=== PATIENT | male | born 1970 | race Hispanic/Latino ===

== ENCOUNTER 2019-07-31 17:30 | Observation (INO) | payer SELFPAY ==
[2019-07-31] VITALS (8 sets, daily range): BP systolic 137–168; BP diastolic 80–95; PULSE 70–90; RESP 16–18; TEMP 36.6–37.2; O2SAT 96–98; BMI 33.3; BMI 34.3; BMI 34.4
--- NOTE | 2019-07-31 17:42 | CT_ITS ---
We are attempting to reach an attending provider to discuss findings. An addendum with communication details will be sent when the communication is complete. STUDY: CT ABDOMEN AND PELVIS WITH CONTRAST REASON FOR EXAM: Male, 48 years old. Right lower quadrant pain RADIATION DOSAGE (If Supplied By Facility): TECHNIQUE: Transaxial images were obtained from the dome of the diaphragm to the symphysis pubis without oral contrast. 100ML ml of 100mL Isovue-300 contrast was administered. Sagittal and coronal images were reconstructed. Individualized dose optimization techniques were used for this CT. COMPARISON: None. FINDINGS: The visualized lung bases are clear. The visualized portions of the heart and pericardium are within normal limits. There are no calcified gallstones present. The liver is within normal limits. There are no suspicious hepatic lesions. The spleen is normal in size. The pancreas is within normal limits. The adrenal glands are within normal limits. There are no obstructing renal stones. There is a right renal upper pole 2 mm stone. There is no hydronephrosis. There are no focal renal lesions. Normal visualized stomach. There is no bowel obstruction or inflammation. There is increased diameter of the appendix with adjacent inflammatory changes. There is trace right lower quadrant free fluid. There is no evidence of rupture or abscess. There is an appendicolith at the appendix base. The aorta is normal in caliber. There is no abdominal or pelvic free air, fluid collection or lymphadenopathy. There are no destructive osseous lesions. CT/Abdomen/Pelvis W IV Cont ONLY IMPRESSION: Acute appendicitis. Right renal upper pole 2 mm nonobstructing stone. Electronically Signed: Hussain Liang, at 19:59 EST Tel , Service support ,
--- NOTE | 2019-07-31 17:44 | ED.VIS.GEN ---
History of Present Illness Chief Complaint: Abd Pain Informant: Patient Onset: Today Context: Gradual Onset Timing: Continuous Current Severity: Moderate Maximum Severity: Severe Narrative: Patient is a 48-year-old male with no significant medical history no prior surgeries who presents to the emergency department abdominal pain. Patient states this morning, he had a dull ache diffusely in his abdomen. He states since then, it radiated to his right lower quadrant. He is been nausea without vomiting. He does admit some chills and sweats. He denies any fevers. He is never had pain like this before. He has no history of prior abdominal surgery. He is otherwise been in his normal state of health. Prior similar symptoms: No Recent Illness/Hospitalization: No Past Medical History - Allergies and Home Meds Allergies/Adverse Reactions: Allergies No Known Allergies Allergy (Verified 07/31/19 17:33) Primary Care Physician: Care Physician,No Primary [Primary Care Provider] - Prior records reviewed: Yes Past Medical History: - - Asthma Surgical History: no surgical history Smoking Status: Current every day smoker Review of Systems General: Reports: Chills. Denies: Fever, Sweats Eyes: Denies: Visual changes - bilaterally, Diplopia ENT: Denies: Rhinorrhea, Sore throat Cardiovascular: Denies: Chest pain, Palpitations Respiratory: Denies: Dyspnea, Cough, Dyspnea on exertion Gastrointestinal: Reports: Abdominal pain, Nausea. Denies: Vomiting, Diarrhea, Melena, Hematochezia Genitourinary: Denies: Dysuria, Hematuria, Frequency Musculoskeletal: Denies: Back pain, Extremity Pain Skin: Denies: Rash, Wounds Neurological: Denies: Headache, Weakness, Numbness Physical Exam Vital Signs/Narrative: Vital Signs Temp Pulse Resp BP Pulse Ox 07/31/19 17:31 97.8 F 72 18 168/95 H 98 Inital Vital Signs reviewed: Yes General: Well nourished, Well developed, No Acute Distress Head: Normocephalic, Atraumatic Eyes: Perrl, EOMI ENT: Moist mucous membranes, No rhinorrhea Neck: Supple, Nontender Cardiovascular: Regular rate, Regular rhythm, No murmurs Respiratory: No distress, CTA bilaterally, Chest nontender Abdomen: Soft, Nondistended, Normal bowel sounds, Tender, Guarding Back: Nontender, Normal Inspection Extremities: Nontender, No edema Skin: Normal color, No rash Neurological: Alert, Oriented x3, Cranial nerves II-XII grossly intact, Normal Strength, Normal Sensation Psychological: Normal affect, Normal Mood Diagnostic/Tx/Re-eval Abnormal Lab Results 07/31/19 07/31/19 17:55 17:55 WBC 14.6 H RBC 5.49 Hgb 18.1 H* Hct 51.3 MCV 93.4 MCH 33.0 H MCHC 35.3 RDW Std Deviation 38.2 RDW Coeff of Elizabeth 11.1 L Plt Count 216 MPV 10.2 Immature Gran % (Auto) 0.400 Neut % (Auto) 81.9 H Lymph % (Auto) 12.4 L [place] % (Auto) 4.6 Eos % (Auto) 0.4 Baso % (Auto) 0.3 Absolute Neuts (auto) 11.9 H Absolute Lymphs (auto) 1.80 Nucleated RBC % 0 Diff Path Review May foll Platelet Estimate ADEQUATE RBC Morphology N CHROM Anisocytosis RARE Macrocytosis RARE Sodium 137 Potassium 4.8 Chloride 107 Carbon Dioxide 25.0 Anion Gap 5 BUN 10 Creatinine 0.73 Estim Creat Clear Calc 105.31 Est GFR (MDRD) Af Amer 146 Est GFR (MDRD) Non-Af 121 BUN/Creatinine Ratio 13.7 Glucose 124 H Calcium 9.1 Total Bilirubin 0.90 AST 37 ALT 56 Alkaline Phosphatase 93 Total Protein 7.8 Albumin 3.7 Globulin 4.1 Albumin/Globulin Ratio 0.9 Lipase 85 - Medical Decision Making The patient presents with worsening pain that radiates into his right lower quadrant with nausea and chills. My concern is for acute appendicitis. IV was established. Patient was given analgesics with some improvement of pain but was still uncomfortable. Screening labs do show leukocytosis. He also has elevated hemoglobin, likely secondary to smoking history. Patient underwent CT of the abdomen pelvis. The formal read is currently pending but it does appear as if he has acute appendicitis without perforation. The patient was started on Zosyn. He was discussed with Dr. Tovar he will be in to evaluate the patient for final disposition. Impression 1. Acute appendicitis ED Disposition - Plan for ED Patient: Referrals: Care Physician,No Primary [Primary Care Provider] -
[2019-07-31] MEDS: 0.9% Normal Saline 1,000 ML 1000 ML IV (18:02)
[2019-07-31] MEDS: Ondansetron 4 MG/2 ML Vial IV (18:02)
[2019-07-31] MEDS: Morphine 4 MG/ML Syringe IV (18:02)
[2019-07-31 18:16] LABS: Absolute Neutrophil Count 11.9 X10^3/uL (2.0-7.7); Basophil# 0.04 X10^3/uL; Basophil% 0.3 % (0-1); Eosinophil# 0.06 X10^3/uL; Eosinophils% 0.4 % (0-5); Hematocrit 51.3 % (40-54); Lymphocyte % 12.4 % (19-41); Mean Corp Hgb Conc 35.3 g/dL (32-36); Mean Corpuscular Volume 93.4 fL (80-94); Mean Platelet Vol. 10.2 fl (6.2-12.0); Monocyte# 0.67 X10^3/uL; Monocyte% 4.6 % (0-10); NRBC Flagged by Analyzer 0 % (0-5); Neutrophil # 11.92 X10^3/uL (2.7-7.7); Neutrophil % 81.9 % (47-70); Platelet Count 216 K/mm3 (150-450); RBC Distribution Width CV 11.1 % (11.6-14.6); RBC Distribution Width SD 38.2 fl (35.1-43.9); Red Blood Count 5.49 M/mm3 (4.6-6.2); White Blood Count 14.6 K/mm3 (4.4-11.0)
[2019-07-31 18:26] LABS: Differential Indicated SCAN CRITERIA MET; Hemoglobin 18.1 g/dL (13.0-16.5)
[2019-07-31 18:28] LABS: ALB/GLOB Ratio 0.9 RATIO (0.9-2.4); AST(SGOT) 37 U/L (15-37); Alanine Aminotransfer ALT/SGPT 56 U/L (16-61); Albumin, Serum 3.7 g/dL (3.2-5.0); Alkaline Phosphatase 93 U/L (45-117); Anion Gap 5 (5-15); BUN 10 mg/dL (7-18); BUN/Creat Ratio 13.7 RATIO (10-20); Calcium,Total 9.1 mg/dL (8.5-10.1); Chloride 107 mmol/L (98-107); Creatinine, Serum 0.73 mg/dL (0.70-1.30); EST Glomerular Filtration Rate 121 mL/min (>60); Est Glom Filt Rate - Afr Amer 146 mL/min (>60); Estimated Creatinine Clearance 105.31 ml/min; Globulin 4.1 g/dL (2.2-4.2); Glucose 124 mg/dL (74-106); Lipase 85 U/L (73-393); Potassium 4.8 mmol/L (3.5-5.1); Protein, Total 7.8 g/dL (6.4-8.2); Sodium Level 137 mmol/L (136-145)
[2019-07-31 18:45] LABS: Anisocytosis RARE; Macrocytosis RARE; Platelet Estimate ADEQUATE (ADEQ); Red Cell Morphology N CHROM NORMAL (NORM C&C)
[2019-07-31] MEDS: HYDROmorphone 1 MG/ML Syringe IV (19:36)
[2019-07-31 19:37] LABS: Bacteria 0 SEEN /hpf (None Seen); Mucous, Urine 0 SEEN /hpf (<or=2+); Red Blood Cells-Urine 0 SEEN /hpf (0-5); Squamous Epithelial Cells - UA 0 SEEN /hpf (0-5); White Blood Cells 0 SEEN /hpf (0-5)
--- NOTE | 2019-07-31 20:02 | HP.PCM_ITS ---
Problem List (1) Acute appendicitis Status: Acute Qualifiers: Acute appendicitis type: with localized peritonitis Appendicitis gangrene presence: unspecified whether gangrene present Appendicitis perforation presence: without perforation Appendicitis abscess presence: without abscess Qualified Code(s): K35.30 - Acute appendicitis with localized peritonitis, without perforation or gangrene History of Present Illness Date of Admission: 07/31/19 The patient is a 48 year old M with no significant medical history no prior surgeries who presents to the emergency department abdominal pain. Patient states this morning, he had a dull ache diffusely in his abdomen. He states since then, it radiated to his right lower quadrant. He is been nausea without vomiting. He does admit some chills and sweats. He denies any fevers. He is never had pain like this before. He has no history of prior abdominal surgery. He is otherwise been in his normal state of health. Past Medical History Allergies No Known Allergies Allergy (Verified 07/31/19 17:33) Home Medications: Ambulatory Orders Medication Instructions Recorded Guaifenesin/Ephedrine HCl 1 ea PO DAILY 07/31/19 [Primatene Asthma Tablet] Surgical History: no surgical history Smoking Status: Current every day smoker Tobacco Use: Cigarettes - *Family History Maternal History Items: No pertinent history Review of Systems Constitutional: Reports: Anorexia, Chills Cardiovascular: Denies: Chest Pain, Chest Pressure, Chest Tightness, Palpitations Respiratory: Denies: Cough, Hemoptysis, Shortness of breath at rest, Shortness of breath upon exertion, Wheezing Gastrointestinal: Reports: Abdominal Pain, Constipation Genitourinary: Denies: Dysuria, Frequency, Hematuria, Urgency VTE Information - Inpt Only VTE Present on Admission: No VTE Mechan Device Prophylaxis: SCD's VTE Pharm Prophylaxis ordered?: No Reason prophylaxis not ordered:: Treatment Not Indicated Patient Problems: Active and Suspected Problems Acute appendicitis (Acute) - Physical Exam Vitals/I&O's: Vital Signs Temp Pulse Resp BP Pulse Ox 97.8 F 70 18 155/80 H 96 07/31/19 17:31 07/31/19 19:30 07/31/19 19:30 07/31/19 19:30 07/31/19 19:30 Oxygen Delivery Method Room Air Weight: 200 lb Body Mass Index (BMI) 33.3 General: Alert, Oriented x3 Oral: Moist Mucosa Neck: Supple, No JVD Lungs: Clear to auscultation Cardiovascular: Regular rate, Regular Rhythm, No murmurs Abdomen: Bowel Sounds Not Present, Guarding, Tender Extremities: No clubbing, No cyanosis, No edema Skin: No rashes, No breakdown Neurological: Cranial nerves II-XII grossly intact Laboratory Results 07/31/19 17:55: WBC 14.6 H, RBC 5.49, Hgb 18.1 H*, Hct 51.3, MCV 93.4, MCH 33.0 H, MCHC 35.3, RDW Std Deviation 38.2, RDW Coeff of [place] 11.1 L, Plt Count 216, MPV 10.2, Immature Gran % (Auto) 0.400, Neut % (Auto) 81.9 H, Lymph % (Auto) 12.4 L, [place] % (Auto) 4.6, Eos % (Auto) 0.4, Baso % (Auto) 0.3, Absolute Neuts (auto) 11.9 H, Absolute Lymphs (auto) 1.80, Nucleated RBC % 0, Diff Path Review May foll, Platelet Estimate ADEQUATE, RBC Morphology N CHROM, Anisocytosis RARE, Macrocytosis RARE 07/31/19 17:55: Sodium 137, Potassium 4.8, Chloride 107, Carbon Dioxide 25.0, Anion Gap 5, BUN 10, Creatinine 0.73, Estim Creat Clear Calc 105.31, Est GFR (MDRD) Af Amer 146, Est GFR (MDRD) Non-Af 121, BUN/Creatinine Ratio 13.7, Glucose 124 H, Calcium 9.1, Total Bilirubin 0.90, AST 37, ALT 56, Alkaline Phosphatase 93, Total Protein 7.8, Albumin 3.7, Globulin 4.1, Albumin/Globulin Ratio 0.9, Lipase 85 07/31/19 19:22: Urine Color Pending, Urine Clarity Pending, Urine pH Pending, Ur Specific [place] Pending, Urine Protein Pending, Urine Glucose (UA) Pending, Urine Ketones Pending, Urine Occult Blood Pending, Urine Nitrite Pending, Urine Bilirubin Pending, Urine Urobilinogen Pending, Ur Leukocyte Esterase Pending, Urine RBC Pending, Urine WBC Pending, Ur Squamous Epith Cells Pending, Urine Bacteria Pending, Urine Mucus Pending Assessment/Plan All Active Problems Acute appendicitis (Acute) Plan is to perform a laparoscopic appendectomy on the patient. Risk benefits to include bleeding infection possible delayed abscess which may require further surgery have been discussed with the patient in addition he understands that there is a risk of blood clots heart attacks pneumonias and/or strokes. He had the opportunity ask questions and he agrees to proceed
[2019-07-31 20:13] LABS: Color, Urine Yellow (Yellow); Glucose, Dipstick Normal (Normal); Ketone-Dipstick Negative (Negative); Leukocyte Esterase-Dipstick Negative /ul (Negative); Nitrite-Dipstick Negative (Negative); Occult Blood-Urine Negative /ul (Negative); Protein-Dipstick Negative (Negative); Urine Bilirubin Dipstick Negative (Negative); Urine Clarity Clear (Clear); Urine Urobilinogen 4 mg/dl (Normal)
--- NOTE | 2019-07-31 20:45 | APP_PTH ---
PATIENT: BENJY DUMONT V LOC: MS3 U#:[id number] AGE/SX: 48/M ROOM: GA312 RE07/31/[address]: Dr. Skyler Tovar MD : 1970 BED: 1 DIS: 08/02/2019 SPEC #: [id number] RECD: 08/01/19 08:31 STATUS: BROOK BERTIN #: [id number] JUNIOR: 07/31/19 20:[address]: Skyler Tovar DEPT: SURGICAL PATHOLOGY RECD BY: Brayan Soliz ENTERED: 08/01/19 09:40 SP TYPE: APPENDIX OTHR DR: No Primary Care Phys Tissues: Appendix, NOS Procedures: Surgery Specimen Level III HEADER OPERATION: Laparoscopic appendectomy PRE-OP DIAGNOSIS: Acute appendicitis TISSUE SUBMITTED: Appendix MICROSCOPIC DIAGNOSIS Appendix, appendectomy: Acute necrotizing appendicitis. Acute serositis. AM:iggy 08/02/19 COMMENT Case has been reviewed in consultation with Dr. Copeland who concurs with the above diagnosis. IDC:SJ MICROSCOPIC DESCRIPTION Slides are reviewed. GROSS DESCRIPTION Received is one container labeled with the patient's name and designated appendix. The specimen consists of a C-shaped appendix measuring 9 cm in length and up to 1 cm in diameter. The attached periappendiceal adipose tissue measures up to 3 cm in width. The serosa is congested and covered with chawla, purulent exudate. No obvious perforation is identified. Tip of appendix shows whitish area measuring 0.5 cm in greatest dimension. The lumen contains fecal material. No fecalith is identified. The entire appendix is submitted in four cassettes. Cassette 1 contains the tip and proximal portion. / CLARENCE:iggy 08/01/19 TC:2 CPT: 30134
--- NOTE | 2019-07-31 20:50 | PCM.OPRPT ---
Problem List (1) Acute appendicitis Status: Acute Qualifiers: Acute appendicitis type: with localized peritonitis Appendicitis gangrene presence: unspecified whether gangrene present Appendicitis perforation presence: without perforation Appendicitis abscess presence: without abscess Qualified Code(s): K35.30 - Acute appendicitis with localized peritonitis, without perforation or gangrene Report of Operation Date of Procedure: 07/31/19 Pre-Operative Diagnosis: Acute appendicitis Post-Operative Diagnosis: Same Surgery/Procedure Performed:: Laparoscopic appendectomy Type of Anesthesia:: General Anesthesiologist: Norma Street Specimen's removed: Appendix Drains: none Estimated Blood Loss (mL): <25 cc Fluids Replaced: 1 L LR Description of Procedure: Patient was brought into the operating room. Placed in the supine position. Under excellent general trach intubation abdomen was sterilely prepped draped usual fashion. Local was injected supraumbilically. Curvilinear incision was made. Dissection was carried down to the fascia. Fascia was grasped with a [place]. Varies needle was placed inside the abdomen. The abdomen was insufflated to 15 torr. A 10/12 trocar was placed without difficulty. Suprapubic #5 trocar was placed in the left lower quadrant #5 trochars placed both of these under direct visualization without injury to underlying structures. Patient was placed in the head down rotated to the left position. Patient was noted to have acute appendicitis I came down on the mesial appendix with an Enseal I had excellent hemostasis I transected the base of the appendix with a 45 linear cutter I had excellent hemostasis I placed a specimen in a specimen bag and delivered through the umbilical port without difficulty. I reinflated the abdomen irrigated out the pelvis irrigated the right lower quadrant and irrigated above the liver all till clear irrigant. No abscess cavity was identified. I remove the trochars under direct visualization good hemostasis was noted. Closed the fascia the umbilical port with a [id number] stitch of 0 Vicryl. Skin incisions were closed with some particular stitches of 4-0 Monocryl. Steri-Strips were applied sterile dressings were applied and the patient tolerated the procedure well. - Admit VTE Documentation VTE Present on Admission: No VTE Mechan Device Prophylaxis: SCD's VTE Pharm Prophylaxis ordered?: No Reason prophylaxis not ordered:: Treatment Not Indicated
[2019-07-31] MEDS: Lactated Ringers 1,000 ML 100 ML IV (23:00)
[2019-08-01] MEDS: HYDROmorphone 1 MG/ML Syringe IV ×5 (00:03→16:35)
[2019-08-01 00:30] VITALS: BP 141/81; PULSE 87; RESP 18; TEMP 36.8; O2SAT 96
[2019-08-01 02:45] VITALS: BP 131/86; PULSE 85; RESP 18; TEMP 36.4; O2SAT 94
--- NOTE | 2019-08-01 07:32 | PCM.PN.SRG ---
Patient Problems: Active and Suspected Problems Acute appendicitis (Acute) Subjective: Patient evaluated resting comfortably in bed. He notes generalized abdominal discomfort. Much improved since admission. Patient notes minimal amount of nausea. Denies vomiting. He noted night sweats however no fever. He tolerated sips of clears overnight. - Physical Exam Vitals/I&O's: Vital Signs Temp Pulse Resp BP Pulse Ox 97.5 F L 85 18 131/86 H 94 08/01/19 02:45 08/01/19 02:45 08/01/19 02:45 08/01/19 02:45 08/01/19 02:45 Oxygen Delivery Method Room Air Weight: 212 lb 15.465 oz Body Mass Index (BMI) 34.3 Intake and Output for Last 24 Hours 07/30/19 07/31/19 08/01/19 23:59 23:59 23:59 Intake Total 1100 / 1200 300 / 300 Output Total 450 / 450 Balance 1100 / 1200 -150 / -150 General: Alert, Oriented x3, Cooperative Abdomen: Soft, Hypoactive Bowel Sounds, Distended, Tender - RLQ, - - Incisions c/d/i. No erythema or infection noted. Very minimal amount of dried blood noted at the umbilical incision. Laboratory Results 07/31/19 17:55: WBC 14.6 H, RBC 5.49, Hgb 18.1 H*, Hct 51.3, MCV 93.4, MCH 33.0 H, MCHC 35.3, RDW Std Deviation 38.2, RDW Coeff of Elizabeth 11.1 L, Plt Count 216, MPV 10.2, Immature Gran % (Auto) 0.400, Neut % (Auto) 81.9 H, Lymph % (Auto) 12.4 L, [place] % (Auto) 4.6, Eos % (Auto) 0.4, Baso % (Auto) 0.3, Absolute Neuts (auto) 11.9 H, Absolute Lymphs (auto) 1.80, Nucleated RBC % 0, Diff Path Review May foll, Platelet Estimate ADEQUATE, RBC Morphology N CHROM, Anisocytosis RARE, Macrocytosis RARE 07/31/19 17:55: Sodium 137, Potassium 4.8, Chloride 107, Carbon Dioxide 25.0, Anion Gap 5, BUN 10, Creatinine 0.73, Estim Creat Clear Calc 105.31, Est GFR (MDRD) Af Amer 146, Est GFR (MDRD) Non-Af 121, BUN/Creatinine Ratio 13.7, Glucose 124 H, Calcium 9.1, Total Bilirubin 0.90, AST 37, ALT 56, Alkaline Phosphatase 93, Total Protein 7.8, Albumin 3.7, Globulin 4.1, Albumin/Globulin Ratio 0.9, Lipase 85 07/31/19 19:22: Urine Color Yellow, Urine Clarity Clear, Urine pH 7.0, Ur Specific [place] 1.010, Urine Protein Negative, Urine Glucose (UA) Normal, Urine Ketones Negative, Urine Occult Blood Negative, Urine Nitrite Negative, Urine Bilirubin Negative, Urine Urobilinogen 4 H, Ur Leukocyte Esterase Negative, Urine RBC 0 SEEN, Urine WBC 0 SEEN, Ur Squamous Epith Cells 0 SEEN, Urine Bacteria 0 SEEN, Urine Mucus 0 SEEN Current Medications Hydromorphone HCl (Dilaudid Inj) 1 - 2 mg IV Q2H PRN PRN PRN Reason: Pain Score 6-10/10 Last Admin: 08/01/19 06:20 Dose: 1 mg Documented by: Lactated Ringer's () 1,000 mls @ 100 mls/hr IV .Q10H [facility] Last Admin: 07/31/19 23:00 Dose: 100 mls/hr Documented by: Piperacillin Sod/Tazobactam (Sod 3.375 gm/ Sodium Chloride) 50 mls @ 12.5 mls/hr IV Q8 [facility] Last Admin: 08/01/19 06:06 Dose: 12.5 mls/hr Documented by: Influenza Virus Vaccine Quadrival (Flucelvax /Fluzone ) 0.5 ml IM .ONCE ONE Stop: 08/01/19 10:01 Ondansetron HCl (Zofran) 4 mg IV Q8H PRN PRN PRN Reason: Nausea Oxycodone HCl (Oxyir) 10 mg PO Q6H PRN PRN PRN Reason: Pain Score 6-10/10 Sodium Chloride () 10 - 40 ml IV UD PRN PRN Reason: SALINE FLUSH Medical Necessity - Tobacco Use Smoking Status: Current every day smoker Tobacco Use: Cigarettes Assessment/Plan All Active Problems Acute appendicitis (Acute) I am following this patient in conjunction with Dr. Tovar. Impression: s/p laparoscopic appendectomy Progressing well Probable discharge later today Code Visit Inpatient E&M: 73660 Subs Hosp L1 - No charge
--- NOTE | 2019-08-01 07:43 | DCINST_ITS ---
Discharge Diet: Light diet - advance as tolerated Discharge Activity: May Not Drive - for 3-5 days or while taking narcotic pain meds. May shower in (days): 1 Lifting Restrictions: 10 pounds for 1 week Call your doctor if your incision/area has: Continuous Slow Oozing, Sudden Increased Bleeding, Increased Pain/ Swelling, Increased Redness, Foul Smelling Discharge Call your doctor if you observe: Fever of 101 or Higher Suture Line Care: Avoid Pulling/Pushing, Avoid Pinching/Bending Cleanse incision/area with: Soap & Water Additional Dressing/Incision Instructions:: Remove waterproof dressings in 2-3 days. Leave steri-strips in place for 1 week. Additional Instructions: You have been prescribed a narcotic medication for pain. If you do not need to take this for pain, ibuprofen or Tylenol will work for pain as well. I would recommend taking a stool softener or Miralax or Milk of magnesia to assist with bowel movement during the first 1 week after surgery or until your bowel movements have returned to your normal. Recommend avoiding foods that may cause gas or bloating as this may make your abdomen more distended and may increase the pain. you may try Gas-X for the bloating/gas pains. Medications to take at Discharge Guaifenesin/Ephedrine HCl [Primatene Asthma Tablet] 2 - 4 tab PO DAILY PRN PRN 07/31/19 Oxycodone HCl/Acetaminophen [Percocet 5/325] 1 - 2 tab PO Q4H PRN PRN 6 Days #30 tab 07/31/19 Allergies/Adverse Reactions: Allergies No Known Allergies Allergy (Verified 07/31/19 17:33) The following prescriptions were given: Oxycodone HCl/Acetaminophen [Percocet 5/325] 1 - 2 tab PO Q4H PRN PRN 6 Days #30 tab PRN Reason: Pain Prescription Printed Primary Care Physician: Care Physician,No Primary [Primary Care Provider] - Test Results: Test results from this visit will be discussed in further detail at your follow- up appointment, if applicable. Please Follow Up With: Cady Wells PA-C - [phone] Proposed Discharge Date: 08/01/19
[2019-08-01 07:51] VITALS: BP 133/87; PULSE 70; RESP 18; TEMP 36.4; O2SAT 95
[2019-08-01] MEDS: Lactated Ringers 1,000 ML 100 ML IV (09:05)
[2019-08-01] MEDS: 0.9% Saline Lock 10 ML Syringe IV ×3 (09:08→22:30)
--- NOTE | 2019-08-01 11:37 | CASEMGMT ---
Social Work Note Pt is listed as self-pay. SW placed a call to [facility] and spoke with Eli in [facility] who will see pt regarding self-pay. Eli Gaffney LOAN INSPECTOR, NURSE STAFF [employer]
[2019-08-01] MEDS: oxyCODONE 5 MG Tablet 10 MG PO ×2 (12:45→22:29)
[2019-08-01 12:49] VITALS: BP 154/98; PULSE 81; RESP 18; TEMP 36.5; O2SAT 96
[2019-08-01 13:30] LABS: Pathologist Review Reviewed
--- NOTE | 2019-08-01 16:12 | CHAPLAIN ---
Type of Pastoral Visit _x__ Initial Visit ___ Follow-up Visit ___ On-call Visit ___ General Patient Visit ___ Spiritual Assessment ___ Family Conference ___ Bereavement ___ Rapid Response ___ Code Blue ___ Other (describe below) Pastoral Care Referral From _x__ Patient ___ Family ___ Nurse ___ Physician ___ Chef Teacher ___ Software Engineering Project Manager ___ Other (describe below) Sacrament/Intervention _x__ Active listening ___ Anointing ___ Presybeterian ___ Bereavement ___ Communion _x__ Yesy exploration ___ _x__ Life review _x__ Prayer ___ Reconciliation ___ Sacrament of Sick _x__ Supportive presence ___ Wedding ___ Other (describe below) Pastoral Comments patient is seeking spiritual direction for his family
[2019-08-01 16:26] VITALS: BP 158/97; PULSE 86; RESP 18; TEMP 36.7; O2SAT 96
[2019-08-01 20:32] VITALS: BP 145/85; PULSE 85; RESP 16; TEMP 36.6; O2SAT 95
[2019-08-02 02:46] VITALS: BP 120/75; PULSE 71; RESP 16; TEMP 36.4; O2SAT 95
[2019-08-02] MEDS: 0.9% Saline Lock 10 ML Syringe IV (05:02)
[2019-08-02] MEDS: oxyCODONE 5 MG Tablet 10 MG PO (05:06)
[2019-08-02 07:49] VITALS: BP 145/95; PULSE 70; RESP 18; TEMP 36.4; O2SAT 97
--- NOTE | 2019-08-02 08:45 | PCM.DC.SUM ---
Discharge Date and Diagnosis - Problem List Patient Problems: Active and Suspected Problems Acute appendicitis (Acute) Date of Admission: 07/31/19 Date of Discharge: 08/02/19 - Primary Discharge Diagnosis Active and Suspected Problems Acute appendicitis (Acute) Hospital Course and Treatment Operations: appendectomy Procedures: None Summary of Care Provided: The patient is a 48 year old M who presented to the ED with right lower quadrant pain. Ct scan of the abdomen/pelvis confirmed acute appendicitis. Dr. Tovar performed a laparoscopic appendectomy on 07/31/2019. Patient tolerated the procedure well. Upon discharge, patient denies nausea, vomiting. He notes abdominal pain has improved. Positive flatus and small bowel movement. Patient Problems: Active and Suspected Problems Acute appendicitis (Acute) - Physical Exam Vitals/I&O's: Vital Signs Temp Pulse Resp BP Pulse Ox 97.6 F L 70 18 145/95 H 97 08/02/19 07:49 08/02/19 07:49 08/02/19 07:49 08/02/19 07:49 08/02/19 07:49 Oxygen Delivery Method Room Air Weight: 212 lb 15.465 oz Body Mass Index (BMI) 34.3 Intake and Output for Last 24 Hours 07/31/19 08/01/19 08/02/19 23:59 23:59 23:59 Intake Total 1100 / 1200 3236.75 / 3236.75 328.25 / 328.25 Output Total 2350 / 2350 Balance 1100 / 1200 886.75 / 886.75 328.25 / 328.25 General: Alert, Oriented x3, Cooperative Abdomen: Soft, Hypoactive Bowel Sounds, Distended - slightly, Tender - minimal RLQ, - - Incisions c/d/i. No erythema or infection noted. Laboratory Results 07/31/19 17:55: Diff Path Review Reviewed Current Medications Hydromorphone HCl (Dilaudid Inj) 1 - 2 mg IV Q2H PRN PRN PRN Reason: Pain Score 6-10/10 Last Admin: 08/01/19 16:35 Dose: 1 mg Documented by: Piperacillin Sod/Tazobactam (Sod 3.375 gm/ Sodium Chloride) 50 mls @ 12.5 mls/hr IV Q8 VIVIAN Last Admin: 08/02/19 05:02 Dose: 12.5 mls/hr Documented by: Sodium Chloride () 250 mls @ 15 mls/hr IV .[id number] PRN PRN Reason: Saline Flush Last Infusion: 08/02/19 05:02 Dose: 0 mls/hr Documented by: Ondansetron HCl (Zofran) 4 mg IV Q8H PRN PRN PRN Reason: Nausea Oxycodone HCl (Oxyir) 10 mg PO Q6H PRN PRN PRN Reason: Pain Score 6-10/10 Last Admin: 08/02/19 05:06 Dose: 10 mg Documented by: Sodium Chloride () 10 - 40 ml IV UD PRN PRN Reason: SALINE FLUSH Last Admin: 08/02/19 05:02 Dose: 10 ml Documented by: Discharge Diet: Light diet - advance as tolerated Discharge Activity: May Not Drive - for 3-5 days or while taking narcotic pain meds. May shower in (days): 1 Call your doctor if your incision/area has: Continuous Slow Oozing, Sudden Increased Bleeding, Increased Pain/ Swelling, Increased Redness, Foul Smelling Discharge Call your doctor if you observe: Fever of 101 or Higher Suture Line Care: Avoid Pulling/Pushing, Avoid Pinching/Bending Cleanse incision/area with: Soap & Water Additional Dressing/Incision Instructions:: Remove waterproof dressings in 2-3 days. Leave steri-strips in place for 1 week. Home Medications: Medications to take at Discharge Guaifenesin/Ephedrine HCl [Primatene Asthma Tablet] 2 - 4 tab PO DAILY PRN PRN 07/31/19 Oxycodone HCl/Acetaminophen [Percocet 5/325] 1 - 2 tab PO Q4H PRN PRN 6 Days #30 tab 07/31/19 Following Prescrptions Were Given to Patient: Oxycodone HCl/Acetaminophen [Percocet 5/325] 1 - 2 tab PO Q4H PRN PRN 6 Days #30 tab PRN Reason: Pain Prescription Printed Primary Care Physician: Care Physician,No Primary [Primary Care Provider] - Please Follow Up With: Cady Wells PA-C - [phone] Additional Instructions: You have been prescribed a narcotic medication for pain. If you do not need to take this for pain, ibuprofen or Tylenol will work for pain as well. I would recommend taking a stool softener or Miralax or Milk of magnesia to assist with bowel movement during the first 1 week after surgery or until your bowel movements have returned to your normal. Recommend avoiding foods that may cause gas or bloating as this may make your abdomen more distended and may increase the pain. you may try Gas-X for the bloating/gas pains. Disposition: Home Patient Condition:: Stable Medical Necessity - Tobacco Use Smoking Status: Current every day smoker Tobacco Use: Cigarettes Meaningful Use Info Meaningful Use Diagnoses (Choose all that apply): None applicable Code Visit Inpatient E&M: 50967 Disch Hosp - No charge
== END 2019-08-02 09:28 | disposition home or self-care (01) ==
LOC: ED 17:57 → SDC 20:37 → MS3 21:38
PROVIDERS: Admitting Provider Surgery; Emergency Provider Emergency Medicine; Visit Provider Surgery
PROC: 0DTJ4ZZ Resection of Appendix, Percutaneous Endoscopic Approach (ICD-10-PCS; CPT 44970; principal; 2019-07-31 20:45)
DX: K35.30 Acute appendicitis with localized peritonitis, without perforation or gangrene (principal); Z23 Encounter for immunization; F17.210 Nicotine dependence, cigarettes, uncomplicated; J45.909 Unspecified asthma, uncomplicated; K21.9 Gastro-esophageal reflux disease without esophagitis
CPT/HCPCS: 44970; 74177; 80053; 81001; 83690; 85025; 88304; 96361; 96365; 96366; 96375; 96376; 99218; 99284; 99406; J7030; J7050; J7120; Q9967; 90686; A4216; C1760; G0378; J2405

== ENCOUNTER 2021-01-22 10:05 | Outpatient (RCR) | payer MEDICARE, SELFPAY ==
[2019-07-31 22:30] VITALS: BMI 34.3
== END 2021-03-03 23:59 ==
LOC: IMMUN 10:05
PROVIDERS: Referring Provider Family Medicine; Visit Provider Family Medicine
DX: Z23 Encounter for immunization (principal)
CPT/HCPCS: 0001A; 0002A; 91300

== ENCOUNTER 2023-02-27 22:15 | Emergency (ER) | payer BC, SELFPAY ==
[2023-02-27 22:15] VITALS: BP 216/117; PULSE 96; RESP 22; TEMP 36.9; O2SAT 97; BMI 32.5
[2023-02-27 22:23] VITALS: BP 193/111; PULSE 99; RESP 16; O2SAT 97
--- NOTE | 2023-02-27 23:03 | EKG12_ITS ---
Test Reason : DYSRHYTHMIA Blood Pressure : / mmHG Vent. Rate : 075 BPM Atrial Rate : 075 BPM P-R Int : 126 ms QRS Dur : 094 ms QT Int : 374 ms P-R-T Axes : 062 050 024 degrees QTc Int : 417 ms Normal sinus rhythm Nonspecific ST abnormality Abnormal ECG Confirmed by RICH RIVERO, XANDER ([id number]), development editor ALIX VÁZQUEZ ([id number]) on 03/01/2023 8:50:32 AM Referred By: SAGRARIO Confirmed By:XADNER VILLANUEVA MD
--- NOTE | 2023-02-27 23:05 | EX.ED.DYSGE1 ---
HPI History of Present Illness Chief Complaint: General Illness Detail of Chief Complaint: Elevated blood pressure, joint pain, bilateral blurred vision, polyuria and Informant: patient Onset/Context/Timing Onset: Days (Detailed in the HPI narrative) Context: Sudden Onset Timing: Continuous Quality: Detailed HPI narrative Location: Detailed HPI narrative Current Severity: Moderate Maximum Severity: Moderate Worsened by: Nothing Relieved by: Nothing Associated Symptoms Associated Symptoms: HPI narrative Narrative Narrative: Pain is a 52-year-old male with history of diabetes who presents with bilateral blurred vision, polyuria polydipsia for the past several days. He has not checked his blood sugar this evening. He is on insulin. Yesterday he complained of significant headache. He does not have a headache presently. He has ringing's ears or decreased hearing. He denies double vision or partial loss of vision. He denies trouble with speech or swallowing. He denies trouble with coordination or balance. He denies paresthesia, anesthesia or motor weakness presently. He did have numbness in his right arm while watching the movies with his son. He denies chest pain. Does endorse shortness of breath and states he has been taking Primatene like it is M&Ms . He is a smoker. He denies history of asthma or COPD. He denies cough. There is no history of VTE and has no risk factor he does complain of right shoulder, elbow and wrist pain. There is no history of gout or pseudogout. He does have history of osteoarthritis of the shoulder. Movement exacerbates his joint pain. He denies nausea, vomiting or diarrhea. Concerned because 1 family member had a stroke at a young age and another number had heart attack. Prior similar symptoms: No Recent Illness/Hospitalization: No [facility] Medical History Borderline hypertension Diabetes Home Medications hydrochlorothiazide 12.5 mg tablet 12.5 mg PO DAILY #30 tabs 02/28/23 [Rx Last Taken Unknown] insulin glargine U-300 conc 300 unit/mL (3 mL) subcutaneous pen (Toujeo Max U-300 SoloStar) 36 unit subcut DAILY 02/28/23 [History Last Taken Unknown] lisinopril 10 mg tablet 10 mg PO DAILY #30 tabs 02/28/23 [Rx Last Taken Unknown] Allergy/AdvReac Type Severity Reaction Status Date / Time No Known Allergies Allergy Verified 02/27/23 22:17 Social History (Updated 02/27/23 @ 23:[address] Clay Calderon MD) household members: family Smoking Status: Current every day smoker tobacco type: cigarettes alcohol intake: current alcohol intake frequency: a few times a month substance use type: does not use ROS ROS ED Constitutional Constitutional ED: Denies chills, fever(s), subjective, sweats or weight loss Eyes Eyes: Reports blurry vision bilateral; Denies change in vision or diplopia ENT ENT ED: Reports ear pain, rhinorrhea and sore throat Cardiovascular Cardiovascular: Denies chest pain, orthopnea, palpitations, paroxysmal nocturnal dyspnea, racing heartbeat or other Respiratory/Chest Respiratory/Chest: Reports dyspnea; Denies cough, dyspnea on exertion, orthopnea or paroxysmal nocturnal dyspnea Gastrointestinal Gastrointestinal: Reports nausea; Denies abdominal pain, constipation, diarrhea, melena or vomiting Genitourinary Genitourinary ED: Denies dysuria, hematuria or urinary frequency Musculoskeletal Musculoskeletal: Reports arthralgias; Denies myalgias Integumentary Denies rash Neurologic Neurologic: Reports paresthesias; Denies headache(s) or weakness Endocrine Endocrinology: Reports cold intolerance, heat intolerance, polydipsia and polyuria Hematologic/Lymphatic Hematologic/Lymphatic: Reports systems reviewed and no addt'l complaints, except as documented EXAM Physical Exam Narrative Exam Narrative: Patient's had several elevated blood pressure readings. Const Vital Signs: 02/27/23 22:15 02/27/23 22:21 02/27/23 22:23 Temperature 98.5 F Temperature Source Temporal Pulse Rate 96 99 Respiratory Rate 22 H 16 Respiratory Effort Short of Breath Respiratory Pattern Normal Blood Pressure 216/117 H 193/111 H Blood Pressure Mean 150 138 Pulse Ox 97 97 Oxygen Delivery Method Room Air 02/28/23 00:22 02/28/23 02:00 Temperature Temperature Source Pulse Rate 68 65 Respiratory Rate 18 16 Respiratory Effort Respiratory Pattern Blood Pressure 174/112 H 175/113 H Blood Pressure Mean 132 133 Pulse Ox 97 99 Oxygen Delivery Method Room Air Positive well nourished and well developed General Appearance ED: well developed and NAD; Negative for cyanotic, diaphoretic or pallor HEENT Reports dry mucous membranes HEENT Narrative: Head is atraumatic normocephalic. Ears normal. Nares patent. Uvula midline. No deviation tongue with protrusion. Mouth ED: Yes dry mucous membranes Mouth: dry mucous membranes Eyes PERRL and EOMs intact bilaterally General Eye ED: Negative for pale conjunctiva or scleral icterus Neck no lymphadenopathy, supple and no JVD Neck Narrative: There are no carotid bruits noted. Chest Wall inspection of chest normal and palpation of chest normal Resp normal respiratory effort and clear to auscultation bilaterally Cardio regular rate, regular rhythm, S1 normal heart sound, S2 normal heart sound and no murmurs GI normal to inspection, nondistended, normoactive bowel sounds, non-tender and non-distended; Negative for hepatosplenomegaly Palpation: soft Neuro oriented x3, CN's II-XII intact bilaterally and no sensory deficits noted Sensorium / Orientation: alert Motor Exam: strength 5/5 throughout Psych mental status grossly normal Skin no rashes or lesions noted, no wounds and skin turgor normal General Skin Exam: Negative for jaundice or pallor MDM MDM MDM Narrative Medical decision making narrative: With history of diabetes and complaint of polyuria and polydipsia and bilateral blurred vision need to evaluate for hyperglycemia. In light of his several elevated blood pressure readings EKG, BMP and UA were obtained to assess for evidence of endorgan dysfunction. Because he complains of dyspnea CBC was obtained to evaluate for anemia. Clinically he does not appear anemic. Lab Data Attestation: I reviewed the patient's lab results. Lab results narrative: CV see as a unremarkable. Basic panel is remarkable for a blood sugar of 389 with a normal CO2 and anion gap. Renal functions normal. Urinalysis is pending. Patient received 8 units of insulin for his hyperglycemia. Because his diastolic is greater than 110 he was given a dose of lisinopril and hydrochlorothiazide in the department. Patient was told he will receive a prescription for blood pressure med and need to follow-up with his doctor. Urinalysis macro is remarkable for glucose only. Micro is pending. Labs: Laboratory Results - last 24 hr 02/27/23 02/27/23 02/27/23 22:40 22:40 23:11 WBC 6.6 RBC 4.93 Hgb 15.8 Hct 47.0 MCV 95.3 H MCH 32.0 MCHC 33.6 RDW Std Deviation 39.8 RDW Coeff of [place] 11.3 L Plt Count 182 MPV 11.2 Immature Gran % (Auto) 1.200 H Neut % (Auto) 44.9 L Lymph % (Auto) 40.5 [place] % (Auto) 7.2 Eos % (Auto) 5.3 H Baso % (Auto) 0.9 Absolute Neuts (auto) 2.9 Absolute Lymphs (auto) 2.66 Nucleated RBC % 0 Sodium 135 L Potassium 4.4 Chloride 104 Carbon Dioxide 24.0 Anion Gap 7 BUN 11 Creatinine 0.89 Estim Creat Clear Calc 88.71 Est GFR (MDRD) Af Amer 115 Est GFR (MDRD) Non-Af 95 BUN/Creatinine Ratio 12.4 Glucose 389 H Calcium 8.6 Urine Color Urine Clarity Urine pH Ur Specific [place] Urine Protein Urine Glucose (UA) Urine Ketones Urine Occult Blood Urine Nitrite Urine Bilirubin Urine Urobilinogen Ur Leukocyte Esterase Urine RBC Urine WBC Ur Squamous Epith Cells Urine Bacteria Urine Mucus POC Glucose 384 H 02/28/23 02/28/23 00:15 01:27 WBC RBC Hgb Hct MCV MCH MCHC RDW Std Deviation RDW Coeff of [place] Plt Count MPV Immature Gran % (Auto) Neut % (Auto) Lymph % (Auto) [place] % (Auto) Eos % (Auto) Baso % (Auto) Absolute Neuts (auto) Absolute Lymphs (auto) Nucleated RBC % Sodium Potassium Chloride Carbon Dioxide Anion Gap BUN Creatinine Estim Creat Clear Calc Est GFR (MDRD) Af Amer Est GFR (MDRD) Non-Af BUN/Creatinine Ratio Glucose Calcium Urine Color Yellow Urine Clarity Clear Urine pH 7.0 Ur Specific [place] 1.005 Urine Protein Negative Urine Glucose (UA) 100 H Urine Ketones Negative Urine Occult Blood Negative Urine Nitrite Negative Urine Bilirubin Negative Urine Urobilinogen Normal Ur Leukocyte Esterase Negative Urine RBC 0 SEEN Urine WBC 0 SEEN Ur Squamous Epith Cells 0 SEEN Urine Bacteria 0 SEEN Urine Mucus 0 SEEN POC Glucose 194 H Rhythm Strip Rhythm Strip: Sinus Rhythm Rate: 86 Ectopy: None EKG Initial EKG: Attestation: I personally reviewed and interpreted this EKG as follows: Interpretation: Sinus Rhythm (Rate is 75. CO interval is 126 ms. Cures duration is 94 ms. QT duration is 374 ms. [place] is normal. There is no acute ischemic changes. There is no evidence of cardiomegaly.) Treatment and Re-Evaluation :: 700 cc of initial liter has infused. Insulin was ordered for hyperglycemia. Since blood pressure is still elevated and there is no evidence of endorgan dysfunction patient was treated with p.o. lisinopril and hydrochlorothiazide. Patient was reassessed at 0122. Blood pressure is 172/112. 0.1 mg of clonidine was ordered. Blood pressure is 172/113. Patient was discharged since this is a significant reduction from presentation of 216/117. He was referred to Dr. Sequeira. Discharge Plan Triage Chief Complaint: General Illness ED Provider: Clay Calderon Dx/Rx/DC Orders Clinical Impression: Type 1 diabetes mellitus with hyperglycemia, Blurred vision, bilateral, Accelerated essential hypertension Prescriptions: New lisinopril 10 mg tablet 10 mg PO DAILY Qty: 30 0RF hydrochlorothiazide 12.5 mg tablet 12.5 mg PO DAILY Qty: 30 0RF No Action Toujeo Max U-300 SoloStar 300 unit/mL (3 mL) insulin pen 36 unit SUBCUT DAILY Label Comments: INJECT 36 UNITS INTO THE SKIN ONCE AT BEDTIME Primary Care Provider: Care Physician,No Primary Referrals: Michael Sequeira MD [Med Staff - [employer]ite [employer] Representative] - 1-2 Weeks Care Physician,No Primary [Primary Care Provider] - Disposition Disposition: Home, Self Care
[2023-02-27] MEDS: 0.9% Normal Saline 1,000 ML 1000 ML IV (23:12)
[2023-02-27 23:31] LABS: Absolute Lymphocyte Count 2.66 X10^3/uL (0.83-4.51); Absolute Neutrophil Count 2.9 X10^3/uL (2.0-7.7); Basophil# 0.06 X10^3/uL; Basophil% 0.9 % (0-1); Eosinophil# 0.35 X10^3/uL; Eosinophils% 5.3 % (0-5); Hemoglobin 15.8 g/dL (13.0-16.5); Lymphocyte # 2.66 X10^3/ul (0.83-4.51); Lymphocyte % 40.5 % (19-41); Mean Corp Hgb Conc 33.6 g/dL (32-36); Mean Corpuscular Volume 95.3 fL (80-94); Mean Platelet Vol. 11.2 fl (6.2-12.0); Monocyte# 0.47 X10^3/uL; Monocyte% 7.2 % (0-10); NRBC Flagged by Analyzer 0 % (0-5); Neutrophil # 2.94 X10^3/uL (2.7-7.7); Neutrophil % 44.9 % (47-70); Platelet Count 182 K/mm3 (150-450); RBC Distribution Width CV 11.3 % (11.6-14.6); RBC Distribution Width SD 39.8 fl (35.1-43.9); Red Blood Count 4.93 M/mm3 (4.6-6.2); White Blood Count 6.6 K/mm3 (4.4-11.0)
[2023-02-27 23:32] LABS: Bedside Glucose 384 mg/dL (74-106)
[2023-02-27 23:36] LABS: Anion Gap 7 (5-15); BUN 11 mg/dL (7-18); BUN/Creat Ratio 12.4 RATIO (10-20); Calcium,Total 8.6 mg/dL (8.5-10.1); Chloride 104 mmol/L (98-107); Creatinine, Serum 0.89 mg/dL (0.70-1.30); EST Glomerular Filtration Rate 95 mL/min (>60); Est Glom Filt Rate - Afr Amer 115 mL/min (>60); Estimated Creatinine Clearance 88.71 ml/min; Glucose 389 mg/dL (74-106); Potassium 4.4 mmol/L (3.5-5.1); Sodium Level 135 mmol/L (136-145)
[2023-02-28 00:21] LABS: Bacteria 0 SEEN /hpf (None Seen); Mucous, Urine 0 SEEN /hpf (<or=2+); Red Blood Cells-Urine 0 SEEN /hpf (0-5); Squamous Epithelial Cells - UA 0 SEEN /hpf (0-5); White Blood Cells 0 SEEN /hpf (0-5)
[2023-02-28 00:22] VITALS: BP 174/112; PULSE 68; RESP 18; O2SAT 97
[2023-02-28] MEDS: Insulin Lispro 100 UNIT/ML INSULN.PEN 8 UNIT SC (00:27)
[2023-02-28 00:29] LABS: Color, Urine Yellow (Yellow); Glucose, Dipstick 100 mg/dl (Normal); Ketone-Dipstick Negative (Negative); Leukocyte Esterase-Dipstick Negative /ul (Negative); Nitrite-Dipstick Negative (Negative); Occult Blood-Urine Negative /ul (Negative); Protein-Dipstick Negative (Negative); Specific Gravity, Urine 1.005 (1.002-1.030); Urine Bilirubin Dipstick Negative (Negative); Urine Clarity Clear (Clear); Urine Urobilinogen Normal (Normal)
[2023-02-28] MEDS: Lisinopril 10 MG Tablet PO (00:37)
[2023-02-28] MEDS: hydroCHLOROthiazide 25 MG Tablet 12.5 MG PO (00:37)
[2023-02-28] MEDS: cloNIDine HCl 0.1 MG Tablet PO (01:28)
[2023-02-28 01:48] LABS: Bedside Glucose 194 mg/dL (74-106)
[2023-02-28 02:00] VITALS: BP 175/113; PULSE 65; RESP 16; O2SAT 99
== END 2023-02-28 03:09 | disposition home or self-care (01) ==
PROVIDERS: Emergency Provider Emergency Medicine; Visit Provider Emergency Medicine
DX: E10.65 Type 1 diabetes mellitus with hyperglycemia (principal); Z79.4 Long term (current) use of insulin; R35.89 Other polyuria; I10 Essential (primary) hypertension; F17.210 Nicotine dependence, cigarettes, uncomplicated; R06.02 Shortness of breath; H53.8 Other visual disturbances
CPT/HCPCS: 80048; 81001; 82962; 85025; 93005; 96360; 96361; 99284; J7030; A4216

== ENCOUNTER 2023-07-23 00:20 | Emergency (ER) | payer BC, SELFPAY ==
[2023-07-23 00:23] VITALS: BP 140/115; PULSE 76; RESP 16; TEMP 36.6; O2SAT 98; BMI 29.5
--- NOTE | 2023-07-23 00:44 | EDS_ITS ---
HPI History of Present Illness Chief Complaint: Hyperglycemia Informant: patient Narrative Narrative: Patient having full body cramping, aching, polydipsia, polyuria, dry mouth for 1-2 weeks. He is a known diabetic, batteries were in his glucometer, he got it fixed tonight and checked his blood sugar and it was reading high so he came to the ER. He states for the past week, he has been on an unknown once daily antibiotic for a sore area on his left lower lateral leg. He states early on before he started the antibiotic he had some spontaneous drainage from it in the shower but he did not pay attention because he did not want to look at it. Since then, no other drainage. He states it is still there and sore/painful, but not getting any worse. Denies any other recent illnesses, denies any recent cough, fevers or chills, or other symptoms. [facility] Medical History Borderline hypertension Diabetes Home Medications hydrochlorothiazide 12.5 mg tablet 12.5 mg PO DAILY #30 tabs 02/28/23 [Rx Last Taken Unknown] insulin glargine U-300 conc 300 unit/mL (3 mL) subcutaneous pen (Toujeo Max U- 300 SoloStar) 36 unit subcut DAILY 02/28/23 [History Last Taken Unknown] lisinopril 10 mg tablet 10 mg PO DAILY #30 tabs 02/28/23 [Rx Last Taken Unknown] Allergy/AdvReac Type Severity Reaction Status Date / Time No Known Allergies Allergy Verified 07/23/23 00:22 Social History household members: family Smoking Status: Current every day smoker tobacco type: cigarettes alcohol intake: current alcohol intake frequency: a few times a month substance use type: does not use ROS ROS ED Constitutional Constitutional ED: Reports body ache(s) and malaise; Denies chills or fever(s) Eyes Eyes: Denies change in vision or diplopia ENT ENT ED: Reports dry mouth; Denies rhinorrhea or sore throat Cardiovascular Cardiovascular: Denies chest pain or palpitations Respiratory/Chest Respiratory/Chest: Denies cough or dyspnea Gastrointestinal Gastrointestinal: Denies abdominal pain, diarrhea, nausea or vomiting Genitourinary Genitourinary ED: Reports urinary frequency; Denies dysuria or hematuria Musculoskeletal Musculoskeletal: Reports back pain; Denies neck pain Integumentary Reports abscess; Denies rash Neurologic Neurologic: Denies headache(s), paresthesias or weakness Psychiatric Psychiatric: Denies anxiety or suicidal thoughts Endocrine Endocrinology: Reports polydipsia and polyuria EXAM Physical Exam Const Vital Signs: 07/23/23 00:23 07/23/23 01:00 Temperature 97.8 F Temperature Source Temporal Pulse Rate 76 Respiratory Rate 16 Respiratory Effort Normal Non-Labored Respiratory Pattern Normal Blood Pressure 140/115 H Blood Pressure Mean 123 Pulse Ox 98 Oxygen Delivery Method Room Air Positive well nourished and well developed Constitutional Narrative: Well-appearing in no distress. Conversive in full sentences, smiling, laughing. General Appearance ED: well developed and NAD HEENT Reports moist mucous membranes normocephalic and atraumatic Eyes PERRL and EOMs intact bilaterally Neck full ROM and supple Resp normal respiratory effort and clear to auscultation bilaterally Cardio regular rate, regular rhythm and no murmurs Rate: Negative for tachycardic GI non-tender and non-distended Auscultation: normoactive bowel sounds Palpation: soft Back/Spine no CVA tenderness General Back: other FROM Extremity normal to inspection Extremity Narrative: Tender small abscess left lateral lower leg, 2 cm in diameter with some induration no spontaneous discharge expressible, borderline pointing. No lymphangitis. General Extremety ED: Yes tenderness; Negative for edema or pulses abnormal General Extremity: Negative for edema or pulses abnormal Neuro oriented x3, CN's II-XII intact bilaterally and no sensory deficits noted Sensorium / Orientation: awake and alert Motor Exam: strength 5/5 throughout Psych mental status grossly normal Skin no rashes or lesions noted and no wounds Skin Narrative: Small abscess lateral aspect of the left lower leg in the middle of it. All compartments soft and nondistended. See above. MDM MDM MDM Narrative Medical decision making narrative: Patient hyperglycemic in the 500s with glycosuria but otherwise work-up negative. He felt a lot better after IV fluids and insulin. Initially patient indicated that he took 2 doses of fast acting insulin prior to arrival, however then he said he was not sure if he took a fast acting or his Toujeo. After a liter of IV fluids, his blood sugar came down to just under 400 so at that point we gave him a dose of insulin. I believe the majority of his symptoms were due to hyperglycemia and mild dehydration. 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 We were able to aspirate some purulent material from that which hopefully will make it better. We looked up some pharmacy information and were able to determine that he was prescribed Bactrim twice daily for 10 days but he has indicated he is only taking it once a day and thinks he mixed it up with his blood pressure medication which she is also taking once a day as prescribed. It is possible this is MRSA, I would advise todd pedroza taking the Bactrim twice daily and continuing that medication for the next 5 days which she has enough pills for, and dressing the area as needed. He has an appointment with PCP in 3 days he is comfortable with that plan. Lab Data Attestation: I reviewed the patient's lab results. Labs: Laboratory Results - last 24 hr 07/23/23 07/23/23 07/23/23 00:27 00:50 01:50 WBC 7.8 RBC 5.34 Hgb 16.9 H Hct 48.6 MCV 91.0 MCH 31.6 MCHC 34.8 RDW Std Deviation 36.0 RDW Coeff of [place] 10.7 L Plt Count 181 MPV 11.3 Immature Gran % (Auto) 0.100 Neut % (Auto) 51.6 Lymph % (Auto) 38.5 [place] % (Auto) 6.3 Eos % (Auto) 2.9 Baso % (Auto) 0.6 Absolute Neuts (auto) 4.0 Absolute Lymphs (auto) 3.01 Nucleated RBC % 0 Sodium 130 L Potassium 5.0 Chloride 96 L Carbon Dioxide 28.0 Anion Gap 6 BUN 16 Creatinine 1.11 Estim Creat Clear Calc 71.13 Est GFR (MDRD) Af Amer 89 Est GFR (MDRD) Non-Af 73 BUN/Creatinine Ratio 14.4 Glucose 535 H* Calcium 9.7 Urine Color Yellow Urine Clarity Clear Urine pH 6.0 Ur Specific [place] 1.015 Urine Protein Negative Urine Glucose (UA) 1000 H Urine Ketones Negative Urine Occult Blood Negative Urine Nitrite Negative Urine Bilirubin Negative Urine Urobilinogen Normal Ur Leukocyte Esterase Negative Urine RBC 0 SEEN Urine WBC 0 SEEN Ur Squamous Epith Cells 0 SEEN Urine Bacteria 0 SEEN Urine Mucus 0 SEEN POC Glucose > 500 H* 07/23/23 02:04 WBC RBC Hgb Hct MCV MCH MCHC RDW Std Deviation RDW Coeff of [place] Plt Count MPV Immature Gran % (Auto) Neut % (Auto) Lymph % (Auto) [place] % (Auto) Eos % (Auto) Baso % (Auto) Absolute Neuts (auto) Absolute Lymphs (auto) Nucleated RBC % Sodium Potassium Chloride Carbon Dioxide Anion Gap BUN Creatinine Estim Creat Clear Calc Est GFR (MDRD) Af Amer Est GFR (MDRD) Non-Af BUN/Creatinine Ratio Glucose Calcium Urine Color Urine Clarity Urine pH Ur Specific [place] Urine Protein Urine Glucose (UA) Urine Ketones Urine Occult Blood Urine Nitrite Urine Bilirubin Urine Urobilinogen Ur Leukocyte Esterase Urine RBC Urine WBC Ur Squamous Epith Cells Urine Bacteria Urine Mucus POC Glucose 398 H Procedures Other Procedures Procedure(s): Simple incision and drainage left lower leg abscess: After locally anesthetizing with 1 cc of plain 1% lidocaine, prepped with chlorhexidine, the patient opted for needle aspiration with an 18-gauge. This was done, and I was able to aspirate less than 0.5 cc of purulent material, redirecting the needle and collapsing the abscess in addition to obtain all possible. Tolerated well no complications dressed with bacitracin and gauze. Discharge Plan Triage Chief Complaint: Hyperglycemia ED Provider: Jayson Reyes Dx/Rx/DC Orders Clinical Impression: Hyperglycemia due to type 2 diabetes mellitus, Abscess of left lower leg, Mild dehydration Instructions: ED Diabetic Hyperglycemia Prescriptions: No Action Toujeo Max U-300 SoloStar 300 unit/mL (3 mL) insulin pen 36 unit SUBCUT DAILY Patient Comments: INJECT 36 UNITS INTO THE SKIN ONCE AT BEDTIME lisinopril 10 mg tablet 10 mg PO DAILY Qty: 30 0RF hydrochlorothiazide 12.5 mg tablet 12.5 mg PO DAILY Qty: 30 0RF Primary Care Provider: Care Physician,No Primary Referrals: Doctor,Your [Non-Staff] - Keep Rosalino appointment Activity Restrictions/Additional Instructions: Continue the antibiotic as prescribed which is 1 capsule 2 times per day. Disposition Disposition: Home, Self Care
[2023-07-23 00:45] LABS: Bedside Glucose > 500 mg/dL (74-106)
[2023-07-23 01:02] LABS: Absolute Lymphocyte Count 3.01 X10^3/uL (0.83-4.51); Basophil# 0.05 X10^3/uL; Basophil% 0.6 % (0-1); Eosinophil# 0.23 X10^3/uL; Eosinophils% 2.9 % (0-5); Hematocrit 48.6 % (40-54); Hemoglobin 16.9 g/dL (13.0-16.5); Lymphocyte # 3.01 X10^3/ul (0.83-4.51); Lymphocyte % 38.5 % (19-41); Mean Corp Hgb Conc 34.8 g/dL (32-36); Mean Corpuscular Hgb 31.6 pg (27.0-32.0); Mean Platelet Vol. 11.3 fl (6.2-12.0); Monocyte# 0.49 X10^3/uL; Monocyte% 6.3 % (0-10); NRBC Flagged by Analyzer 0 % (0-5); Neutrophil # 4.02 X10^3/uL (2.7-7.7); Neutrophil % 51.6 % (47-70); Platelet Count 181 K/mm3 (150-450); RBC Distribution Width CV 10.7 % (11.6-14.6); Red Blood Count 5.34 M/mm3 (4.6-6.2); White Blood Count 7.8 K/mm3 (4.4-11.0)
[2023-07-23] MEDS: 0.9% Normal Saline (1000mL) 1,000 ML 999 ML IV (01:02)
[2023-07-23] MEDS: Lidocaine 1% (20 ml mdv) 20 ML Vial INFILT (01:03)
[2023-07-23 01:20] LABS: Anion Gap 6 (5-15); BUN 16 mg/dL (7-18); BUN/Creat Ratio 14.4 RATIO (10-20); Calcium,Total 9.7 mg/dL (8.5-10.1); Chloride 96 mmol/L (98-107); Creatinine, Serum 1.11 mg/dL (0.70-1.30); EST Glomerular Filtration Rate 73 mL/min (>60); Est Glom Filt Rate - Afr Amer 89 mL/min (>60); Estimated Creatinine Clearance 71.13 ml/min; Glucose 535 mg/dL (74-106); Sodium Level 130 mmol/L (136-145)
[2023-07-23 01:56] LABS: Bacteria 0 SEEN /hpf (None Seen); Mucous, Urine 0 SEEN /hpf (<or=2+); Red Blood Cells-Urine 0 SEEN /hpf (0-5); Squamous Epithelial Cells - UA 0 SEEN /hpf (0-5); White Blood Cells 0 SEEN /hpf (0-5)
[2023-07-23 02:00] LABS: Color, Urine Yellow (Yellow); Glucose, Dipstick 1000 mg/dl (Normal); Ketone-Dipstick Negative (Negative); Leukocyte Esterase-Dipstick Negative /ul (Negative); Nitrite-Dipstick Negative (Negative); Occult Blood-Urine Negative /ul (Negative); Protein-Dipstick Negative (Negative); Specific Gravity, Urine 1.015 (1.002-1.030); Urine Bilirubin Dipstick Negative (Negative); Urine Clarity Clear (Clear); Urine Urobilinogen Normal (Normal)
[2023-07-23] MEDS: Insulin Lispro 100 UNIT/ML INSULN.PEN 14 UNIT SC (02:22)
[2023-07-23 02:23] LABS: Bedside Glucose 398 mg/dL (74-106)
[2023-07-23] MEDS: Smz/Tmp Ds Tablet 1 TABLET PO (02:48)
[2023-07-23 02:51] VITALS: BP 139/77; PULSE 84; RESP 18; O2SAT 95
== END 2023-07-23 02:52 | disposition home or self-care (01) ==
PROVIDERS: Emergency Provider Emergency Medicine; Visit Provider Emergency Medicine
DX: E11.65 Type 2 diabetes mellitus with hyperglycemia (principal); Z79.4 Long term (current) use of insulin; L02.416 Cutaneous abscess of left lower limb; R03.0 Elevated blood-pressure reading, without diagnosis of hypertension; E86.0 Dehydration; F17.210 Nicotine dependence, cigarettes, uncomplicated; Z79.899 Other long term (current) drug therapy
CPT/HCPCS: 10160; 10060; 80048; 81001; 82962; 85025; 96360; 96361; 99284; J7030; A4216

== ENCOUNTER 2023-12-24 14:25 | Emergency (ER) | payer BC, SELFPAY ==
[2023-12-24 14:26] VITALS: BP 144/100; PULSE 92; RESP 14; O2SAT 98
[2023-12-24 14:27] VITALS: BP 177/90; PULSE 96; RESP 16; TEMP 36.6; O2SAT 98; BMI 34.0
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
[2023-12-24] MEDS: Ibuprofen 600 MG Tablet PO (14:59)
== END 2023-12-24 15:03 | disposition home or self-care (01) ==
PROVIDERS: Emergency Provider Emergency Medicine; Visit Provider Emergency Medicine
DX: S16.1XXA Strain of muscle, fascia and tendon at neck level, initial encounter (principal); E11.9 Type 2 diabetes mellitus without complications; Z79.4 Long term (current) use of insulin; V43.52XA Car driver injured in collision with other type car in traffic accident, initial encounter; Y92.410 Unspecified street and highway as the place of occurrence of the external cause; R03.0 Elevated blood-pressure reading, without diagnosis of hypertension; F17.210 Nicotine dependence, cigarettes, uncomplicated
CPT/HCPCS: 99282

== ENCOUNTER 2024-09-08 14:06 | Emergency (ER) | payer BC, SELFPAY ==
[2024-09-08 14:06] VITALS: BP 151/96; PULSE 86; RESP 14; TEMP 36.6; O2SAT 98; BMI 28.3
[2024-09-08 14:20] VITALS: BP 138/90; PULSE 69; RESP 18; O2SAT 98
--- NOTE | 2024-09-08 14:22 | EX.ED.DYSGE1 ---
HPI <JOSE Major - Last Filed: 09/08/24 17:16> History of Present Illness Chief Complaint: Med Refill Narrative Narrative: Patient presenting today requesting to have his insulin refilled. He has been out of it for the past week and a half and does not currently have a PCP to get it refilled. He endorses polyuria and polydipsia. He has a history of diabetes and was previously on metformin but did not tolerate it well. He denies fevers, chills, nausea, and vomiting. PFSH <JOSE Major - Last Filed: 09/08/24 17:16> [facility] Medical History Borderline hypertension Diabetes Home Medications ?Medication ?Instructions ?Recorded ?Last Taken ?Type hydrochlorothiazide 12.5 mg tablet 12.5 mg PO DAILY #30 tabs 02/28/23 Unknown Rx insulin glargine U-300 conc 300 36 unit subcut DAILY 02/28/23 Unknown History unit/mL (3 mL) subcutaneous pen (Toujeo Max U-300 SoloStar) lisinopril 10 mg tablet 10 mg PO DAILY #30 tabs 02/28/23 Unknown Rx insulin glargine U-300 conc 300 30 unit (0.1 mL) subcut DAILY #6 mL 09/08/24 Unknown Rx unit/mL (3 mL) subcutaneous pen (Toujeo Max U-300 SoloStar) Allergy/AdvReac Type Severity Reaction Status Date / Time No Known Allergies Allergy Verified 12/24/23 14:26 Social History household members: family Smoking Status: Current every day smoker tobacco type: cigarettes alcohol intake: current alcohol intake frequency: a few times a month substance use type: does not use ROS <JOSE Major - Last Filed: 09/08/24 17:16> ROS ED Constitutional Constitutional ED: Denies chills or fever(s) Cardiovascular Cardiovascular: Denies chest pain Respiratory/Chest Respiratory/Chest: Denies dyspnea Gastrointestinal Gastrointestinal: Denies abdominal pain, nausea or vomiting Genitourinary Genitourinary ED: Reports urinary frequency; Denies dysuria or hematuria Musculoskeletal Musculoskeletal: Denies arthralgias or myalgias Integumentary Denies rash Neurologic Neurologic: Denies weakness EXAM <JOSE Major - Last Filed: 09/08/24 17:16> Physical Exam Const Vital Signs: 09/08/24 14:06 09/08/24 14:20 09/08/24 16:20 Temperature 98 F Temperature Source Temporal Pulse Rate 86 69 70 Respiratory Rate 14 18 16 Blood Pressure 151/96 H 138/90 H 147/85 H Blood Pressure Mean 114 106 105 Pulse Ox 98 98 98 Oxygen Delivery Method Room Air Room Air Room Air 09/08/24 17:13 Temperature 97.7 F L Temperature Source Pulse Rate 77 Respiratory Rate 16 Blood Pressure 140/71 H Blood Pressure Mean 94 Pulse Ox 98 Oxygen Delivery Method Positive well nourished, well developed and no apparent distress General Appearance ED: well developed HEENT Reports normocephalic, head/scalp atraumatic and dry mucous membranes Mouth ED: Yes dry mucous membranes Mouth: dry mucous membranes Eyes PERRL and EOMs intact bilaterally Neck full ROM and supple Chest Wall inspection of chest normal Resp normal respiratory effort and clear to auscultation bilaterally Cardio regular rate and regular rhythm GI soft to palpation, non-tender, non-distended and no masses Back/Spine normal ROM and normal to inspection Extremity normal to inspection and full ROM Neuro oriented x3, CN's II-XII intact bilaterally, moves all extremities, no focal motor deficits and no sensory deficits noted Sensorium / Orientation: awake and alert Psych mental status grossly normal and thought process normal Skin no rashes or lesions noted and no wounds <Dr. Clay Calderon MD - Last Filed: 09/08/24 16:07> Physical Exam Const Vital Signs: 09/08/24 14:06 09/08/24 14:20 09/08/24 16:20 Temperature 98 F Temperature Source Temporal Pulse Rate 86 69 70 Respiratory Rate 14 18 16 Blood Pressure 151/96 H 138/90 H 147/85 H Blood Pressure Mean 114 106 105 Pulse Ox 98 98 98 Oxygen Delivery Method Room Air Room Air Room Air 09/08/24 17:13 Temperature 97.7 F L Temperature Source Pulse Rate 77 Respiratory Rate 16 Blood Pressure 140/71 H Blood Pressure Mean 94 Pulse Ox 98 Oxygen Delivery Method MDM <JOSE Major - Last Filed: 09/08/24 17:16> MDM MDM Narrative Medical decision making narrative: Patient presenting today requesting to have his insulin refilled. He endorses polyuria and polydipsia. He asked for water several times during my exam and his mucous membranes are dry. Bedside glucose was checked and is 510. Labs will be obtained to rule out DKA and patient will be given a liter of IV fluids. His CBC is unremarkable, sodium 131, glucose 572, UA shows no ketones, he has no anion gap, he does not appear to be in DKA. He was given 10 units of Humalog. On reexamination his glucose is now 323. I have refilled his insulin prescription. I gave him a PCP referral. Encouraged diabetic compliance. He will be discharged home in stable condition. I have personally performed a face to face assessment of the patient and have reviewed the ADITI Note. I performed a substantive portion of the visit including all aspects of the following. My sanders findings include: History is remarkable for patient going to [place] to visit his mother. Apparently he did not have insulin. 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 He went to a pharmacy in [place]. He was informed that his prescription could not be refilled since there was no refills remaining. He presents today for medication refill. Patient's speech is slightly pressured. He does endorse thirst, dry mouth and polyphasia, polyuria and nocturia. He states his tongue and mouth is dry. He denies fever, chills night sweats. He denies cardiac respiratory symptoms. He denies skin lesions. Exam is elevated blood pressure. HEENT exam is remarkable dry tongue and mucosa. Heart is regular. Rate is normal. Is no murmur, gallop or rub. Lungs are clear auscultation with symmetric breath sounds. Abdomen soft nontender. Patient has numerous tattoos. He is alert orient x 3. His speech is slightly pressured. He has no motor or sensory deficit. Medical Decision Making patient's symptoms are consistent with hyperglycemia. Stat blood sugar was greater than 500. Will obtain BMP to assess CO2 anion gap as well as electrolytes. CBC to assess white count and if there is any concern for infection. Urine was obtained to assess for infection as well as ketones and specific gravity. If patient has anion gap we will obtain serum ketones. Patient is not tachypneic which makes likelihood for DKA less likely. Other additions or changes: [None] Lab Data Labs: Laboratory Results - last 24 hr 09/08/24 09/08/24 09/08/24 14:19 14:52 15:00 WBC 9.8 RBC 4.91 Hgb 16.1 Hct 44.0 MCV 89.6 MCH 32.8 H MCHC 36.6 H RDW Std Deviation 35.8 RDW Coeff of Elizabeth 11.1 L Plt Count 228 MPV 10.9 Immature Gran % (Auto) 0.200 Neut % (Auto) 56.5 Lymph % (Auto) 34.7 Vernon % (Auto) 6.7 Eos % (Auto) 1.4 Baso % (Auto) 0.5 Absolute Neuts (auto) 5.5 Absolute Lymphs (auto) 3.40 Nucleated RBC % 0 Sodium 131 L Potassium 4.0 Chloride 96 L Carbon Dioxide 26.0 Anion Gap 9 BUN 18 Creatinine 0.97 Estim Creat Clear Calc 88.24 Est GFR (MDRD) Af Amer 104 Est GFR (MDRD) Non-Af 86 BUN/Creatinine Ratio 18.6 Glucose 572 H* Calcium 9.1 Urine Color Yellow Urine Clarity Clear Urine pH 6.0 Ur Specific [place] 1.015 Urine Protein Negative Urine Glucose (UA) 1000 H Urine Ketones Negative Urine Occult Blood Negative Urine Nitrite Negative Urine Bilirubin Negative Urine Urobilinogen Normal Ur Leukocyte Esterase Negative Urine RBC 0-5 SEEN Urine WBC 0 SEEN Ur Squamous Epith Cells 0 SEEN Urine Bacteria RARE Urine Mucus 0 SEEN POC Glucose > 500 H* <Dr. Clay Calderon MD - Last Filed: 09/08/24 16:07> [facility] Narrative Medical decision making narrative: Patient presenting today requesting to have his insulin refilled. He endorses polyuria and polydipsia. He asked for water several times during my exam and his mucous membranes are dry. Bedside glucose was checked and is 510. Labs will be obtained to rule out DKA and patient will be given IV fluids. I have personally performed a face to face assessment of the patient and have reviewed the ADITI Note. I performed a substantive portion of the visit including all aspects of the following. My sanders findings include: History is remarkable for patient going to [place] to visit his mother. Apparently he did not have insulin. 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 He went to a pharmacy in [place]. He was informed that his prescription could not be refilled since there was no refills remaining. He presents today for medication refill. Patient's speech is slightly pressured. He does endorse thirst, dry mouth and polyphasia, polyuria and nocturia. He states his tongue and mouth is dry. He denies fever, chills night sweats. He denies cardiac respiratory symptoms. He denies skin lesions. Exam is elevated blood pressure. HEENT exam is remarkable dry tongue and mucosa. Heart is regular. Rate is normal. Is no murmur, gallop or rub. Lungs are clear auscultation with symmetric breath sounds. Abdomen soft nontender. Patient has numerous tattoos. He is alert orient x 3. His speech is slightly pressured. He has no motor or sensory deficit. Medical Decision Making patient's symptoms are consistent with hyperglycemia. Stat blood sugar was greater than 500. Will obtain BMP to assess CO2 anion gap as well as electrolytes. CBC to assess white count and if there is any concern for infection. Urine was obtained to assess for infection as well as ketones and specific gravity. If patient has anion gap we will obtain serum ketones. Patient is not tachypneic which makes likelihood for DKA less likely. Other additions or changes: [None] Lab Data Attestation: I reviewed the patient's lab results. Lab results narrative: CBC is unremarkable. Urinalysis is positive for glucose urea. BGT was greater than 500. There was no ketones noted. BMP reveals a blood sugar of 572. CO2 and anion gap are normal. Patient has evidence of pseudohyponatremia due to his hyperglycemia. Labs: Laboratory Results - last 24 hr 09/08/24 09/08/24 09/08/24 14:19 14:52 15:00 WBC 9.8 RBC 4.91 Hgb 16.1 Hct 44.0 MCV 89.6 MCH 32.8 H MCHC 36.6 H RDW Std Deviation 35.8 RDW Coeff of Elizabeth 11.1 L Plt Count 228 MPV 10.9 Immature Gran % (Auto) 0.200 Neut % (Auto) 56.5 Lymph % (Auto) 34.7 Vernon % (Auto) 6.7 Eos % (Auto) 1.4 Baso % (Auto) 0.5 Absolute Neuts (auto) 5.5 Absolute Lymphs (auto) 3.40 Nucleated RBC % 0 Sodium 131 L Potassium 4.0 Chloride 96 L Carbon Dioxide 26.0 Anion Gap 9 BUN 18 Creatinine 0.97 Estim Creat Clear Calc 88.24 Est GFR (MDRD) Af Amer 104 Est GFR (MDRD) Non-Af 86 BUN/Creatinine Ratio 18.6 Glucose 572 H* Calcium 9.1 Urine Color Yellow Urine Clarity Clear Urine pH 6.0 Ur Specific [place] 1.015 Urine Protein Negative Urine Glucose (UA) 1000 H Urine Ketones Negative Urine Occult Blood Negative Urine Nitrite Negative Urine Bilirubin Negative Urine Urobilinogen Normal Ur Leukocyte Esterase Negative Urine RBC 0-5 SEEN Urine WBC 0 SEEN Ur Squamous Epith Cells 0 SEEN Urine Bacteria RARE Urine Mucus 0 SEEN POC Glucose > 500 H* Discharge Plan Triage Chief Complaint: Med Refill ED Midlevel Provider: Aleida Cedeño ED Provider: Clay Calderon Dx/Rx/DC Orders Clinical Impression: Noncompliance with medication regimen, Elevated blood pressure reading with diagnosis of hypertension, Pseudohyponatremia, Controlled type 1 diabetes mellitus with hyperglycemia, with long-term current use of insulin Instructions: ED Diabetic Hyperglycemia Prescriptions: New insulin glargine U-300 conc [Toujeo Max U-300 SoloStar] 300 unit/mL (3 mL) insulin pen 30 unit subcut DAILY Qty: 6 0RF No Action Toujeo Max U-300 SoloStar 300 unit/mL (3 mL) insulin pen 36 unit SUBCUT DAILY Patient Comments: INJECT 36 UNITS INTO THE SKIN ONCE AT BEDTIME lisinopril 10 mg tablet 10 mg PO DAILY Qty: 30 0RF hydrochlorothiazide 12.5 mg tablet 12.5 mg PO DAILY Qty: 30 0RF Primary Care Provider: Care Physician,No Primary Referrals: Gage Pitts DO [Med Staff - Industrial Equipment Wire[employer]] - 1 Week Care Physician,No Primary [Primary Care Provider] - Activity Restrictions/Additional Instructions: You can either follow-up with Dr. Pitts or the Krystal Rocha at [phone], wherever you can follow-up with first. Print Language: Nigerian Disposition Disposition: Home, Self Care
[2024-09-08] MEDS: 0.9% Normal Saline (1000mL) 1,000 ML 999 ML IV (14:44)
[2024-09-08 14:57] LABS: Absolute Neutrophil Count 5.5 X10^3/uL (2.0-7.7); Basophil# 0.05 X10^3/uL; Basophil% 0.5 % (0-1); Eosinophil# 0.14 X10^3/uL; Eosinophils% 1.4 % (0-5); Hemoglobin 16.1 g/dL (13.0-16.5); Lymphocyte % 34.7 % (19-41); Mean Corp Hgb Conc 36.6 g/dL (32-36); Mean Corpuscular Hgb 32.8 pg (27.0-32.0); Mean Corpuscular Volume 89.6 fL (80-94); Mean Platelet Vol. 10.9 fl (6.2-12.0); Monocyte# 0.66 X10^3/uL; Monocyte% 6.7 % (0-10); NRBC Flagged by Analyzer 0 % (0-5); Neutrophil # 5.52 X10^3/uL (2.7-7.7); Neutrophil % 56.5 % (47-70); Platelet Count 228 K/mm3 (150-450); RBC Distribution Width CV 11.1 % (11.6-14.6); RBC Distribution Width SD 35.8 fl (35.1-43.9); Red Blood Count 4.91 M/mm3 (4.6-6.2); White Blood Count 9.8 K/mm3 (4.4-11.0)
[2024-09-08 15:10] LABS: Mucous, Urine 0 SEEN /hpf (<or=2+); Squamous Epithelial Cells - UA 0 SEEN /hpf (0-5); White Blood Cells 0 SEEN /hpf (0-5)
[2024-09-08 15:18] LABS: Color, Urine Yellow (Yellow); Glucose, Dipstick 1000 mg/dl (Normal); Ketone-Dipstick Negative (Negative); Leukocyte Esterase-Dipstick Negative /ul (Negative); Nitrite-Dipstick Negative (Negative); Occult Blood-Urine Negative /ul (Negative); Protein-Dipstick Negative (Negative); Specific Gravity, Urine 1.015 (1.002-1.030); Urine Bilirubin Dipstick Negative (Negative); Urine Clarity Clear (Clear); Urine Urobilinogen Normal (Normal)
[2024-09-08 15:20] LABS: Bedside Glucose > 500 mg/dL (74-106)
[2024-09-08 15:29] LABS: Bacteria RARE /hpf (None Seen); Red Blood Cells-Urine 0-5 SEEN /hpf (0-5)
[2024-09-08 15:55] LABS: Anion Gap 9 (5-15); BUN 18 mg/dL (7-18); BUN/Creat Ratio 18.6 RATIO (10-20); Calcium,Total 9.1 mg/dL (8.5-10.1); Chloride 96 mmol/L (98-107); Creatinine, Serum 0.97 mg/dL (0.70-1.30); EST Glomerular Filtration Rate 86 mL/min (>60); Est Glom Filt Rate - Afr Amer 104 mL/min (>60); Estimated Creatinine Clearance 88.24 ml/min; Glucose 572 mg/dL (74-106); Sodium Level 131 mmol/L (136-145)
[2024-09-08] MEDS: Insulin Lispro 100 UNIT/ML INSULN.PEN 10 UNIT SC (15:56)
[2024-09-08 16:20] VITALS: BP 147/85; PULSE 70; RESP 16; O2SAT 98
[2024-09-08 17:13] VITALS: BP 140/71; PULSE 77; RESP 16; TEMP 36.5; O2SAT 98
[2024-09-08 17:28] LABS: Bedside Glucose 323 mg/dL (74-106)
== END 2024-09-08 17:16 | disposition home or self-care (01) ==
PROVIDERS: Physician Assistant; Emergency Provider Emergency Medicine; Visit Provider Emergency Medicine
DX: E10.65 Type 1 diabetes mellitus with hyperglycemia (principal); Z79.4 Long term (current) use of insulin; T38.3X6A Underdosing of insulin and oral hypoglycemic [antidiabetic] drugs, initial encounter; Z91.148 Patient's other noncompliance with medication regimen for other reason; I10 Essential (primary) hypertension; F17.210 Nicotine dependence, cigarettes, uncomplicated; Z79.899 Other long term (current) drug therapy
CPT/HCPCS: 80048; 81001; 82962; 85025; 96360; 99283; A4216

== ENCOUNTER → 2024-10-01 | Outpatient (CLI) | payer BC, SELFPAY ==
[2024-10-01 17:57] LABS: Absolute Neutrophil Count 3.5 X10^3/uL (2.0-7.7); Basophil# 0.06 X10^3/uL; Basophil% 0.8 % (0-1); Eosinophil# 0.15 X10^3/uL; Hematocrit 46.6 % (40-54); Hemoglobin 16.4 g/dL (13.0-16.5); Lymphocyte % 45.9 % (19-41); Mean Corp Hgb Conc 35.2 g/dL (32-36); Mean Corpuscular Hgb 32.2 pg (27.0-32.0); Mean Corpuscular Volume 91.4 fL (80-94); Mean Platelet Vol. 10.3 fl (6.2-12.0); Monocyte# 0.42 X10^3/uL; Monocyte% 5.5 % (0-10); NRBC Flagged by Analyzer 0 % (0-5); Neutrophil # 3.49 X10^3/uL (2.7-7.7); Neutrophil % 45.7 % (47-70); Platelet Count 220 K/mm3 (150-450); RBC Distribution Width CV 11.4 % (11.6-14.6); RBC Distribution Width SD 38.2 fl (35.1-43.9); White Blood Count 7.6 K/mm3 (4.4-11.0)
[2024-10-01 18:47] LABS: ALB/GLOB Ratio 0.9 RATIO (0.9-2.4); AST(SGOT) 24 U/L (15-37); Alanine Aminotransfer ALT/SGPT 60 U/L (16-61); Albumin, Serum 3.7 g/dL (3.2-5.0); Alkaline Phosphatase 101 U/L (45-117); Anion Gap 5 (5-15); BUN 12 mg/dL (7-18); BUN/Creat Ratio 18.5 RATIO (10-20); Calcium,Total 9.6 mg/dL (8.5-10.1); Chloride 103 mmol/L (98-107); Creatinine, Serum 0.65 mg/dL (0.70-1.30); EST Glomerular Filtration Rate 135 mL/min (>60); Est Glom Filt Rate - Afr Amer 164 mL/min (>60); Globulin 4.1 g/dL (2.2-4.2); Glucose 227 mg/dL (74-106); Magnesium 2.1 mg/dL (1.6-2.6); Potassium 3.8 mmol/L (3.5-5.1); Protein, Total 7.8 g/dL (6.4-8.2); Sodium Level 135 mmol/L (136-145)
[2024-10-01 19:22] LABS: Microalbumin,Random Urine 58.8 mg/L (NO RANGE EST.)
== END | disposition home or self-care (01) ==
LOC: MTLAB 14:45
PROVIDERS: PCP Nurse Practitioner Family
DX: E11.9 Type 2 diabetes mellitus without complications (principal); R25.2 Cramp and spasm
CPT/HCPCS: 36415; 80053; 82043; 83735; 84443; 85025

== ENCOUNTER → 2025-01-17 | Outpatient (CLI) | payer BC, SELFPAY ==
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
== END | disposition home or self-care (01) ==
LOC: MTRAD 16:22
PROVIDERS: PCP Nurse Practitioner Family; Referring Provider Physician Assistant Surgical; Visit Provider Physician Assistant Surgical
DX: S29.9XXA Unspecified injury of thorax, initial encounter (principal); X58.XXXA Exposure to other specified factors, initial encounter
CPT/HCPCS: 71046

== ENCOUNTER → 2025-08-30 | Outpatient (CLI) | payer BC, SELFPAY ==
--- OUTSIDE RECORDS SUMMARY | 2025-08-30 12:17 | XMS RPT_ITS | CCD ---
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 non-operative and operative means of treating shoulder pain. Conservative options include but not limited to: 1. Rest and Activity Modification: Giving your shoulder time to heal by samaria (more content not included)... [facility] Shoulder min 2 Viewson 11-19 Shoulder min 2 Views [facility] Imaging Services [address] [place], [place] [id number] Shoulder min 2 Views MR#: [id number] Acct: [id number] Name: BENJY GUPTA V Rep #: [id number] : 1970 M 54 From: Dudley Stevens i DO PCP: SUZETTE Wyatt Status: DEP AMB Study: Shoulder min 2 Views Date of Exam: 11/19/24 Exam# [id number] Ordering Dr: Nelson Perez MD PROCEDURE: Right shoulder radiographs, four views REASON FOR EXAM: Pain TECHNIQUE: Four views of the right shoulder were obtained. COMPARISON: None. FINDINGS: Four views of the right shoulder were obtained. Bones are mildly osteopenic. Included right lung is clear. No acute fracture or dislocation of the right shoulder. Mild degenerative changes of the right acromioclavicular joint. The subacromial space is maintained. Raomsziq-dw-kgqneu degenerative change of the right hip glenohumeral joint. A 2.2 cm linear metallic density projects near the anterior margin of the neck of the scapula on the scapular Y-view. A 2nd curvilinear metallic density measuring 2.9 cm projects over the right axillary soft tissues. RAD/Shoulder min 2 Views IMPRESSION: Osteopenia. No acute bony abnormality of the right shoulder. Mild degenerative change of the right acromioclavicular joint and rgmuixxt-vz-boteta degenerative change of the right glenohumeral joint. 2 metallic densities project over the right shoulder region as described above, measuring up to 2.9 cm. These could relate to prior surgical procedures or prior trauma. The largest metallic density projects over the right axillary soft tissues, curvilinear in shape, measuring up to 2.9 cm. Reading [facility] CC: [employer]UMENT [employer] SUPERVISOR-C Gage Sanchez; Dr. Nelson Perez MD Mobile Heavy Equipment Operator: Signed [facility] Shoulder min 2 Views [facility] Imaging Services [address] [place] [id number] Shoulder min 2 Views MR#: [id number] Acct: [id number] Name: BENJY GUPTA V Rep #: [id number] : 1970 M 54 From: Dudley Stevens i DO PCP: SUZETTE Wyatt Status: DEP AMB Study: Shoulder min 2 Views Date of Exam: 11/19/24 Exam# [id number] Ordering Dr: Nelson Perez MD PROCEDURE: Left shoulder radiographs, two views REASON FOR EXAM: Pain TECHNIQUE: Four views of the left shoulder were obtained. COMPARISON: None. FINDINGS: Four views of the left shoulder were obtained. Included lungs are clear. Bones are mildly osteopenic. No acute fracture or dislocation of either shoulder. Minimal degenerative changes of the left acromioclavicular and glenohumeral joints. No AC joint widening. The subacromial space is maintained. RAD/Shoulder min 2 Views IMPRESSION: Mild osteopenia. No acute bony abnormality of the left shoulder. Minimal degenerative changes as above. Reading [facility] CC: SUZETTE Sanchez; Dr. Nelson Perez MD Mobile Heavy Equipment Operator: Signed [facility] Absolute neutrophil countOrd ered By: [facility] on 10-01-2024 Neutrophils (Bld) [#/Vol] 3.5 10*3/uL 2.0-7.7 [facility] Albumin to globulin ratioOrd ered By: [facility] on 10-01-2024 Albumin/Globulin [Mass ratio] 0.9 {ratio} 0.9-2.4 [facility] Basophil percentageOrdered B y: [facility] on 10-01-2024 Basophils/100 WBC (Bld) 0.8 % 0-1 [facility] Bilirubin, totalOrdered By: [facility] on 10-01-2024 Bilirubin [Mass/Vol] 0.70 mg/dL 0.20-1.00 [facility] Comment on above: For patients on eltr ombopag therapy, use of Dimension [place] TBIL is not recommended. Blood urea nitrogen (BUN)/cr eatinine ratioOrdered By: [facility] on 10-01-2024 Urea nitrogen/Creatinine [Mass ratio] 18.5 mg/mg 10-20 [facility] CBC W/Diff, Automatedon Absolute Lymph 3.50 X10 3/uL Normal 0.83-4.51 [facility] Comment on above: Performed By: #### L 100.0100, L501.9520, L500.4050, L501.5200, L502.0500 #### [facility] [address] [place], [address] Absolute Neut 3.5 X10 3/uL Normal 2.0-7.7 [facility] Comment on above: Performed By: #### L 100.0100, L501.9520, L500.4050, L501.5200, L502.0500 #### [facility] [address] [place], [address] Basophils/100 WBC (Bld) 0.8 % Normal 0-1 [facility] Comment on above: Performed By: #### L 100.0100, L501.9520, L500.4050, L501.5200, L502.0500 #### [facility] [address] [place], [address] Eosinophils/100 WBC (Bld) 2.0 % Normal 0-5 [facility] Comment on above: Performed By: #### L 100.0100, L501.9520, L500.4050, L501.5200, L502.0500 #### [facility] [address] [place], [address] Erythrocyte distribution width (RBC) [Ratio] 11.4 % Low 11.6-14.6 [facility] Comment on above: Performed By: #### L 100.0100, L501.9520, L500.4050, L501.5200, L502.0500 #### [facility] [address] [place], [address] Hematocrit (Bld) [Volume fraction] 46.6 % Normal 40-54 [facility] Comment on above: Performed By: #### L 100.0100, L501.9520, L500.4050, L501.5200, L502.0500 #### [facility] [address] [place], [address] Hemoglobin (Bld) [Mass/Vol] 16.4 g/dL Normal 13.0-16.5 [facility] Comment on above: Performed By: #### L 100.0100, L501.9520, L500.4050, L501.5200, L502.0500 #### [facility] [address] [place], [address] IG% 0.100 Normal 0.0-0.9 [facility] Comment on above: Result Comment: IG% - Immature Granulocytes (promyelocytes, myelocytes and metamyelocytes) > 1% indicates that a LEFT SHIFT is Present. Performed By: #### L 100.0100, L501.9520, L500.4050, L501.5200, L502.0500 #### [facility] [address] [place], [address] Lymphocytes/100 WBC (Bld) 45.9 % High 19-41 [facility] Comment on above: Performed By: #### L 100.0100, L501.9520, L500.4050, L501.5200, L502.0500 #### [facility] [address] [place], [address] MCH (RBC) [Entitic mass] 32.2 pg High 27.0-32.0 [facility] Comment on above: Performed By: #### L 100.0100, L501.9520, L500.4050, L501.5200, L502.0500 #### [facility] [address] [place], [address] MCHC (RBC) [Mass/Vol] 35.2 g/dL Normal 32-36 [facility] Comment on above: Performed By: #### L 100.0100, L501.9520, L500.4050, L501.5200, L502.0500 #### [facility] [address] [place], [address] MCV (RBC) [Entitic vol] 91.4 fL Normal 80-94 [facility] Comment on above: Performed By: #### L 100.0100, L501.9520, L500.4050, L501.5200, L502.0500 #### [facility] [address] [place], [address] Monocytes/100 WBC (Bld) 5.5 % Normal 0-10 [facility] Comment on above: Performed By: #### L 100.0100, L501.9520, L500.4050, L501.5200, L502.0500 #### [facility] [address] [place], [address] Neutrophils/100 WBC (Bld) 45.7 % Low 47-70 [facility] Comment on above: Performed By: #### L 100.0100, L501.9520, L500.4050, L501.5200, L502.0500 #### [facility] [address] [place], [address] Nucleated RBC (Bld) [#/Vol] 0 10*3/uL Normal 0-5 [facility] Comment on above: Performed By: #### L 100.0100, L501.9520, L500.4050, L501.5200, L502.0500 #### [facility] [address] [place], [address] Platelet mean volume (Bld) [Entitic vol] 10.3 fL Normal 6.2-12.0 [facility] Comment on above: Performed By: #### L 100.0100, L501.9520, L500.4050, L501.5200, L502.0500 #### [facility] [address] [place], [address] Platelets (Bld) [#/Vol] 220 10*3/uL Normal 150-450 [facility] Comment on above: Performed By: #### L 100.0100, L501.9520, L500.4050, L501.5200, L502.0500 #### [facility] [address] [place], [address] RBC (Bld) [#/Vol] 5.10 10*6/uL Normal 4.6-6.[address] [facility] Comment on above: Performed By: #### L 100.0100, L501.9520, L500.4050, L501.5200, L502.0500 #### [facility] [address] [place], [address] RDW SD 38.2 fl Normal 35.1-43.9 [facility] Comment on above: Performed By: #### L 100.0100, L501.9520, L500.4050, L501.5200, L502.0500 #### [facility] [address] [place], [address] WBC (Bld) [#/Vol] 7.6 10*3/uL Normal 4.4-11.0 [facility] Comment on above: Performed By: #### L 100.0100, L501.9520, L500.4050, L501.5200, L502.0500 #### [facility] [address] [place], [address] Carbon dioxide measurementOr dered By: Prabhjotbulun Beam on 10-01-2024 CO2 [Moles/Vol] 26.0 mmol/L 21.0-32.0 [facility] Chloride measurementOrdered By: Zebulun Beam on 10-01-2024 Chloride [Moles/Vol] 103 mmol/L 98-107 [facility] Comprehensive Metabolic Prof ilon 10-01-2024 Albumin [Mass/Vol] 3.7 g/dL Normal 3.2-5.0 [facility] Comment on above: Performed By: #### L 100.0100, L501.9520, L500.4050, L501.5200, L502.0500 ####[facility] [address] [place], [address] Albumin/Globulin [Mass ratio] 0.9 {ratio} Normal 0.9-2.4 [facility] Comment on above: Performed By: #### L 100.0100, L501.9520, L500.4050, L501.5200, L502.0500 ####[facility] [address] [place], [address] ALK P 101 U/L Normal 45-117 [facility] Comment on above: Performed By: #### L 100.0100, L501.9520, L500.4050, L501.5200, L502.0500 ####[facility] [address] [place], [address] ALT [Catalytic activity/Vol] 60 U/L Normal 16-61 [facility] Comment on above: Performed By: #### L 100.0100, L501.9520, L500.4050, L501.5200, L502.0500 ####[facility] [address] [place], [address] AST [Catalytic activity/Vol] 24 U/L Normal 15-37 [facility] Comment on above: Performed By: #### L 100.0100, L501.9520, L500.4050, L501.5200, L502.0500 ####[facility] [address] [place], [address] Bilirubin [Mass/Vol] 0.70 mg/dL Normal 0.20-1.00 [facility] Comment on above: Result Comment: For patients on eltrombopag therapy, use of Dimension [place] TBIL is not recommended. Performed By: #### L 100.0100, L501.9520, L500.4050, L501.5200, L502.0500 ####[facility] [address] [place], [address] BUN/CRE 18.5 RATIO Normal 10-20 [facility] Comment on above: Performed By: #### L 100.0100, L501.9520, L500.4050, L501.5200, L502.0500 ####[facility] [address] [place], [address] CA,Total 9.6 mg/dL Normal 8.5-10.1 [facility] Comment on above: Performed By: #### L 100.0100, L501.9520, L500.4050, L501.5200, L502.0500 ####[facility] [address] [place], [address] Chloride [Moles/Vol] 103 mmol/L Normal 98-107 [facility] Comment on above: Performed By: #### L 100.0100, L501.9520, L500.4050, L501.5200, L502.0500 ####[facility] [address] [place], [address] CO2 [Moles/Vol] 26.0 mmol/L Normal 21.0-32.0 [facility] Comment on above: Performed By: #### L 100.0100, L501.9520, L500.4050, L501.5200, L502.0500 ####[facility] [address] [place], [address] Creatinine [Mass/Vol] 0.65 mg/dL Low 0.70-1.30 [facility] Comment on above: Result Comment: The validity of the calculated GFR GFRAA in patients over 70 years has not been determined. Clinical correlation is essential. Performed By: #### L 100.0100, L501.9520, L500.4050, L501.5200, L502.0500 ####[facility] [address] [place], [address] EST GFR - AA 164 mL/min Normal >60 [facility] Comment on above: Result Comment: Afri can [place] GFR Calc Performed By: #### L 100.0100, L501.9520, L500.4050, L501.5200, L502.0500 ####[facility] [address] [place], [address] GAP 5 Normal 5-15 [facility] Comment on above: Performed By: #### L 100.0100, L501.9520, L500.4050, L501.5200, L502.0500 ####[facility] [address] [place], [address] GFR/1.73 sq M.predicted among non-blacks MDRD (S/P/Bld) [Vol rate/Area] 135 mL/min/{1.73_m2} Normal >60 [facility] Comment on above: Result Comment: Non- GFR Calc Performed By: #### L 100.0100, L501.9520, L500.4050, L501.5200, L502.0500 ####[facility] [address] [place], [address] Globulin (S) [Mass/Vol] 4.1 g/dL Normal 2.2-4.2 [facility] Comment on above: Performed By: #### L 100.0100, L501.9520, L500.4050, L501.5200, L502.0500 ####[facility] [address] [place], [address] Glucose [Mass/Vol] 227 mg/dL High 74-106 [facility] Comment on above: Result Comment: Gluc ose result greater than or equal to 200 mg/dL suggests DIABETES MELLITUS per A.D.A. criteria. Performed By: #### L 100.0100, L501.9520, L500.4050, L501.5200, L502.0500 ####[facility] [address] [place], [address] Potassium [Moles/Vol] 3.8 mmol/L Normal 3.5-5.1 [facility] Comment on above: Performed By: #### L 100.0100, L501.9520, L500.4050, L501.5200, L502.0500 ####[facility] [address] [place], [address] Sodium [Moles/Vol] 135 mmol/L Low 136-145 [facility] Comment on above: Performed By: #### L 100.0100, L501.9520, L500.4050, L501.5200, L502.0500 ####[facility] [address] [place], [address] T PROT 7.8 g/dL Normal 6.4-8.2 [facility] Comment on above: Performed By: #### L 100.0100, L501.9520, L500.4050, L501.5200, L502.0500 ####[facility] [address] [place], [address] Urea nitrogen [Mass/Vol] 12 mg/dL Normal 7-18 [facility] Comment on above: Performed By: #### L 100.0100, L501.9520, L500.4050, L501.5200, L502.0500 ####[facility] [address] [place], [address] Eosinophil percentageOrdered By: Zebulun Beam on 10-01-2024 Eosinophils/100 WBC (Bld) 2.0 % 0-5 [facility] Erythrocyte distribution wid th (RBC) [Ratio]Ordered By: Zebulun Beam on 10-01-2024 Erythrocyte distribution width (RBC) [Entitic vol] 38.2 fL 35.1-43.9 [facility] Erythrocyte distribution wid th ratioOrdered By: Zebulun Beam on 10-01-2024 Erythrocyte distribution width (RBC) [Ratio] 11.4 % Low 11.6-14.6 [facility] Estimated glomerular filtrat ion rate (GFR) AmericanOrdered By: Colt Abad on 10-01-2024 Estimated GFR (MDRD) Amer 164 mL/min >60 [facility] Comment on above: GFR Calc Glomerular filtration rate ( GFR) estimationOrdered By: Colt Abad on 10-01-2024 Estimated GFR (MDRD) Non-Af Amer 135 mL/min >60 [facility] Comment on above: Non- GFR Calc Glucose measurementOrdered B y: Colt Abad on 10-01-2024 Glucose [Mass/Vol] 227 mg/dL High 74-106 [facility] Comment on above: Glucose result great er than or equal to 200 mg/dLsuggests DIABETES MELLITUS per A.D.A. criteria. Hematocrit Auto (Bld) [Volum e fraction]Ordered By: Colt Abad on 10-01-2024 Hematocrit (Bld) [Volume fraction] 46.6 % 40-54 [facility] Hemoglobin measurementOrdere d By: Colt Abad on 10-01-2024 Hemoglobin (Bld) [Mass/Vol] 16.4 g/dL 13.0-16.5 [facility] Immature granulocytes/100 WB C Auto (Bld)Ordered By: khushbu Abad on 10-01-2024 Immature granulocytes/100 WBC (Bld) 0.100 % 0.0-0.9 [facility] Comment on above: IG% - Immature Granu locytes (promyelocytes, myelocytes and metamyelocytes) > 1% indicates that a LEFT SHIFT is Present. Laboratory - Chemistry and C hemistry - challengeOrdered By: Colt Abad on 10-01-2024 AST [Catalytic activity/Vol] 24 U/L 15-37 [facility] Lymphocytes Auto (Unsp spec) [#/Vol]Or[facility] 10-[facility]-2024 Lymphocytes (Bld) [#/Vol] 3.50 10*3/uL 0.83-4.51 [facility] Lymphocytes/100 WBC Auto (Un sp spec)Ordered By: Colt Abad on 10-01-2024 Lymphocytes/100 WBC (Bld) 45.9 % High 19-41 [facility] MCV (mean corpuscular volume ) determinationOrdered By: Zebulun Beam on 10-01-2024 MCV (RBC) [Entitic vol] 91.4 fL 80-94 [facility] Magnesiumon 10-01-2024 Magnesium [Mass/Vol] 2.1 mg/dL Normal 1.6-2.6 [facility] Comment on above: Performed By: #### L 100.0100, L501.9520, L500.4050, L501.5200, L502.0500 ####[facility] [address] [place], [address] Magnesium measurementOrdered By: Zebulun Beam on 10-01-2024 Magnesium [Mass/Vol] 2.1 mg/dL 1.6-2.6 [facility] Mean corpuscular hemoglobin (MCH) determinationOrdered By: Zebulun Beam on 10-01-2024 MCH (RBC) [Entitic mass] 32.2 pg High 27.0-32.0 [facility] Mean corpuscular hemoglobin concentration (MCHC) determinationOrdered By: Zebulun Beam on 10-01-2024 MCHC (RBC) [Mass/Vol] 35.2 g/dL 32-36 [facility] Mean platelet volume determi nationOrdered By: Zebulun Beam on 10-01-2024 Platelet mean volume (Bld) [Entitic vol] 10.3 fL 6.2-12.0 [facility] Microalbumin,Random Urineon 10-01-2024 MICROALBUMIN,UR 58.8 mg/L Normal NO RANGE EST. [facility] Comment on above: Performed By: #### L 100.0100, L501.9520, L500.4050, L501.5200, L502.0500 ####[facility] [address] [place], [address] Monocyte percentageOrdered B y: Zebulun Beam on 10-01-2024 Monocytes/100 WBC (Bld) 5.5 % 0-10 [facility] Neutrophil percentageOrdered By: Colt Beam on 10-01-2024 Neutrophils/100 WBC (Bld) 45.7 % Low 47-70 [facility] Nucleated red blood cell per centageOrdered By: Colt Beam on 10-01-2024 Nucleated RBC/100 WBC (Bld) [Ratio] 0 % 0-5 [facility] Platelet countOrdered By: Prabhjot Abad on 10-01-2024 Platelets (Bld) [#/Vol] 220 10*3/uL 150-450 [facility] Potassium measurementOrdered By: Colt Beam on 10-01-2024 Potassium [Moles/Vol] 3.8 mmol/L 3.5-5.1 [facility] RBC Auto (Bld) [#/Vol]Ordere d By: Colt Beam on 10-01-2024 RBC (Bld) [#/Vol] 5.10 10*6/uL 4.6-6.[address] [facility] Random urine microalbumin me asurementOrdered By: Colt Abad on 10-01-2024 Urine Random Microalbumin 58.8 mg/L NO RANGE EST. [facility] Serum anion gap measurementO rdered By: Colt Abad on 10-01-2024 Anion gap [Moles/Vol] 5 mmol/L 5-15 [facility] Serum globulin measurementOr dered By: Colt Abad on 10-01-2024 Globulin (S) [Mass/Vol] 4.1 g/dL 2.2-4.2 [facility] Serum or plasma alanine coughlin otransferase (ALT) measurementOrdered By: Nattyluarti Beam on 10-01-2024 ALT [Catalytic activity/Vol] 60 U/L 16-61 [facility] Serum or plasma albumin michelle urement (mass/volume)Ordered By: Colt Beam on 10-01-2024 Albumin [Mass/Vol] 3.7 g/dL 3.2-5.0 [facility] Serum or plasma alkaline sujatha sphatase measurementOrdered By: Colt Beam on 10-01-2024 ALP [Catalytic activity/Vol] 101 U/L 45-117 [facility] Serum or plasma calcium michelle urement (mass/volume)Ordered By: Colt Abad on 10-01-2024 Calcium [Mass/Vol] 9.6 mg/dL 8.5-10.1 [facility] Serum or plasma creatinine m easurement (mass/volume)Ordered By: Colt Abad on 10-01-2024 Creatinine [Mass/Vol] 0.65 mg/dL Low 0.70-1.30 [facility] Comment on above: The validity of the calculated GFR & GFRAA in patients over 70 years has not been determined. Clinical correlation is essential. Serum or plasma urea nitroge n measurement (mass/volume)Ordered By: Colt Abad on 10-01-2024 Urea nitrogen [Mass/Vol] 12 mg/dL 7-18 [facility] Sodium levelOrdered By: Natty Abad on 10-01-2024 Sodium [Moles/Vol] 135 mmol/L Low 136-145 [facility] TSH QnOrdered By: Colt Gamez am on 10-01-2024 Thyroid Stimulating Hormone (TSH) 1.870 uIU/mL 0.358-3.740 [facility] Thyroid Stim Hormone (TSH)on 10-01-2024 TSH 1.870 uIU/mL Normal 0.358-3.740 [facility] Comment on above: Performed By: #### L 100.0100, L501.9520, L500.4050, L501.5200, L502.0500 ####[facility] [address] [place], [place], [id number] Total proteinOrdered By: Roberto Abad on 10-01-2024 Protein [Mass/Vol] 7.8 g/dL 6.4-8.2 [facility] White blood cell (WBC) count Ordered By: Colt Abad on 10-01-2024 WBC (Bld) [#/Vol] 7.6 10*3/uL 4.4-11.0 [facility] Basic Metabolic Profile (BMP )on 09-08-2024 BUN/CRE 18.6 RATIO Normal 10-20 [facility] Comment on above: Performed By: #### L 500.2500, L100.0100 ####[facility] [address] [place], [address] CA,Total 9.1 mg/dL Normal 8.5-10.1 [facility] Comment on above: Performed By: #### L 500.2500, L100.0100 ####[facility] [address] [place], [address] Chloride [Moles/Vol] 96 mmol/L Low 98-107 [facility] Comment on above: Performed By: #### L 500.2500, L100.0100 ####[facility] [address] [place], [address] CO2 [Moles/Vol] 26.0 mmol/L Normal 21.0-32.0 [facility] Comment on above: Performed By: #### L 500.2500, L100.0100 ####[facility] [address] [place], [address] Creatinine [Mass/Vol] 0.97 mg/dL Normal 0.70-1.30 [facility] Comment on above: Result Comment: The validity of the calculated GFR GFRAA in patients over 70 years has not been determined. Clinical correlation is essential. Performed By: #### L 500.2500, L100.0100 ####[facility] [address] [place], [address] ECRCL 88.24 ml/min Normal [facility] Comment on above: Performed By: #### L 500.2500, L100.0100 ####[facility] [address] [place], [address] EST GFR - AA 104 mL/min Normal >60 [facility] Comment on above: Result Comment: Afri can Gren[place] GFR Calc Performed By: #### L 500.2500, L100.0100 ####[facility] [address] [place], [address] GAP 9 Normal 5-15 [facility] Comment on above: Performed By: #### L 500.2500, L100.0100 ####[facility] [address] [place], [address] GFR/1.73 sq M.predicted among non-blacks MDRD (S/P/Bld) [Vol rate/Area] 86 mL/min/{1.73_m2} Normal >60 [facility] Comment on above: Result Comment: Non- GFR Calc Performed By: #### L 500.2500, L100.0100 ####[facility] [address] [place], [address] Glucose [Mass/Vol] 572 mg/dL Invalid Interpretation Code 74-106 [facility] Comment on above: Result Comment: Crit ical Result(s) Called at: 15:54:17 09/08/2024 by: DELILAH BHATIA. Results read back by Ariane Oquendo Glucose result greater than or equal to 200 mg/dL suggests DIABETES MELLITUS per A.D.A. criteria. Performed By: #### L 500.2500, L100.0100 ####[facility] [address] [place], [address] Potassium [Moles/Vol] 4.0 mmol/L Normal 3.5-5.1 [facility] Comment on above: Result Comment: Slig ht Hemolysis, Result may be falsely increased. Performed By: #### L 500.2500, L100.0100 ####[facility] [address] [place], [address] Sodium [Moles/Vol] 131 mmol/L Low 136-145 [facility] Comment on above: Performed By: #### L 500.2500, L100.0100 ####[facility] [address] [place], [address] Urea nitrogen [Mass/Vol] 18 mg/dL Normal 7-18 [facility] Comment on above: Performed By: #### L 500.2500, L100.0100 ####[facility] [address] [place], [address] Bedside Glucoseon 09-08-2024 FINGERSTICK GLU 323 mg/dL High 74-106 [facility] Comment on above: Result Comment: STACIE GEMENT OF PATIENT CARE PER NURSING PROTOCOL Performed By: #### L 501.080 #### [facility] [address] [place], [address] FINGERSTICK GLU > 500 Invalid Interpretation Code 74-106 [facility] Comment on above: Result Comment: STACIE GEMENT OF PATIENT CARE PER NURSING PROTOCOL Performed By: #### L 501.080 #### [facility] [address] [place], [address] CBC W/Diff, Automatedon 08-26 Absolute Lymph 3.40 X10 3/uL Normal 0.83-4.51 [facility] Comment on above: Performed By: #### L 500.2500, L100.0100 ####[facility] [address] [place], [address] Absolute Neut 5.5 X10 3/uL Normal 2.0-7.7 [facility] Comment on above: Performed By: #### L 500.2500, L100.0100 ####[facility] [address] [place], [address] Basophils/100 WBC (Bld) 0.5 % Normal 0-1 [facility] Comment on above: Performed By: #### L 500.2500, L100.0100 ####[facility] [address] [place], [address] Eosinophils/100 WBC (Bld) 1.4 % Normal 0-5 [facility] Comment on above: Performed By: #### L 500.2500, L100.0100 ####[facility] [address] [place], [address] Erythrocyte distribution width (RBC) [Ratio] 11.1 % Low 11.6-14.6 [facility] Comment on above: Performed By: #### L 500.2500, L100.0100 ####[facility] [address] [place], [address] Hematocrit (Bld) [Volume fraction] 44.0 % Normal 40-54 [facility] Comment on above: Performed By: #### L 500.2500, L100.0100 ####[facility] [address] [place], [address] Hemoglobin (Bld) [Mass/Vol] 16.1 g/dL Normal 13.0-16.5 [facility] Comment on above: Performed By: #### L 500.2500, L100.0100 ####[facility] [address] [place], [address] IG% 0.200 Normal 0.0-0.9 [facility] Comment on above: Result Comment: IG% - Immature Granulocytes (promyelocytes, myelocytes and metamyelocytes) > 1% indicates that a LEFT SHIFT is Present. Performed By: #### L 500.2500, L100.0100 ####[facility] [address] [place], [address] Lymphocytes/100 WBC (Bld) 34.7 % Normal 19-41 [facility] Comment on above: Performed By: #### L 500.2500, L100.0100 ####[facility] [address] [place], [address] MCH (RBC) [Entitic mass] 32.8 pg High 27.0-32.0 [facility] Comment on above: Performed By: #### L 500.2500, L100.0100 ####[facility] [address] [place], [address] MCHC (RBC) [Mass/Vol] 36.6 g/dL High 32-36 [facility] Comment on above: Performed By: #### L 500.2500, L100.0100 ####[facility] [address] [place], [address] MCV (RBC) [Entitic vol] 89.6 fL Normal 80-94 [facility] Comment on above: Performed By: #### L 500.2500, L100.0100 ####[facility] [address] [place], [address] Monocytes/100 WBC (Bld) 6.7 % Normal 0-10 [facility] Comment on above: Performed By: #### L 500.2500, L100.0100 ####[facility] [address] [place], [address] Neutrophils/100 WBC (Bld) 56.5 % Normal 47-70 [facility] Comment on above: Performed By: #### L 500.2500, L100.0100 ####[facility] [address] [place], [address] Nucleated RBC (Bld) [#/Vol] 0 10*3/uL Normal 0-5 [facility] Comment on above: Performed By: #### L 500.2500, L100.0100 ####[facility] [address] [place], [address] Platelet mean volume (Bld) [Entitic vol] 10.9 fL Normal 6.2-12.0 [facility] Comment on above: Performed By: #### L 500.2500, L100.0100 ####[facility] [address] [place], [address] Platelets (Bld) [#/Vol] 228 10*3/uL Normal 150-450 [facility] Comment on above: Performed By: #### L 500.2500, L100.0100 ####[facility] [address] [place], [address] RBC (Bld) [#/Vol] 4.91 10*6/uL Normal 4.6-6.[address] [facility] Comment on above: Performed By: #### L 500.2500, L100.0100 ####[facility] [address] [place], [address] RDW SD 35.8 fl Normal 35.1-43.9 [facility] Comment on above: Performed By: #### L 500.2500, L100.0100 ####[facility] [address] [place], [address] WBC (Bld) [#/Vol] 9.8 10*3/uL Normal 4.4-11.0 [facility] Comment on above: Performed By: #### L 500.2500, L100.0100 ####[facility] [address] [place], [address] Emergency Department Summary on 09-08-2024 Emergency Department Summary [facility] Medical Records Department [address] [place] [address] Emergency Department Summary 09/08/24 MR#: [id number] Acct: [id number] Name: BENJY GUPTA V Rep #: [id number] : 1970 53 From: Aleida GARCIA PCP: Care Physician,No Primary Status:DEP ER Location: ED HPI History of Present Illness Chief Complaint: Med Refill Narrative Narrative: Patient presenting today requesting to have his insulin refilled. He has been out of it for the past week and a half and does not currently have a PCP to get it refilled. He endorses polyuria and polydipsia. He has a history of diabetes and was previously on metformin but did not tolerate it well. He denies fevers, chills, nausea, and vomiting. [facility] Medical History Borderline hypertension Diabetes Home Medications ???Medication ???Instructions ???Recorded ???Last Taken ???Type hydrochlorothiazide 12.5 mg tablet 12.5 mg PO DAILY #30 tabs 02/28/23 Unknown Rx insulin glargine U-300 conc 300 36 unit subcut DAILY 02/28/23 Unknown History unit/mL (3 mL) subcutaneous pen (Toujeo Max U-300 SoloStar) lisinopril 10 mg tablet 10 mg PO DAILY #30 tabs 02/28/23 Unknown Rx insulin glargine U-300 conc 300 30 unit (0.1 mL) subcut DAILY #6 mL 09/08/24 Unknown Rx unit/mL (3 mL) subcutaneous pen (Toujeo Max U-300 SoloStar) Allergy/AdvReac Type Severity Reaction Status Date / Time No Known Allergies Allergy Verified 12/24/23 14:26 Social History household members: family Smoking Status: Current every day smoker tobacco type: cigarettes alcohol intake: current alcohol intake frequency: a few times a month substance use type: does not use ROS ROS ED Constitutional Constitutional ED: Denies chills or fever(s) Cardiovascular Cardiovascular: Denies chest pain Respiratory/Chest Respiratory/Chest: Denies dyspnea Gastrointestinal Gastrointestinal: Denies abdominal pain, nausea or vomiting Genitourinary Genitourinary ED: Reports urinary frequency; Denies dysuria or hematuria Musculoskeletal Musculoskeletal: Denies arthralgias or myalgias Integumentary Denies rash Neurologic Neurologic: Denies weakness EXAM Physical Exam Const Vital Signs: 09/08/24 14:06 09/08/24 14:20 09/08/24 16:20 Temperature 98 F Temperature Source Temporal Pulse Rate 86 69 70 Respiratory Rate 14 18 16 Blood Pressure 151/96 H 138/90 H 147/85 H Blood Pressure Mean 114 106 105 Pulse Ox 98 98 98 Oxygen Delivery Method Room Air Room Air Room Air 09/08/24 17:13 Temperature 97.7 F L Temperature Source Pulse Rate 77 Respiratory Rate 16 Blood Pressure 140/71 H Blood Pressure Mean 94 Pulse Ox 98 Oxygen Delivery Method Positive well nourished, well developed and no apparent distress General Appearance ED: well developed HEENT Reports normocephalic, head/scalp atraumatic and dry mucous membranes Mouth ED: Yes dry mucous membranes Mouth: dry mucous membranes Eyes PERRL and EOMs intact bilaterally Neck full ROM and supple Chest Wall inspection of chest normal Resp normal respiratory effort and clear to auscultation bilaterally Cardio regular rate and regular rhythm GI soft to palpation, non-tender, non-distended and no masses Back/Spine normal ROM and normal to inspection Extremity normal to inspection and full ROM Neuro oriented x3, CN's II-XII intact bilaterally, moves all extremities, no focal motor deficits and no sensory deficits noted Sensorium / Orientation: awake and alert Psych mental status grossly normal and thought process normal Skin no rashes or lesions noted and no wounds Physical Exam Const Vital Signs: 09/08/24 14:06 09/08/24 14:20 09/08/24 16:20 Temperature 98 F Temperature Source Temporal Pulse Rate 86 69 70 Respiratory Rate 14 18 16 Blood Pressure 151/96 H 138/90 H 147/85 H Blood Pressure Mean 114 106 105 Pulse Ox 98 98 98 Oxygen Delivery Method Room Air Room Air Room Air 09/08/24 17:13 Temperature 97.7 F L Temperature Source Pulse Rate 77 Respiratory Rate 16 Blood Pressure 140/71 H Blood Pressure Mean 94 Pulse Ox 98 Oxygen Delivery Method MDM MDM MDM Narrative Medical decision making narrative: Patient presenting today requesting to have his insulin refilled. He endorses polyuria and polydipsia. He asked for water several times during my exam and his mucous membranes are dry. Bedside glucose was checked and is 510. Labs will be obtained to rule out DKA and patient will be given a liter of IV fluids. His CBC is unremarkable, sodium 131, glucose 572, UA shows no keto (more content not included)... Normal [facility] Urinalysis, Completeon 09-08 BACTERIA RARE Normal None Seen [facility] Comment on above: Order Comment: SHYAM CTOR TO SPECIFY Performed By: #### L 400.0001 #### [facility] [address] [place], [place], [id number] RBC 0-5 SEEN Normal 0-5 [facility] Comment on above: Order Comment: SHYAM CTOR TO SPECIFY Performed By: #### L 400.0001 #### [facility] [address] [place], [address] EPI,SQUAMOUS 0 SEEN Normal 0-5 [facility] Comment on above: Order Comment: COLLE CTOR TO SPECIFY Performed By: #### L 400.0001 #### [facility] [address] [place], [address] Mucus Ql (Urine sed) 0 SEEN Normal [facility] Comment on above: Order Comment: COLLE CTOR TO SPECIFY Performed By: #### L 400.0001 #### [facility] [address] [place], [address] WBC 0 SEEN Normal 0-5 [facility] Comment on above: Order Comment: SHYAM CTOR TO SPECIFY Performed By: #### L 400.0001 #### [facility] [address] [place], [address] CNOVon 09-07-2024 CNOV Office Visit (UROLMD ) BENJY GUPTA ([id number]) 1970 M Date Time Provider Department 09/07/24 9:00 AM HERON LYONS UROLMPartha During your visit today, we recorded the following information about you: Weight Height 82.8 kg 1.702 m Heron Lyons MD 09/07/2024 9:23 AM Signed [facility] UROLOGY ESTABLISHED PATIENT CLINIC NOTE PATIENT INFO: Benjy Gupta PCP: No primary care provider on file. UROLOGY DIAGNOSES: 1. History of vasectomy - ICD9: V26.52, ICD10: Z98.52 (primary diagnosis) 2. Testicular pain, left - ICD9: 608.9, ICD10: N50.812 3. 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 History of vasectomy 09/30/2023 Did not get PVSA Having issues with erections Left testicle pain Constant +ED since as well PMHx/PSHx: see above, otherwise unchanged Rx: reviewed and unchanged ROS: see above, otherwise unchanged Labs: Imaging: None MEDICATIONS: Current Outpatient Medications Medication Sig acetaminophen (TYLENOL EXTRA STRENGTH) 500 mg tablet Take 500 mg by mouth every 8 hours as needed. albuterol HFA (PROVENTIL HFA, VENTOLIN HFA) 90 mcg/actuation inhaler insulin glargine U-300 conc (TOUJEO MAX) 300 unit/mL (3 mL) inpn Inject 26 Units subcutaneously. lisinopril (ZESTRIL) 10 mg tablet Take 1 tablet by mouth once daily. BD INSULIN PEN NEEDLE UF 31 gauge x 02/08 oxaprozin (DAYPRO) 600 mg tablet Take 2 tablets by mouth once daily for 7 days. predniSONE (DELTASONE) 5 mg tablet prednisone 20 mg a day for 5 days, then prednisone 10 mg a day for 5 days, then prednisone 5 mg a day for 20 days Tadalafil (CIALIS) 5 mg tablet Take 1 tablet by mouth once daily. diclofenac potassium (CATAFLAM) 50 mg tablet (Patient not taking: Reported on 09/07/2024) hydroCHLOROthiazide 12.5 mg tablet Take by mouth. (Patient not taking: Reported on 09/07/2024) No current facility-administered medications for this visit. PHYSICAL EXAM: Ht 170.2 cm (5' 7) Wt 82.8 kg (182 lb 8 oz) BMI 28.58 kg/m? Body mass index is 28.58 kg/m?. General: Well masculinized, well nourished male Psych: euthymic, NAD Neuro: AANDOx3 Inguinal: No lesions, adenopathy, or hernias Phallus: normal, circumcised, no lesions Meatus: orthotopic, patent, no discharge Scrotum: no lesions, normal rugae Testes: Descended, nontender, and no masses bilaterally DIAGNOSES: 1. History of vasectomy - ICD9: V26.52, ICD10: Z98.52 (primary diagnosis) 2. Testicular pain, left - ICD9: 608.9, ICD10: N50.812 3. 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 IMPRESSION/PLAN: Hx of Vasectomy 09/2023 Constant L testis pain, hyperreflexic cremaster Check CHA Start Daypro and Prednisone Can consider PFPT ED - Start Cialis 5mg daily RTO 3 mo Heron Lyons MD Allergies As of Date: 09/07/2024 (No Known Allergies) Date Reviewed: 09/07/2024 Reviewed by: Arlyn Cheng MA - Fully Assessed Reason for Visit: Follow Up [171] Cmt: post vasectomy issues Primary Visit Diagnosis:History of vasectomy [Z98.52] Other Visit Diagnoses:Testicular pain, left [N50.812] Impotence of organic origin [N52.9] Order(s):US SCROTUM AND CONTENTS [4982725] Order #: [id number] FUTURE US DOPPLER COMPLETE [[id number]] Order #: [id number] FUTURE oxaprozin (DAYPRO) 600 mg tabletTake 2 tablets by mouth once daily for 7 days.Disp: 14 tabletRfl: 0 predniSONE (DELTASONE) 5 mg tabletprednisone 20 mg a day for 5 days, then prednisone 10 mg a day for 5 days, then prednisone 5 mg a day for 20 daysDisp: 50 tabletRfl: 0 Tadalafil (CIALIS) 5 mg tabletTake 1 tablet by mouth once daily.Disp: 90 tabletRfl: 5 Prescriptions as of 09/07/2024 - acetaminophen (TYLENOL EXTRA STRENGTH) 500 mg tablet Take 500 mg by mouth every 8 hours as needed. - oxaprozin (DAYPRO) 600 mg tablet Take 2 tablets by mouth once daily for 7 days. - predniSONE (DELTASONE) 5 mg tablet prednisone 20 mg a day for 5 days, then prednisone 10 mg a day for 5 days, then prednisone 5 mg a day for 20 days - Tadalafil (CIALIS) 5 mg tablet Take 1 tablet by mouth once daily. - albuterol HFA (PROVENTIL HFA, VENTOLIN HFA) 90 mcg/actuation inhaler - diclofenac potassium (CATAFLAM) 50 mg tablet - hydroCHLOROthiazide 12.5 mg tablet Take by mouth. - insulin glargine U-300 conc (TOUJEO MAX) 300 unit/mL (3 mL) inpn Inject 26 Units subcutaneously. - lisinopril (ZESTRIL) 10 mg tablet Take 1 tablet by mouth once daily. - BD INSULIN PEN NEEDLE UF 31 gauge x 02/08 Problem List As Of Date: 09/07/2024 (None) Prescriptions ordered this encounter Disp Refills Start End OXAPROZIN 600 MG TABLET 14 t* 0 09/07/2024 09/14/2024 Route: ORAL Sig: Take 2 tablets by mouth once daily for 7 days. PREDNISONE 5 MG TABLET 50 t* 0 09/07/2024 Sig: prednisone 20 mg a day for 5 d (more content not included)... Normal [facility] CNOVon 09-30-2023 CNOV Office Visit (UROLMD ) BENJY GUPTA ([id number]) 1970 M Date Time Provider Department 09/30/23 10:30 AM HERON LYONS UROABNER During your visit today, we recorded the following information about you: Pulse Respiration Blood pressure Weight 77/minute 14/minute 152/96 86.2 kg Height 1.702 m Heron Lyons MD 09/30/2023 11:27 AM Signed Benjy Gupta [id number] 09/30/2023 UNIVERSAL PROTOCOL / SAFETY CHECKLIST Procedure to be Performed: vasectomy Sign In: A Moment of CARE was completed. Personnel directly involved with the procedure wore the appropriate PPE (Personal Protective Equipment). Patient/Surrogate Stated/Verified: PATIENT VERIFIED(optional for EMERGENT procedures): Patient name, Date of , Relevant allergies, and The intended procedure Time Out Communication: Intended patient and procedure match the source documents. Consent documented and matches the intended procedure. Sign Out: SIGN OUT (optional for EMERGENT procedures): All specimen containers correctly labeled. Heron Lyons MD HPI: 52 year old male reports for vasectomy. He again confirms he desires permanent sterilization and has no desire to father children in the future. Operation: Vasectomy Anatomic Site: Vas Deferens Approach: Percutaneous Device: None Qualifier: None PMHx/PSHx: see above, otherwise unchanged Rx: No scheduled NSAIDs or blood thinner for past 5 days. ROS: No new or inguinal complaints Labs: None Imaging: None PE: General: Well masculinized, well nourished male Psych: euthymic, NAD Neuro: AANDOx3 exam: see below. Procedure: Vasectomy Patient?s identity was confirmed, written informed consent was obtained, and the time out performed before the procedure was initiated The patient was placed in a supine position and the genitalia were prepped and draped in a sterile manner. Examination revealed no scrotal lesions, descended testicles bilaterally without masses and readily palpable vasa deferens. The right scrotal skin and cord structures was anesthetized with 5 cc of 2% lidocaine without epinephrine. A No-scapel technique was used to isolated and remove a small portion of the vas deferens. The vasal ends were secured with clips and hemostasis was ensured. The skin edges were closed with an absorbable suture. The procedure was repeated on the patient?s left side. The patient tolerated the procedure well. Postoperative care, limitations, and expectations were reviewed with the patient. He was again instructed to use an alternate form of control until he is notified that his postprocedure semen analysis reveals no sperm. Imp: S/p vasectomy P: 1) Semen Analysis in 3 months 2) post-procedure instructions given to pt with verbalization of understanding. MD Tyler Harrison Ma, Gerald A 09/30/2023 11:20 AM Signed HOME GOING/DISCHARGE INSTRUCTIONS FOR VASECTOMY PATIENTS Please call the following numbers with any questions or concerns: [place] Offices: #[phone], and also #[phone] [facility] patients: [phone] M-F 8am-5pm, after hours [phone] ACTIVITIES Avoid strenuous physical exercise and heavy lifting for 10 days (as in bearing down, squatting or heavy weight lifting) NO bouncing, bumping or jarring NO contact sports, no exercising, no golf, no vacations/trips NO swimming, bathing or engaging in sexual activity NO going out to dinner or shopping Avoid lifting children or pets for 7-[address] them on your lap Rest with your legs elevated in a reclining chair Avoid sexual stimulation for ten days. After this time, you may return to sexual activity. A METHOD OF CONTROL should be used until your semen analysis showed negative results for sperm x 2. It is normal to notice blood or a brown color in the semen during the first few weeks after the procedure. You may go back to work in 2-3 days PRECAUTIONS Follow the usual precautions against until the results of the semen analysis are known. If sperm are detected, it may be necessary to continue precautions until another sample is submitted at a later date. You will need to come back for Follow up appointment in the time advised by your Provider with a semen specimen in the cup provided. Make sure to continue precautions until negative specimens by provider. DIET Resume your previous diet MEDICATIONS Use Acetaminophen for mild pain or discomfort Avoid Aspirin or Aspirin-containing products for 5 days WOUND CARE Apply ice packs to the scrotal area over the underwear every 8 hours for the first 1-2 days for not more than 30 minutes at a time. Use a jock strap (scrotal support) for 10 days. A small amount of oozing of blood, tenderness, and mild swelling are expected and should subside in a few days. If a small amoun (more content not included)... Normal [facility] SURGICAL PATHOLOGYon CASE REPORT Normal [facility] Comment on above: Order Comment: Speci men Type: TISSUE SPECIMEN Ordering Facility: [facility] Address: [address] [place] [address] Result Comment: Surg [facility] Pathology Report Case: [id number] Authorizing Provider: Heron Lyons MD Collected: 09/30/2023 11:28 AM Ordering Location: Urology Received: 09/30/2023 03:58 PM Pathologist: Faustino Lopez MD Specimens: A) - VAS DEFERENS LEFT, 1 B) - VAS DEFERENS RIGHT, 1 Performed By: #### S #### [facility] CLIA [id number] [address] [facility] [place] [address] [place] CLINICAL HISTORY ENCOUNTER FOR VASECTOMY Normal [facility] Comment on above: Order Comment: Speci men Type: TISSUE SPECIMEN Ordering Facility: [facility] Address: [address] [place] [address] Performed By: #### S #### [facility] CLIA [id number] [address] [place] [address] [place] FINAL DIAGNOSIS Normal [facility] Comment on above: Order Comment: Speci men Type: TISSUE SPECIMEN Ordering Facility: [facility] Address: [address] [place] [address] Result Comment: A. V as deferens, left, vasectomy: - Complete cross-section of vas deferens. B. Vas deferens, right, vasectomy: - Complete cross-section of vas deferens. Performed By: #### S #### [facility] CLIA [id number] [address] [place] [address] [place] FINAL PERFORMING LAB Normal [facility] Comment on above: Order Comment: Speci men Type: TISSUE SPECIMEN Ordering Facility: [facility] Address: [address] [place] [address] Result Comment: Diag nostic interpretation performed at [facility], [address] [place] [address] CLIA# [id number] Toy Consultant: Clarence Schumacher M.D. Performed By: #### S #### [facility] CLIA [id number] [address] [place] [address] [place] GROSS DESCRIPTION Normal [facility] Comment on above: Order Comment: Speci men Type: TISSUE SPECIMEN Ordering Facility: [facility] Address: [address] [place] [address] Result Comment: A. V DEFERENS LEFT Received in formalin, labeled vas deferens left, 1 is a tubular segment of mills-pink tissue measuring 1.0 x 0.2 x 0.2 cm. A small lumen is grossly visible. The luminal aspects are inked blue. The specimen is entirely submitted, intact, for sectioning by histology, in cassette A1. B. VAS DEFERENS RIGHT Received in formalin, labeled vas deferens right, 1 is a tubular segment of mills-pink tissue measuring 0.8 x 0.2 x 0.2 cm. A small lumen is grossly visible. The luminal aspects are inked blue. The specimen is entirely submitted, intact, for sectioning by histology, in cassette B1. AKA October 03, 2023 10:16 AM Gross examination performed at [facility], [address] [place], [place] [address]., [place] [address] Performed By: #### S #### [facility] CLIA [id number] [address] [place] [address] [id number] Absolute lymphocyte countOrd ered By: Jayson Reyes on 07-23-2023 Lymphocytes Auto (Unsp spec) [#/Vol] 3.01 10*3/uL 0.83-4.51 [facility] Basophil percentageOrdered B y: Jayson Reyes on 07-23-2023 Basophil percentage 0 SEEN /hpf 0-5 [facility] Basophils/100 WBC (Bld) 0.6 % 0-1 [facility] Chloride [Moles/Vol] 96 mmol/L 98-107 [facility] Eosinophils/100 WBC (Bld) 2.9 % 0-5 [facility] Glucose [Mass/Vol] 535 mg/dL 74-106 [facility] Comment on above: Critical Result(s) C alled at: 01:18:08 07/23/2023 by: Isaias Connell. dragan KWON (RN) (ED) Results read back by same.Glucose result greater than or equal to 200 mg/dLsuggests DIABETES MELLITUS per A.D.A. criteria. Neutrophils (Bld) [#/Vol] 4.0 10*3/uL 2.0-7.7 [facility] Neutrophils/100 WBC (Bld) 51.6 % 47-70 [facility] Potassium [Moles/Vol] 5.0 mmol/L 3.5-5.1 [facility] Comment on above: Moderate Hemolysis, Result may be falsely increased. Sodium [Moles/Vol] 130 mmol/L 136-145 [facility] WBC (Bld) [#/Vol] 7.8 10*3/uL 4.4-11.0 [facility] Bilirubin Test strip Ql (U)O rdered By: Jayson Reyes on 07-23-2023 Bilirubin Ql (U) Negative Negative [facility] Blood erythrocytes count (nu mber/volume)Ordered By: Jayson Reyes on 07-23-2023 RBC (Bld) [#/Vol] 5.34 10*6/uL 4.6-6.[address] [facility] Blood hemoglobin measurement (mass/volume)Ordered By: Jayson Reyes on 07-23-2023 Hemoglobin (Bld) [Mass/Vol] 16.9 g/dL 13.0-16.5 [facility] Blood lymphocytes/100 leukoc ytesOrdered By: Jayson Reyes on 07-23-2023 Lymphocytes/100 WBC (Bld) 38.5 % 19-41 [facility] Blood monocytes/100 leukocyt esOrdered By: Jayson Reyes on 07-23-2023 Monocytes/100 WBC (Bld) 6.3 % 0-10 [facility] Blood platelet mean volumeOr dered By: Jayson Reyes on 07-23-2023 Platelet mean volume (Bld) [Entitic vol] 11.3 fL 6.2-12.0 [facility] Determination of erythrocyte mean corpuscular volume (MCV)Ordered By: Jayson Reyes on 07-23-2023 MCV (RBC) [Entitic vol] 91.0 fL 80-94 [facility] Glucose Glucometer (BldC) [M ass/Vol]Ordered By: Jayson Reyes on 07-23-2023 Glucose [Mass/Vol] 398 mg/dL 74-106 [facility] Comment on above: MANAGEMENT OF PATIEN T CARE PER NURSING PROTOCOL Hematocrit Auto (Bld) [Volum e fraction]Ordered By: Jayson Reyes on 07-23-2023 Hematocrit (Bld) [Volume fraction] 48.6 % 40-54 [facility] Ketones Test strip Ql (U)Ord ered By: Jayson Reyes on 07-23-2023 Ketones Ql (U) Negative Negative [facility] Laboratory - Chemistry and C hemistry - challengeOrdered By: Jayson Reyes on 07-23-2023 CO2 [Moles/Vol] 28.0 mmol/L 21.0-32.0 [facility] Urea nitrogen/Creatinine [Mass ratio] 14.4 mg/mg 10-20 [facility] Laboratory - Hematology and Cell countsOrdered By: Jayson Reyes on 07-23-2023 Erythrocyte distribution width (RBC) [Entitic vol] 36.0 fL 35.1-43.9 [facility] Erythrocyte distribution width (RBC) [Ratio] 10.7 % 11.6-14.6 [facility] Immature granulocytes/100 WBC (Bld) 0.100 % 0.0-0.9 [facility] Comment on above: IG% - Immature Granu locytes (promyelocytes, myelocytes and metamyelocytes) > 1% indicates that a LEFT SHIFT is Present. MCH (RBC) [Entitic mass] 31.6 pg 27.0-32.0 [facility] Nucleated RBC/100 WBC (Bld) [Ratio] 0 % 0-5 [facility] MCHC Auto (RBC) [Mass/Vol]Or dered By: Jayson Reyes on 07-23-2023 MCHC (RBC) [Mass/Vol] 34.8 g/dL 32-36 [facility] Mucus LM Ql (Urine sed)Order ed By: Jayson Reyes on 07-23-2023 Mucus Ql (Urine sed) 0 SEEN /hpf [facility] Nitrite Test strip Ql (U)Ord ered By: Jayson Reyes on 07-23-2023 Nitrite Ql (U) Negative Negative [facility] No Panel InformationOrdered By: Jayson Reyes on 07-23-2023 Estimated Creatinine Clearance Calc 71.13 ml/min [facility] Estimated GFR (MDRD) Amer 89 mL/min >60 [facility] Comment on above: GFR Calc Estimated GFR (MDRD) Non-Af Amer 73 mL/min >60 [facility] Comment on above: Non- GFR Calc Platelets bldOrdered By: Amaris Reyes on 07-23-2023 Platelets (Bld) [#/Vol] 181 10*3/uL 150-450 [facility] Protein Test strip Ql (U)Ord ered By: Jayson Reyes on 07-23-2023 Protein Ql (U) Negative Negative [facility] Serum or plasma calcium michelle urement (mass/volume)Ordered By: Jayson Reyes on 07-23-2023 Calcium [Mass/Vol] 9.7 mg/dL 8.5-10.1 [facility] Serum or plasma creatinine m easurement (mass/volume)Ordered By: Jayson Reyes on 07-23-2023 Creatinine [Mass/Vol] 1.11 mg/dL 0.70-1.30 [facility] Comment on above: The validity of the calculated GFR & GFRAA in patients over 70 years has not been determined. Clinical correlation is essential. Serum or plasma urea nitroge n measurement (mass/volume)Ordered By: Jayson Reyes on 07-23-2023 Urea nitrogen [Mass/Vol] 16 mg/dL 7-18 [facility] Squamous epithelial cells de tection in urine sediment by light microscopyOrdered By: Jayson Reyes on 07-23-2023 Epithelial cells.squamous LM Ql (Urine sed) 0 SEEN /hpf 0-5 [facility] Thin prep Papanicolaou smear with manual screeningOrdered By: Jayson Reyes on 07-23-2023 Thin prep Papanicolaou smear with manual screening 6 5-15 [facility] Urine blood detectionOrdered By: Jayson Reyes on 07-23-2023 RBC Ql (U) Negative Negative [facility] RBC Ql (U) 0 SEEN /hpf 0-5 [facility] Urine clarityOrdered By: Amaris Reyes on 07-23-2023 Clarity (U) Clear Clear [facility] Urine color determinationOrd ered By: Jayson Reyes on 07-23-2023 Color (U) Yellow Yellow [facility] Urine glucose detectionOrder ed By: Jayson Reyes on 07-23-2023 Glucose Ql (U) 1000 mg/dl Normal [facility] Urine leukocyte esterase det ection by dipstickOrdered By: Jayson Reyes on 07-23-2023 Leukocyte esterase Test strip Ql (U) Negative Negative [facility] Urine pHOrdered By: Jayson Reyes on 07-23-2023 pH (U) 6.0 [pH] 5.0 - 8.0 [facility] Urine sediment bacteria coun t by microscopy (number/high power field)Ordered By: Jayson Reyes on 07-23-2023 Bacteria LM.HPF (Urine sed) [#/Area] 0 /[HPF] None Seen [facility] Urine specific gravity measu rementOrdered By: Jayson Reyes on 07-23-2023 Specific gravity (U) [Rel density] 1.015 1.002-1.030 [facility] Urobilinogen Auto test strip Ql (U)Ordered By: Jayson Reyes on 07-23-2023 Urobilinogen Ql (U) Normal mg/dl Normal [facility] Basophil percentageOrdered B y: Dr. Calderon on 02-28-2023 Basophil percentage 0 SEEN /hpf 0-5 [facility] Bilirubin Test strip Ql (U)O rdered By: Dr. Calderon on 02-28-2023 Bilirubin Ql (U) Negative Negative [facility] Glucose Glucometer (BldC) [M ass/Vol]Ordered By: Dr. Calderon on 02-28-2023 Glucose [Mass/Vol] 194 mg/dL 74-106 [facility] Comment on above: MANAGEMENT OF PATIEN T CARE PER NURSING PROTOCOL Ketones Test strip Ql (U)Ord ered By: Dr. Calderon on 02-28-2023 Ketones Ql (U) Negative Negative [facility] Mucus LM Ql (Urine sed)Order ed By: Dr. Calderon on 02-28-2023 Mucus Ql (Urine sed) 0 SEEN /hpf [facility] Nitrite Test strip Ql (U)Ord ered By: Dr. Calderon on 02-28-2023 Nitrite Ql (U) Negative Negative [facility] Protein Test strip Ql (U)Ord ered By: Dr. Calderon on 02-28-2023 Protein Ql (U) Negative Negative [facility] Squamous epithelial cells de tection in urine sediment by light microscopyOrdered By: Dr. Calderon on 02-28-2023 Epithelial cells.squamous LM Ql (Urine sed) 0 SEEN /hpf 0-5 [facility] Urine blood detectionOrdered By: Dr. Calderon on 02-28-2023 RBC Ql (U) Negative Negative [facility] RBC Ql (U) 0 SEEN /hpf 0-5 [facility] Urine clarityOrdered By: Dr. Calderon on 02-28-2023 Clarity (U) Clear Clear [facility] Urine color determinationOrd ered By: Dr. Calderon on 02-28-2023 Color (U) Yellow Yellow [facility] Urine glucose detectionOrder ed By: Dr. Calderon on 02-28-2023 Glucose Ql (U) 100 mg/dl Normal [facility] Urine leukocyte esterase det ection by dipstickOrdered By: Dr. Calderon on 02-28-2023 Leukocyte esterase Test strip Ql (U) Negative Negative [facility] Urine pHOrdered By: Dr. Ten pope on 02-28-2023 pH (U) 7.0 [pH] 5.0 - 8.0 [facility] Urine sediment bacteria coun t by microscopy (number/high power field)Ordered By: Dr. Calderon on 02-28-2023 Bacteria LM.HPF (Urine sed) [#/Area] 0 /[HPF] None Seen [facility] Urine specific gravity measu rementOrdered By: Dr. Calderon on 02-28-2023 Specific gravity (U) [Rel density] 1.005 1.002-1.030 [facility] Urobilinogen Auto test strip Ql (U)Ordered By: Dr. Calderon on 02-28-2023 Urobilinogen Ql (U) Normal mg/dl Normal [facility] Absolute lymphocyte countOrd ered By: Dr. Calderon on 02-27-2023 Lymphocytes Auto (Unsp spec) [#/Vol] 2.66 10*3/uL 0.83-4.51 [facility] Basophil percentageOrdered B y: Dr. Calderon on 02-27-2023 Basophils/100 WBC (Bld) 0.9 % 0-1 [facility] Chloride [Moles/Vol] 104 mmol/L 98-107 [facility] Eosinophils/100 WBC (Bld) 5.3 % 0-5 [facility] Glucose [Mass/Vol] 389 mg/dL 74-106 [facility] Comment on above: Glucose result great er than or equal to 200 mg/dLsuggests DIABETES MELLITUS per A.D.A. criteria. Neutrophils (Bld) [#/Vol] 2.9 10*3/uL 2.0-7.7 [facility] Neutrophils/100 WBC (Bld) 44.9 % 47-70 [facility] Potassium [Moles/Vol] 4.4 mmol/L 3.5-5.1 [facility] Sodium [Moles/Vol] 135 mmol/L 136-145 [facility] WBC (Bld) [#/Vol] 6.6 10*3/uL 4.4-11.0 [facility] Blood erythrocytes count (nu mber/volume)Ordered By: Dr. Calderon on 02-27-2023 RBC (Bld) [#/Vol] 4.93 10*6/uL 4.6-6.[address] [facility] Blood hemoglobin measurement (mass/volume)Ordered By: Dr. Calderon on 02-27-2023 Hemoglobin (Bld) [Mass/Vol] 15.8 g/dL 13.0-16.5 [facility] Blood lymphocytes/100 leukoc ytesOrdered By: Dr. Calderon on 02-27-2023 Lymphocytes/100 WBC (Bld) 40.5 % 19-41 [facility] Blood monocytes/100 leukocyt esOrdered By: Dr. Calderon on 02-27-2023 Monocytes/100 WBC (Bld) 7.2 % 0-10 [facility] Blood platelet mean volumeOr dered By: Dr. Calderon on 02-27-2023 Platelet mean volume (Bld) [Entitic vol] 11.2 fL 6.2-12.0 [facility] Determination of erythrocyte mean corpuscular volume (MCV)Ordered By: Dr. Calderon on 02-27-2023 MCV (RBC) [Entitic vol] 95.3 fL 80-94 [facility] Hematocrit Auto (Bld) [Volum e fraction]Ordered By: Dr. Calderon on 02-27-2023 Hematocrit (Bld) [Volume fraction] 47.0 % 40-54 [facility] - Chemistry and C hemistry - challengeOrdered By: Dr. Calderon on 02-27-2023 CO2 [Moles/Vol] 24.0 mmol/L 21.0-32.0 [facility] Urea nitrogen/Creatinine [Mass ratio] 12.4 mg/mg 10-20 [facility] - Hematology and Cell countsOrdered By: Dr. Calderon on 02-27-2023 Erythrocyte distribution width (RBC) [Entitic vol] 39.8 fL 35.1-43.9 [facility] Erythrocyte distribution width (RBC) [Ratio] 11.3 % 11.6-14.6 [facility] Immature granulocytes/100 WBC (Bld) 1.200 % 0.0-0.9 [facility] Comment on above: IG% - Immature Granu locytes (promyelocytes, myelocytes and metamyelocytes) > 1% indicates that a LEFT SHIFT is Present. MCH (RBC) [Entitic mass] 32.0 pg 27.0-32.0 [facility] Nucleated RBC/100 WBC (Bld) [Ratio] 0 % 0-5 [facility] MCHC Auto (RBC) [Mass/Vol]Or dered By: Dr. Calderon on 02-27-2023 MCHC (RBC) [Mass/Vol] 33.6 g/dL 32-36 [facility] No Panel InformationOrdered By: Dr. Calderon on 02-27-2023 Estimated Creatinine Clearance Calc 88.71 ml/min [facility] Estimated GFR (MDRD) Amer 115 mL/min >60 [facility] Comment on above: GFR Calc Estimated GFR (MDRD) Non-Af Amer 95 mL/min >60 [facility] Comment on above: Non- GFR Calc Platelets bldOrdered By: Dr. Calderon on 02-27-2023 Platelets (Bld) [#/Vol] 182 10*3/uL 150-450 [facility] Serum or plasma calcium michelle urement (mass/volume)Ordered By: Dr. Calderon on 02-27-2023 Calcium [Mass/Vol] 8.6 mg/dL 8.5-10.1 [facility] Serum or plasma creatinine m easurement (mass/volume)Ordered By: Dr. Calderon on 02-27-2023 Creatinine [Mass/Vol] 0.89 mg/dL 0.70-1.30 [facility] Comment on above: The validity of the calculated GFR & GFRAA in patients over 70 years has not been determined. Clinical correlation is essential. Serum or plasma urea nitroge n measurement (mass/volume)Ordered By: Dr. Calderon on 02-27-2023 Urea nitrogen [Mass/Vol] 11 mg/dL 7-18 [facility] Thin prep Papanicolaou smear with manual screeningOrdered By: Dr. Calderon on 02-27-2023 Thin prep Papanicolaou smear with manual screening 7 5-15 [facility] LABORATORYOrdered By: Elina mendiola on 10-08-2022 Glucose [Mass/Vol] 138 mg/dL High 70 - 110 mg/dL [facility] Work Phone: HbA1c (Bld) [Mass fraction] 7.3 % [facility] Work Phone: Lab Performing Location [facility] Work Phone: LABORATORYOrdered By: Elina mendiola on 04-06-2022 Glucose [Mass/Vol] 153 mg/dL High 70 - 110 mg/dL [facility] Work Phone: HbA1c (Bld) [Mass fraction] 6.2 % [facility] Work Phone: Lab Performing Location [facility] Work Phone: LABORATORYOrdered By: Elina mendiola on 10-16-2021 Glucose [Mass/Vol] 128 mg/dL High 70 - 110 mg/dL [facility] Work Phone: HbA1c (Bld) [Mass fraction] 6.2 % [facility] Work Phone: Lab Performing Location [facility] Work Phone: Vital Signs Date Time Vital Sign Value Performing Clinician Arely malloy 01-17-2025 16:37-0400 Body height 167.64 cm Gage Sanchez NP-C Work Phone: [facility] 01-17-2025 16:37-0400 Body mass index (BMI) [Ratio] 28.4 kg/m2 Gage Sanchez NP-C Work Phone: [facility] 01-17-2025 16:37-0400 Body temperature 98.9 [degF] Gage Sanchez NP-C Work Phone: [phone])088-293938 [place] [address] 01-17-2025 16:37-0400 Body weight 79.94 kg Gage Sanchez OPTICAL INSTRUMENT ASSEMBLY SUPERVISOR-C Work Phone: [phone] [place] [address] 01-17-2025 16:37-0400 Diastolic blood pressure 94 mm[Hg] Gage Sanchez OPTICAL INSTRUMENT ASSEMBLY SUPERVISOR-C Work Phone: 1(324)850-864297 [place] [address] 01-17-2025 16:37-0400 Heart rate 72 /min Gage Sanchez OPTICAL INSTRUMENT ASSEMBLY SUPERVISOR-C Work Phone: [phone])017-842597 [place] [address] 01-17-2025 16:37-0400 Respiratory rate 18 /min Gage Sanchez OPTICAL INSTRUMENT ASSEMBLY SUPERVISOR-C Work Phone: 0(767)796-388297 [place] [address] 01-17-2025 16:37-0400 SaO2% (BldA) [Mass fraction] 97 % Gage Sanchez OPTICAL INSTRUMENT ASSEMBLY SUPERVISOR-C Work Phone: 4([phone] [place] [address] 01-17-2025 16:37-0400 Systolic blood pressure 132 mm[Hg] Gage Vargasder OPTICAL INSTRUMENT ASSEMBLY SUPERVISOR-C Work Phone: [phone] [place] [address] 11-19-2024 14:13-0500 Body mass index (BMI) [Ratio] 29.8 kg/m2 Gage Sanchez OPTICAL INSTRUMENT ASSEMBLY SUPERVISOR-C Work Phone: [phone])259-061797 [place] [address] 11-19-2024 14:13-0500 Body weight 83.91 kg Gage Sanchez OPTICAL INSTRUMENT ASSEMBLY SUPERVISOR-C Work Phone: [phone] [place] [address] 09-07-2024 09:09-0500 Body height 170.2 cm Heron Lyons MD Work Phone: [facility] 09-07-2024 09:09-0500 Body mass index (BMI) [Ratio] 28.58 kg/m2 Heron Lyons MD Work Phone: [facility] 09-07-2024 09:09-0500 Body weight 82.78 kg Heron Lyons MD Work Phone: [facility] 12-24-2023 14:27-0400 Body height 162.56 cm [facility] 12-24-2023 14:27-0400 Body mass index (BMI) [Ratio] 34 kg/m2 [facility] 12-24-2023 14:27-0400 Body temperature 97.9 [degF] [facility] 12-24-2023 14:27-0400 Body weight 90.1 kg [facility] 12-24-2023 14:27-0400 Diastolic blood pressure 90 mm[Hg] [facility] 12-24-2023 14:27-0400 Heart rate 96 /min [facility] 12-24-2023 14:27-0400 Respiratory rate 16 /min [facility] 12-24-2023 14:27-0400 SaO2% (BldA) [Mass fraction] 98 % [facility] 12-24-2023 14:27-0400 Systolic blood pressure 177 mm[Hg] [facility] 08-17-2023 07:45-0500 Body height 170.2 cm Kasey Coyner HEAT TREATER.DEVELOPING MACHINE TENDER Work Phone: [facility] 08-17-2023 07:45-0500 Body weight 87.54 kg Kasey Coyner HEAT TREATER.DEVELOPING MACHINE TENDER Work Phone: [facility] 07-23-2023 02:51-0400 Diastolic blood pressure 77 mm[Hg] [facility] 07-23-2023 02:51-0400 Heart rate 84 /min [facility] 07-23-2023 02:51-0400 Respiratory rate 18 /min [facility] 07-23-2023 02:51-0400 SaO2% (BldA) [Mass fraction] 95 % [facility] 07-23-2023 02:51-0400 Systolic blood pressure 139 mm[Hg] [facility] 07-23-2023 00:23-0400 Body height 170.18 cm [facility] 07-23-2023 00:23-0400 Body mass index (BMI) [Ratio] 29.5 kg/m2 [facility] 07-23-2023 00:23-0400 Body temperature 97.8 [degF] [facility] 07-23-2023 00:23-0400 Body weight 85.6 kg [facility] 02-28-2023 14:00-0400 Diastolic blood pressure 113 mm[Hg] [facility] 02-28-2023 14:00-0400 Heart rate 65 /min [facility] 02-28-2023 14:00-0400 Respiratory rate 16 /min [facility] 02-28-2023 14:00-0400 SaO2% (BldA) [Mass fraction] 99 % [facility] 02-28-2023 14:00-0400 Systolic blood pressure 175 mm[Hg] [facility] 02-27-2023 22:15-0400 Body height 170.18 cm [facility] 02-27-2023 22:15-0400 Body mass index (BMI) [Ratio] 32.5 kg/m2 [facility] 02-27-2023 22:15-0400 Body temperature 98.5 [degF] [facility] 02-27-2023 22:15-0400 Body weight 94.16 kg [facility] Encounters Encounter Date Encounter Type Care Provider Facility Start: 01-17-2025 End: 01-17-2025 ambulatory Gage Sanchez OPTICAL INSTRUMENT ASSEMBLY SUPERVISOR-C Work Phone: [facility] Work Phone: Start: 01-17-2025 End: 01-17-2025 Patient encounter procedure Josemanuel Padilla [facility] Work Phone: Start: 01-17-2025 End: 01-17-2025 ambulatory Gage Sanchez [facility] Facility:[facility] Start: 12-19-2024 ambulatory [facility] Facility [facility] Start: 11-26-2024 End: 11-26-2024 Refill Heron Lyons MD Work Phone: Urology Comment on above: Refill Request Start: 11-19-2024 End: 11-19-[address] Nelson Perez MD -[facility] Work Phone: Start: 11-19-2024 End: 11-19-2024 ambulatory Nelson Perez Facility:[facility] Start: 11-05-2024 ambulatory Nelson Perez Facility :[facility] Start: 10-01-2024 End: 10-01-2024 Patient encounter procedure Zebulun Beam OPTICAL INSTRUMENT ASSEMBLY SUPERVISOR-C -Labor[facility], [place] Work Phone: Start: 10-01-2024 End: 10-01-2024 ambulatory Prabhjotsanjuananorth Abad [facility] Facility[facility] Start: 09-08-2024 End: 09-08-2024 Emergency department patient visit No Primary Care Physician Facility:[facility] Start: 09-07-2024 End: 09-07-2024 ambulatory [facility] Facility:[facility] Start: 09-07-2024 End: 09-07-2024 Office outpatient visit 25 minutes Heron Lyons MD Work Phone: Urology Comment on above: History of vasectomy (Primary Dx); Testicular pain, left; Impotence of organic origin Start: 12-24-2023 End: 12-24-2023 Emergency department patient visit [facility] Work Phone: Start: 09-30-2023 End: 09-30-2023 ambulatory [facility] Facility:[facility] Start: 08-17-2023 End: 08-17-2023 Patient encounter procedure Kasey Heller APRN.CNP Work Phone: Urology Comment on above: Vasectomy evaluation (Primary Dx) Start: 07-26-2023 End: 07-26-2023 ambulatory [facility] Start: 07-23-2023 End: 07-23-2023 Emergency department patient visit [facility] Work Phone: Start: 07-14-2023 End: 07-14-[facility] Start: 02-27-2023 End: 02-28-2023 Emergency department patient visit [facility] Start: 10-08-[address] VISHAL HENDERSON DO Fa cility:B Start: 10-08-2022 End: 08-29-[address] VISHAL HENDERSON DO [facility] Procedures Date Procedure Procedure Detail Performing Clinician Start: 01-17-2025 X-ray of chest, PA and lateral views Gage Laura [facility]ASC Work Phone: Start: 11-19-2024 Plain X-ray of shoulder Gage Laura OPTICAL INSTRUMENT ASSEMBLY SUPERVISOR-Marina Work Phone: Start: 09-26-[address] VISHAL HENDERSON DO H/O: vasectomy History of vasectomy Heron Lyons MD Work Phone: Repair of musculoten dinous cuff of shoulder DR VISHAL HENDERSON DO Plan of Treatment Date Care Activity Detail Author Start: 07-26-2026 Diabetes Screening Diabetes Screenin g [facility] Start: 12-14-2024 End: 12-14-2024 Patient encounter procedure 12/14/2024 9:00 AM EDT Office Visit Urology [address] [id number] Heron Lyons MD [address] [place], [place] [id number] 3 mo follow up Urology Comment on above: 3 mo follow up Start: 12-06-2024 End: 12-06-2024 Patient encounter procedure 12/06/2024 7:45 AM EDT Appointment Radiology [address] [address] History of vasectomy [Z98.52] Radiology Comment on above: History of vasectomy [Z98.52] Start: 05-27-2024 Covid-19 Vaccine ( season) Covid-19 Vaccine () [facility] Start: 05-27-2024 Influenza vaccination Influenza Vacc ine (#1) [facility] Start: 12-24-2023 [facility] Start: 2023 Prostate specific antigen measurement Prostate Cancer Screening Discussion [facility] Start: 07-23-2023 [facility] Start: 05-27-2023 Covid-19 Vaccine () Covid-19 Vaccine () [facility] Start: 05-27-2023 Influenza vaccination Influenza Vacc ine (#1) [facility] Start: 09-26-2022 Depression Assessment Depression Ass essment [facility] Start: 2018 Shingrix Vaccine (1 of 2) Shingrix Vaccine (1 of 2) [facility] Start: 2013 Cologuard (FIT-DNA) Cologuard (FIT-D NA) [facility] Start: 2013 Colonoscopy Colonoscopy [facility] Start: 2013 Colorectal Cancer Screening Colorectal Cancer Screening [facility] Start: [address] Colonography [facility] Start: 2013 Fecal Occult Blood Fecal Occult Bloo d [facility] Start: 2013 Screening for malign ant neoplasm of colon [facility] Start: 2013 Sigmoidoscopy Sigmoidoscopy [facility] Start: 2003 Lipid 1996 panel - S jaci or Plasma Lipid Screening [facility] Start: 2003 Lipid panel Lipid Screening [facility] Start: 1987 Hepatitis B Vaccine (1 of 3 - 19+ 3-dose series) Hepatitis B Vaccine (1 of 3 - 19+ 3-dose series) [facility] Start: 1987 Pneumococcal Vaccine : 50+ (1 of 2 - PCV) Pneumococcal Vaccine: 50+ (1 of 2 - PCV) [facility] Start: 1987 Urine microalbumin profile DTaP,Tdap,Td Vaccine (1 - Tdap) [facility] Start: 1986 Anxiety Screening Anxiety Screening [facility] Start: 1986 Depression Screening Depression Scre ening [facility] Start: 1986 Hepatitis C Screening Hepatitis C [facility] Start: 1986 Hepatitis C screening Hepatitis C [facility] Start: 1986 HIV Screening HIV Screening [facility] Start: 1986 HIV screening HIV Screening [facility] Start: 1974 Pneumococcal vaccination [facility] Start: 1968 Hepatitis B Vaccine (1 of 3 - 3-dose series) Hepatitis B Vaccine (1 of 3 - 3-dose series) [facility] MR Lower Extremity Joint [facility] Patient Education [facility] Work Phone: Patient referral [facility] Work Phone: End: 10-07-2025 US.doppler Scrotum and testicle US SCROTUM AND CONTENTS Radiology Routine History of vasectomy 1 Occurrences starting 09/07/2024 until 10/07/2025 Work Phone: Comment on above: 1 Occurrences starti ng 09/07/2024 until 10/07/2025 End: 10-07-2025 US.doppler Unspecified body region US DOPPLER COMPLETE Radiology Routine History of vasectomy 1 Occurrences starting 09/07/2024 until 10/07/2025 [facility] Comment on above: 1 Occurrences starti ng 09/07/2024 until 10/07/2025 Vasectomy uni/bi spx w/postop semen exams VASECTOMY Procedures Routine Vasectomy evaluation Ordered: 08/17/2023 Work Phone: Comment on above: [facility] Immunization Date Immunization Notes Care Provider [facility] 02-12-2021 SARS-CoV-2 mRNA (tozinameran) vaccine DR VISHAL HENDERSON DO [facility] Comment on above: Result Comment: 2020: [id number] 01-22-2021 SARS-CoV-2 mRNA (tozinameran) vaccine DR VISHAL HENDERSON DO [facility] Comment on above: Result Comment: 2020: [id number] 08-01-2019 influenza, injectabl e, quadrivalent, preservative free [facility] 08-01-2019 influenza, seasonal, injectable [facility] 08-01-2019 influenza, seasonal, injectable, preservative free Heron Lyons MD Work Phone: [facility] 08-01-2019 influenza virus vaccine, unspecified formulation Kasey Heller APRN.CNP Work Phone: [facility] Payers Date Payer Category Payer Unknown [id number] 2024 Self-pay [id number] 2022 Blue [employer] Blue Shield BLUE CARD PPO OOS [id number] 2022 Unknown [employer]THEM BLUE CARD PPO OOS [id number] 2022-Present [phone] [id number] [place] [address] PPO [id number] 2022 Unknown [id number] 2022 Unknown [id number] 1970 Unknown [id number] 1970 Unknown [id number] 1970 Unknown [id number] .297 Private Health Insurance [facility] *DONOTUSE [id number] Unknown [id number] Unknown [id number] Unknown [id number] Unknown [id number] .462 Unknown [id number] .462 Unknown [id number] .462 Unknown [id number] .462 Unknown [id number] Social History Date Type Detail Facility Start: 02-27-2023 End: 12-24-2023 Tobacco smoking status WYIS Unknown if ever smoked [facility] Start: 08-01-2019 Cigarettes [facility] Start: 1970 Sex Assigned At Male [facility] Start: 08-17-2023 End: 11-19-2024 Tobacco smoking status WYIS Smokes tobacco daily [facility] History of tobacco use Cigarette Smoker [facility] Start: 08-17-2023 End: 09-07-2024 Cigarettes smoked current (pack per day) - Reported 0.5 [facility] Start: 08-17-2023 End: 09-07-2024 Tobacco use and exposure Smokeless tobacco non-user [facility] Start: 08-17-2023 End: 09-07-2024 Tobacco use panel [facility] National Score (1-100), lower number is lower risk 90 [facility] Start: 1970 Sex Assigned At Not on file [facility] Start: 11-20-2020 Tobacco smoking status Light tobacco smoker (finding) [facility] Start: 09-07-2024 Alcoholic beverage intake Current drinker of alcohol (finding) [facility] Start: 01-21-2025 Sex Male (finding) [facility] NEGATED: Highlighted rowStart: NYDIAF History of tobacco use Passive smoker [facility] Medical Equipment Procedure Code Equipment Code Equipment Origin al Text Equipment Identifier Dates Appendectomy, laparoscopic RELOAD,STANDARD 45 [id number] ETH FDA Start: 07-31-2019 Appendectomy, laparoscopic RELOAD,STANDARD 45 [id number] ETH FDA Start: 07-31-2019 Appendectomy, laparoscopic RELOAD,STANDARD 45 [id number] ETH FDA Start: 07-31-2019 Appendectomy, laparoscopic RELOAD,STANDARD 45 [id number] ETH FDA Start: 07-31-2019 Start: 07-26-2023 See Instructions , Brand as covered Test blood sugar twice daily Diagnosis E 11.9 #100 with refills x5, # 1 EA, 0 Refill(s), Pharmacy: [id number], 170, cm, 12/04/20 14:23:00 EST, Height, 90.4, kg, 01/09/21 11:07:00 EDT, Dosing Weight Start: 01-09-2021 See Instructions , Brand as covered Test blood sugar twice daily Diagnosis E 11.9 #100 with refills x5, # 1 EA, 0 Refill(s), Pharmacy: [id number], 170, cm, 11/20/20 10:35:00 EST, Height, 89.8, kg, 11/20/20 10:35:00 EST, Dosing Weight Start: 11-20-2020 Mental Status Date Assessment Result Facility 07-23-2023 Cognitive function Level Of Cons ciousness Awake;Alert;Appropriate;Follow s [facility] Work Phone: 02-27-2023 Cognitive function Level Of Cons ciousness Awake;Alert;Appropriate;Follow s [facility] Work Phone: Clinical Notes 02-28-2023 to 01-17-2025 Note Date & Type Note Facility 01-17-2025 Radiology Diagnostic study note [facility] Imaging Services [address] [place], [place] [id number] Chest PA and Lateral MR#: [id number] Acct: [id number] Name: ALONSOBENJY Sophie Rep #: [id number] : 1970 M 54 From: Leonardo España DO PCP: Gage Sanchez NP-C Status: REG CLI Study:Chest PA and Lateral Date of Exam: 01/17/25 Exam# [id number] Ordering Dr: Marina Padilla PROCEDURE: CHEST PA AND LATERAL 01/17/2025 REASON FOR EXAM: RIB PAIN TECHNIQUE: Frontal and lateral views of the chest. COMPARISON: None FINDINGS: Cardiomediastinal silhouette is within normal limits. Lungs are clear. No sizable pneumothorax. RAD/Chest PA and Lateral IMPRESSION: No acute airspace abnormality. Reading Location: [facility] CC: OPTICAL INSTRUMENT ASSEMBLY SUPERVISOR-C Gage Sanchez; JOSE Parada ~ Mobile Heavy Equipment Operator: Signed [facility] 11-19-2024 Evaluation note Diagnosis Onset Date Resolution Left shoulder pain acute Februa ry 2024 1:55pm Right shoulder pain acute Febru pilar 2024 1:55pm Secondary osteoarthritis, right shoulder acute November 19, 1:55pm Chest wall contusion acute Apri l 2024 4:36pm [facility] Work Phone: 1(614) 235-411412-13-2024 NoteHNO ID: [id number] Author: HERON LYONS MD Service: ? Author Type: Physician Type: Progress Notes Filed: 09/07/2024 09:23 Note Text: [facility] UROLOGY ESTABLISHED PATIENT CLINIC NOTE PATIENT INFO: Benjy Gupta PCP: No primary care provider on file. UROLOGY DIAGNOSES: 1. History of vasectomy - ICD9: V26.52, ICD10: Z98.52 (primary diagnosis) 2. Testicular pain, left - ICD9: 608.9, ICD10: N50.812 3. 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 History of vasectomy 09/30/2023 Did not get PVSA Having issues with erections Left testicle pain Constant +ED since as well PMHx/PSHx: see above, otherwise unchanged Rx: reviewed and unchanged ROS: see above, otherwise unchanged Labs: Imaging: None MEDICATIONS: Current Outpatient Medications Medication Sig acetaminophen (TYLENOL EXTRA STRENGTH) 500 mg tablet Take 500 mg by mouth every 8 hours as needed. albuterol HFA (PROVENTIL HFA, VENTOLIN HFA) 90 mcg/actuation inhaler insulin glargine U-300 conc (TOUJEO MAX) 300 unit/mL (3 mL) inpn Inject 26 Units subcutaneously. lisinopril (ZESTRIL) 10 mg tablet Take 1 tablet by mouth once daily. BD INSULIN PEN NEEDLE UF 31 gauge x 16 oxaprozin (DAYPRO) 600 mg tablet Take 2 tablets by mouth once daily for 7 days. predniSONE (DELTASONE) 5 mg tablet prednisone 20 mg a day for 5 days, then prednisone 10 mg a day for 5 days, then prednisone 5 mg a day for 20 days Tadalafil (CIALIS) 5 mg tablet Take 1 tablet by mouth once daily. diclofenac potassium (CATAFLAM) 50 mg tablet (Patient not taking: Reported on 09/07/2024) hydroCHLOROthiazide 12.5 mg tablet Take by mouth. (Patient not taking: Reported on 09/07/2024) No current facility-administered medications for this visit. PHYSICAL EXAM: Ht 170.2 cm (5' 7) Wt 82.8 kg (182 lb 8 oz) BMI 28.58 kg/m? Body mass index is 28.58 kg/m?. General: Well masculinized, well nourished male Psych: euthymic, NAD Neuro: AANDOx3 Inguinal: No lesions, adenopathy, or hernias Phallus: normal, circumcised, no lesions Meatus: orthotopic, patent, no discharge Scrotum: no lesions, normal rugae Testes: Descended, nontender, and no masses bilaterally DIAGNOSES: 1. History of vasectomy - ICD9: V26.52, ICD10: Z98.52 (primary diagnosis) 2. Testicular pain, left - ICD9: 608.9, ICD10: N50.812 3. 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 IMPRESSION/PLAN: Hx of Vasectomy 09/2023 Constant L testis pain, hyperreflexic cremaster Check CHA Start Daypro and Prednisone Can consider PFPT ED - Start Cialis 5mg daily RTO 3 mo Heron Lyons [facility]12-13-2024 History of Present illness Narrative*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 ASSEMBLY SUPERVISOR-C Primary Care Provider Active Team Status: Inactive Member Role Status Dates Gage HORN, OPTICAL INSTRUMENT ASSEMBLY SUPERVISOR-C Primary Care Provider Active Start: October 01, 2024 End: October 01, 2024 Prabhjotbuluarti Beam VSC, OPTICAL INSTRUMENT ASSEMBLY SUPERVISOR-C Attending Provider Active Start: October 01, 2024 End: October 01, 2024 Colt Beam VSMarina, OPTICAL INSTRUMENT ASSEMBLY SUPERVISOR-C Referring Provider Active Start: October 01, 2024 End: October 01, 2024 Team Status: Inactive Member Role Status Dates Gage HORN, OPTICAL INSTRUMENT ASSEMBLY SUPERVISOR-C Primary Care Provider Active Start: November 19, 2024 End: November 19, 2024 Gage HORN OPTICAL INSTRUMENT ASSEMBLY SUPERVISOR-C Referring Provider Active S tart: November 19, 2024 End: November 19, 2024 Nelson Perez MD Attending Provider Active St art: November 19, 2024 End: November 19, 2024 Team Status: Inactive Member Role Status Dates Gage Sanchez VSC, OPTICAL INSTRUMENT ASSEMBLY SUPERVISOR-C Primary Care Provider Active Start: November 19, 2024 End: November 19, 2024 Dr. Jak Fuller MD Attending Provider Active S tart: November 19, 2024 End: November 19, 2024 Team Status: Inactive Member Role Status Dates Gage Sanchez VSC, OPTICAL INSTRUMENT ASSEMBLY SUPERVISOR-C Primary Care Provider Active Start: January 17, 2025 End: January 17, 2025 JOSE Perez Attending Provider Active Sta rt: January 17, 2025 End: January 17, 2025 JOSE Perez Referring Provider Active Sta rt: January 17, 2025 End: January 17, 2025 Team Status: Inactive Member Role Status Dates Gage Laura LIGHTC, OPTICAL INSTRUMENT ASSEMBLY SUPERVISOR-C Primary Care Provider Active Start: January 17, 2025 End: January 17, 2025 Gage Sanchez KORY, OPTICAL INSTRUMENT ASSEMBLY SUPERVISOR-C Referring Provider Active S tart: January 17, 2025 End: January 17, 2025 JOSE Perez Attending Provider Active Sta rt: January 17, 2025 End: January 17, 2025 Goals (unrecognized section and content) Goals may be documented in a n alternate sectionGoals may be documented in an alternate sectionGoals may be documented in an alternate section No data available for this sectionGoals may be documented in an alternate section Source Comments (unrecognize d section and content) In the event this informatio n is protected by the Federal Confidentiality of Alcohol and Drug Abuse Patient Records regulations: The Federal rules restrict any use of the information to criminally investigate or prosecute any alcohol or drug abuse patient.[facility] the event this information is protected by the Federal Confidentiality of Alcohol and Drug Abuse Patient Records regulations: The Federal rules restrict any use of the information to criminally investigate or prosecute any alcohol or drug abuse patient.[facility] the event this information is protected by the Federal Confidentiality of Alcohol and Drug Abuse Patient Records regulations: The Federal rules restrict any use of the information to criminally investigate or prosecute any alcohol or drug abuse patient.[facility] Reason for Visit (unrecogniz ed section and content) Reason Comments New Patient Vasectomy consult Reason Comments Follow Up post vasectomy issue s Reason Comments Refill Request FOR RECORDS PERTAINING TO PATIENTS WHO ARE OR HAVE BEEN ENROLLED IN A CHEMICAL DEPENDENCY/SUBSTANCEABUSE PROGRAM, SOME INFORMATION MAY BE OMITTED. This clinical summary was aggregated from multiple sources. Caution should be exercised in using it in the provision of clinical care. This summary normalizes information from multiple sources, and as a consequence, information in this document may materially change the coding, format and clinical context of patient data. In addition, data may be omitted in some cases. CLINICAL DECISIONS SHOULD BE BASED ON THE PRIMARY CLINICAL RECORDS. [facility] [employer] [facility]. provides no warranty or guarantee of the accuracy or completeness of information in this document.
[2025-08-30 13:02] LABS: Hematocrit 49.2 % (40-54); Hemoglobin 17.2 g/dL (13.0-16.5); Immature Granulocytes Count 0.010 X10^3/uL (0.0-0.0); Mean Corp Hgb Conc 35.0 g/dL (32-36); Mean Corpuscular Volume 92.7 fL (80-94); Mean Platelet Vol. 10.0 fl (6.2-12.0); NRBC Flagged by Analyzer 0 % (0-5); Platelet Count 258 K/mm3 (150-450); RBC Distribution Width CV 11.4 % (11.6-14.6); RBC Distribution Width SD 38.9 fl (35.1-43.9); Red Blood Count 5.31 M/mm3 (4.6-6.2); White Blood Count 6.7 K/mm3 (4.4-11.0)
[2025-08-30 13:50] LABS: AST(SGOT) 26 U/L (<=37); Alanine Aminotransfer ALT/SGPT 43 U/L (<=46); Albumin, Serum 4.2 g/dL (3.5-5.0); Alkaline Phosphatase 82 U/L (40-129); Anion Gap 11 (5-15); BUN 10 mg/dL (4-19); BUN/Creat Ratio 17.2 RATIO (10-20); Calcium,Total 9.2 mg/dL (7.6-11.0); Carbon Dioxide 20.4 mmol/L (21.0-32.0); Chloride 102 mmol/L (98-108); Cholesterol 181 mg/dL (<=200); Follicle Stimulating Hormone 29.9 mIU/mL; Globulin 3.2 g/dL (2.2-4.2); Glucose 125 mg/dL (70-99); Low Density Lipoprotein Calc. 110 mg/dL; Potassium 4.4 mmol/L (3.3-5.1); Triglycerides 129 mg/dL; Very Low Density Lipoprotein 26 mg/dL (5-40); cholesterol:hdl ratio screen 3.78
[2025-08-30 14:08] LABS: Microalbumin,Random Urine 42.7 mg/L (<20 mg/L)
[2025-09-05 12:08] LABS: PROLACTIN 7.5 ng/mL (3.6-25.2); Testosterone, % Free 1.04 % (1.50-4.20); Testosterone, Free 8.16 ng/dL (5.00-21.00)
== END | disposition home or self-care (01) ==
LOC: VSLAB 11:56
PROVIDERS: PCP Nurse Practitioner Family
DX: E11.9 Type 2 diabetes mellitus without complications (principal); N52.9 Male erectile dysfunction, unspecified
CPT/HCPCS: 36415; 80053; 80061; 82043; 83001; 83002; 84146; 84402; 84403; 84443; 85025

== ENCOUNTER → 2025-09-09 | Outpatient (CLI) | payer BC, SELFPAY | END | disposition home or self-care (01) | DX: R06.09 Other forms of dyspnea (principal) | CPT/HCPCS: 94060; 94726; 94729 ==

== ENCOUNTER → 2025-09-16 | Outpatient (CLI) | payer BC, SELFPAY ==
--- NOTE | 2025-09-16 08:02 | ART_ITS ---
Reason For Study Reason For Study: PVD Procedure A bilateral lower extremity continuous wave Doppler with analog waveform analysis,segmental pressures,and ankle brachial indexes with exercise. Left Segmental Pressures Left brachial= 162mmHg. Left posterior tibial artery = 171mmHg. Left dorsalis pedis artery = 180mmHg. Left digit = 62 mmHg. The left posterior tibial artery waveforms are triphasic. The left dorsalis pedis waveforms are triphasic. Right Segmental Pressures Right brachial= 148mmHg. Right posterior tibial artery = 164mmHg. Right dorsalis pedis artery = 181mmHg. Right digit = 77 mmHg. The right posterior tibial artery waveforms are triphasic. The right dorsalis pedis waveforms are triphasic. Indices The right ankle brachial index by the posterior tibial artery is 1.01. The right ankle brachial index by the dorsalis pedis is 1.12. The right digital-brachial index is 0.48. The right post exercise ankle brachial index is 1.14. The left ankle brachial index by the posterior tibial artery is 1.06. The left ankle brachial index by the dorsalis pedis is 1.11. The left digital-brachial index is 0.38. The left post exercise ankle brachial index is 1.13. VL/Lower Ext Art Exam w/ Exercise Interpretation Summary Right GENESIS 1.12, normal. Doppler/PVR waveforms of the right leg normal at rest. TBI diminished, pedal/digit disease vs spasm. Right lower extremity exhibits normal response to exercise. Left GENESIS 1.11, normal. Doppler/PVR waveforms of the left leg normal at rest. TB I diminished, pedal/digit disease vs spasm. Left lower extremity exhibits normal response to exercise. Ordering Physician: Colt Abad Referring Physician: Colt Abad ASSISTANT PLANT MANAGER Performed By: Malcolm Rosas RVT
--- NOTE | 2025-09-16 08:09 | RAD_ITS ---
PROCEDURE: CLAVICLE 09/16/2025 REASON FOR EXAM: PAIN IN LEFT SHOULDER TECHNIQUE: Procedure Code: RADCL Modality: DX Procedure: CLAVICLE RAD/Clavicle IMPRESSION: No acute fracture or dislocations. Mild degenerative changes of the left should er. No acute soft tissue abnormalities. No radiographic foreign body. Reading Location: [id number]
--- NOTE | 2025-09-16 08:45 | RAD_ITS ---
PROCEDURE: SHOULDER MIN 2 VIEWS 09/16/2025 REASON FOR EXAM: PAIN IN LEFT SHOULDER TECHNIQUE: Procedure Code: ARTEMIO Modality: DX Procedure: SHOULDER MIN 2 VIEWS COMPARISON: Left shoulder study dated 11/19/2024 FINDINGS: Four views of the left shoulder demonstrate mild bony demineralization of the osseous structures. There are no fractures or dislocations. Very mild degenerative osteoarthritic changes are seen involving the left acromioclavicular joint and glenohumeral joint. The coracoclavicular space and acromial humeral spaces are well-maintained. The visualized left ribs are unremarkable. The visualized left lung is expanded and clear. RAD/Shoulder min 2 Views IMPRESSION: Diffuse bony demineralization of the left shoulder. Very mild degenerative osteoarthritic changes involving the left acromioclavicu lar and glenohumeral joints Reading Location: [id number]
== END | disposition home or self-care (01) ==
DX: I73.9 Peripheral vascular disease, unspecified (principal); M25.512 Pain in left shoulder
CPT/HCPCS: 73000; 73030; 93924

== ENCOUNTER → 2025-09-20 | Outpatient (CLI) | payer BC, SELFPAY ==
--- NOTE | 2025-09-20 13:12 | MRI_ITS ---
PROCEDURE: UPPER EXT JOINT ONLY(ROUTINE) 09/20/2025 REASON FOR EXAM: LEFT SHOULDER TECHNIQUE: Procedure Code: MRIUEJ Modality: MR Procedure: UPPER EXT JOINT ONLY(ROUTINE) Multiplanar and multisequence images were obtained without IV contrast administration. COMPARISON: 16-Sep-2025 CR FINDINGS: Suboptimal examination quality due to motion artifact. The supraspinatus tendon shows intrasubstance high signal abutting its articular surface suggesting tendonitis with partial thickness tear. No evidence of complete fibers interruption. Intrasubstance high signal of the subscapularis tendon suggesting tendonitis. No evidence of complete fibers interruption. Intrasubstance high signal of the infraspinatus tendon suggesting tendinosis with no evidence of complete fibers interruption. The teres minor tendon appears intact. High signal of the intra-articular segment of the long head of biceps tendon suggesting tendonitis with ill definition of its fibers suggesting tear. Fluid signal distending its sheath. High signal of the anterior glenoid labrum. Degenerative arthropathic changes of the acromioclavicular joint evident by marginal osteophytic lipping, cortical irregularities and subcortical marrow edema of its opposing articular surfaces with hypertrophied edematous joint capsule inducing subacromial impingement. Intact glenohumeral joint. Mild glenohumeral joint effusion Fluid signal distending the subcoracoid and subacromial/subdeltoid bursa. Focal cortical irregularities and subcortical pseudocysts & marrow edema of the humeral head/greater tuberosity. No marrow infiltrative lesions. The neurovascular bundles appear unremarkable. MRI/Upper Ext Joint Only(Routine) IMPRESSION: Suboptimal examination quality due to motion artifact. Degenerative arthropathic changes of the acromioclavicular joint with subacromi al impingement. Supraspinatus tendonitis with partial thickness tear. Subscapularis tendonitis. Infraspinatus tendonitis. Tear on top of tendonitis of the long head of biceps tendon. Mild glenohumeral joint effusion with small subcoracoid and subacromial/subdelt oid bursitis. Degenerative signal of the anterior labrum. Reading [facility]
--- NOTE | 2025-09-20 13:12 | MRI_ITS ---
PROCEDURE: UPPER EXT JOINT ONLY(ROUTINE) 09/20/2025 REASON FOR EXAM: RIGHT SHOULDER TECHNIQUE: Procedure Code: MRIUEJ Modality: MR Procedure: UPPER EXT JOINT ONLY(ROUTINE) Multiplanar and multisequence images were obtained without IV contrast administration. COMPARISON: 19-Nov-2024 CR FINDINGS: Suboptimal examination quality due to motion artifact. Internal fixation of the inferior and anteroinferior bony glenoid by screws inducing metallic susceptibility artifact degrading the images quality. The supraspinatus tendon shows intrasubstance high signal abutting its articular surface suggesting tendonitis with partial thickness tear. No evidence of complete fibers interruption. Thickening and intrasubstance high signal of the subscapularis tendon suggesting tendonitis. No evidence of complete fibers interruption. Intrasubstance high signal of the infraspinatus tendon suggesting tendinosis with no evidence of complete fibers interruption. The teres minor tendon appears intact. Ill definition of the long head of biceps tendon. Diffuse increased signal of the glenoid labrum with blunted anterior and anteroinferior labrum. Degenerative arthropathic changes of the acromioclavicular and glenohumeral joints evident by marginal osteophytic lipping, cortical irregularities and subcortical marrow edema of its opposing articular surfaces with hypertrophied acromioclavicular joint capsule inducing subacromial impingement. Mild glenohumeral joint effusion Fluid signal distending the subcoracoid and subacromial/subdeltoid bursa. Large subcortical pseudocysts of the humeral head/greater tuberosity. Focal cortical irregularities and subcortical & marrow edema of the humeral head noted. No marrow infiltrative lesions. The neurovascular bundles appear unremarkable. MRI/Upper Ext Joint Only(Routine) IMPRESSION: Suboptimal examination quality due to motion artifact. Internal fixation of the bony glenoid inducing metallic susceptibility artifact degrading the images quality. Degenerative arthropathic changes of the acromioclavicular joint with subacromi al impingement. Supraspinatus tendonitis with partial thickness tear. Subscapularis tendonitis. Infraspinatus tendonitis. Tear on top of tendonitis of the long head of biceps tendon. Degenerated glenoid labrum. Degenerative arthropathic changes of the glenohumeral joint. Mild glenohumeral joint effusion with small subcoracoid and subacromial/subdelt oid bursitis. Large subcortical pseudocysts of the humeral head/greater tuberosity. Reading Location: [facility]
--- OUTSIDE RECORDS SUMMARY | 2025-09-20 13:22 | XMS RPT_ITS | CCD ---
Author Organization [facility] CliniSyms Care Team Providers Care Manager Lpn Name Role Phone SANTIAGO BARKER, DR. RODGERS Attending Unavaildon HENDERSON DO, DR. RODGERS Primary Care UnavailSARY Carlin Referring Unavailable SARY FRANCO Attending Unavailable SARY FRANCO Primary Care Unavailable DOT STEPHEN Attending Unavailable Unavailable Primary Care Provider Unavaildon HENDERSON DO, DR RODGERS Primary Care Physician [phone] Unavailable Primary Care Provider UnavailHERON Marie Attending Unavailable HERON LYONS Attending Unavailable Sanchez IT SECURITY MANAGER-C, Gage Primary Care Provider Beam IT SECURITY MANAGER-C, Zebulun Attending Provider Beam IT SECURITY MANAGER-C, Zebulun Referring Provider Sanchez IT SECURITY MANAGER-C, Gage Referring Provider Nelson Perez MD Attending Provider [phone] Alina RIVERO, Dr. Benedict Attending Provider Josemanuel Gray Attending Provider Josemanuel Gray Referring Provider [phone] Jak Fuller Attending Unavailable Sanchez VSC, [...] Unavailable Beam VSC, Zebulun Referring Unavailable Laura [facility], Gage Primary Care Unavailable Medications Current Medications [...] mouth every 8 hours as needed. Active [id number] 200 actuat albuterol 0.09 mg/actuat metered dose [...] 11.9, # 1 EA, 0 Refill(s), Pharmacy: [facility]/pharmacy #[id number], 170, cm, 11/20/20 10:35:00 EST, Height, [...] supply, # 9 mL, 1 Refill(s), Pharmacy: [facility]/pharmacy #[id number], 170.2, cm, 03/03/21 11:12:00 EDT, Height, [...] qDay, # 90 tab(s), 1 Refill(s), Pharmacy: [facility]/pharmacy #[id number], 170.2, cm, 03/03/21 11:12:00 EDT, Height, kg, 07/17/21 9:10:00 EDT, Dosing Weight Start Date: 07/17/21 Status: Ordered Comment on above: Take 1 tablet by [facility] once daily. 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] Onset: 07-26-2023 Episodic Other aftercare (1 source) Long-term current use of insulin; Translations: [senior care (current) use of insulin] Episodic Other aftercare (1 source) Long-term current use of oral hypoglycemic medication; Translations: [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 COMPARISON: None FINDINGS: Cardiomediastinal silhouette is within normal limits. Lungs are clear. No sizable pneumothorax. RAD/Chest PA and Lateral IMPRESSION: No acute airspace abnormality. Reading Location: [facility] CC: SUZETTE Sanchez; JOSE Parada Suit Attendant: Signed Normal [facility] Visit Reporton 0 01-17-2025 Urgent Care Visit Report [facility] [address], [address] [place] [address] OFFICE VISIT Date of Service: 01/17/25 MR#: [id number] Acct: [id number] Name: BENJY GUPTA V Rep #: [id number] : 1970 Provider: JOSE Parada Age/Sex: 54/M Location: [facility] Status: Signed Intake Vital Signs 11/19/24 14:13 [...] RIBS INJURY Chief Complaint: bilat rib pain Footwear Sales Representative Required: No Is patient in pain?: Yes [...] LT>RT with SOB. s/s have not improved. [facility] Medical History (Updated 01/18/25 @ 13:11 by [...] with all (more content not included)... Normal [facility] Orthopedic Visit Reporton Orthopedic Visit Report [facility] [address] [place] [address] OFFICE VISIT Date of Service: 11/19/24 MR#: [id number] Acct: [id number] Name: BENJY GUPTA V Rep #: [id number] : 1970 Provider: Dr. 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 has [...] by samaria (more content not included)... Normal [facility] Shoulder min 2 Viewson 11-19 Shoulder min 2 Views [facility] [address] [place], [place] [id number] Shoulder min 2 Views MR#: [id number] Acct: [id number] Name: BENJY GUPTA V Rep #: [id number] : 1970 M 54 From: Dudley Stevens i DO PCP: SUZETTE Wyatt Status: DEP AMB Study: Shoulder min 2 Views Date of Exam: 11/19/24 Exam# [id number] Ordering Dr: Nelson Perez MD PROCEDURE: Right [...] acromioclavicular joint. The subacromial space is maintained. Vgjfhwni-sx-jnfnvx degenerative change of the right hip glenohumeral [...] change of the right acromioclavicular joint and yvmbrvbr-cu-msoaah degenerative change of the right glenohumeral joint. 2 metallic densities project over the right shoulder region as described above, measuring up to 2.9 cm. These could relate to prior surgical procedures or prior trauma. The largest metallic density projects over the right axillary soft tissues, curvilinear in shape, measuring up to 2.9 cm. Reading Location[facility] CC: IT SECURITY MANAGER-C Gage Sanchez; Dr. Nelson Perez MD Suit Attendant: Signed Normal [facility] Shoulder min 2 Views [facility] [address] [place] [address] Shoulder min 2 Views MR#: [id number] Acct: [id number] Name: BENJY GUPTA V Rep #: [id number] : 1970 M 54 From: Dudley Stevens i DO PCP: SUZETTE Wyatt Status: DEP AMB Study: Shoulder min 2 Views Date of Exam: 11/19/24 Exam# [id number] Ordering Dr: Nelson Perez MD PROCEDURE: Left [...] Minimal degenerative changes as above. Reading [facility] CC: SUZETTE Sanchez; Dr. Nelson Perez MD Suit Attendant: Signed Normal [facility] Absolute neutrophil countOrd ered By: [facility] on 10-01-2024 Neutrophils (Bld) [#/Vol] 3.5 10*3/uL 2.0-7.7 [facility] Albumin to globulin ratioOrd ered By: [facility] on 10-01-2024 Albumin/Globulin [Mass ratio] 0.9 {ratio} 0.9-2.4 [facility] Basophil percentageOrdered B y: [facility] on 10-01-2024 Basophils/100 WBC (Bld) 0.8 % 0-1 [facility] Bilirubin, totalOrdered By: [facility] on 10-01-2024 Bilirubin [Mass/Vol] 0.70 mg/dL 0.20-1.00 [facility] Comment on above: For patients on eltr ombopag therapy, use of Dimension Crosby TBIL is not recommended. Blood urea nitrogen (BUN)/cr eatinine ratioOrdered By: [facility] on 10-01-2024 Urea nitrogen/Creatinine [Mass ratio] 18.5 mg/mg 10-20 [facility] CBC W/Diff, Automatedon Absolute Lymph 3.50 X10 3/uL Normal 0.83-4.51 [facility] Comment on above: Performed By: #### L 100.0100, L501.9520, L500.4050, L501.5200, L502.0500 #### [facility] [address] [place], [address] Absolute Neut 3.5 X10 3/uL Normal 2.0-7.7 [facility] Comment on above: Performed By: #### L 100.0100, L501.9520, L500.4050, L501.5200, L502.0500 #### [facility] [address] [place], [address] Basophils/100 WBC (Bld) 0.8 % Normal 0-1 [facility] Comment on above: Performed By: #### L 100.0100, L501.9520, L500.4050, L501.5200, L502.0500 #### [facility] [address] [place], [address] Eosinophils/100 WBC (Bld) 2.0 % Normal 0-5 [facility] Comment on above: Performed By: #### L 100.0100, L501.9520, L500.4050, L501.5200, L502.0500 #### [facility] [address] [place], [address] Erythrocyte distribution width (RBC) [Ratio] 11.4 % Low 11.6-14.6 [facility] Comment on above: Performed By: #### L 100.0100, L501.9520, L500.4050, L501.5200, L502.0500 #### [facility] [address] [place], [address] Hematocrit (Bld) [Volume fraction] 46.6 % Normal 40-54 [facility] Comment on above: Performed By: #### L 100.0100, L501.9520, L500.4050, L501.5200, L502.0500 #### [facility] [address] [place], [address] Hemoglobin (Bld) [Mass/Vol] 16.4 g/dL Normal 13.0-16.5 [facility] Comment on above: Performed By: #### L 100.0100, L501.9520, L500.4050, L501.5200, L502.0500 #### [facility] [address] [place], [address] IG% 0.100 Normal 0.0-0.9 [facility] Comment on above: Result Comment: IG% - Immature Granulocytes (promyelocytes, myelocytes and metamyelocytes) > 1% indicates that a LEFT SHIFT is Present. Performed By: #### L 100.0100, L501.9520, L500.4050, L501.5200, L502.0500 #### [facility] [address] [place], [address] Lymphocytes/100 WBC (Bld) 45.9 % High 19-41 [facility] Comment on above: Performed By: #### L 100.0100, L501.9520, L500.4050, L501.5200, L502.0500 #### [facility] [address] [place], [address] MCH (RBC) [Entitic mass] 32.2 pg High 27.0-32.0 [facility] Comment on above: Performed By: #### L 100.0100, L501.9520, L500.4050, L501.5200, L502.0500 #### [facility] [address] [place], [address] MCHC (RBC) [Mass/Vol] 35.2 g/dL Normal 32-36 [facility] Comment on above: Performed By: #### L 100.0100, L501.9520, L500.4050, L501.5200, L502.0500 #### [facility] [address] [place], [address] MCV (RBC) [Entitic vol] 91.4 fL Normal 80-94 [facility] Comment on above: Performed By: #### L 100.0100, L501.9520, L500.4050, L501.5200, L502.0500 #### [facility] [address] [place], [address] Monocytes/100 WBC (Bld) 5.5 % Normal 0-10 [facility] Comment on above: Performed By: #### L 100.0100, L501.9520, L500.4050, L501.5200, L502.0500 #### [facility] [address] [place], [address] Neutrophils/100 WBC (Bld) 45.7 % Low 47-70 [facility] Comment on above: Performed By: #### L 100.0100, L501.9520, L500.4050, L501.5200, L502.0500 #### [facility] [address] [place], [address] Nucleated RBC (Bld) [#/Vol] 0 10*3/uL Normal 0-5 [facility] Comment on above: Performed By: #### L 100.0100, L501.9520, L500.4050, L501.5200, L502.0500 #### [facility] [address] [place], [address] Platelet mean volume (Bld) [Entitic vol] 10.3 fL Normal 6.2-12.0 [facility] Comment on above: Performed By: #### L 100.0100, L501.9520, L500.4050, L501.5200, L502.0500 #### [facility] [address] [place], [address] Platelets (Bld) [#/Vol] 220 10*3/uL Normal 150-450 [facility] Comment on above: Performed By: #### L 100.0100, L501.9520, L500.4050, L501.5200, L502.0500 #### [facility] [address] [place], [address] RBC (Bld) [#/Vol] 5.10 10*6/uL Normal 4.6-6.2 [facility] Comment on above: Performed By: #### L 100.0100, L501.9520, L500.4050, L501.5200, L502.0500 #### [facility] [address] [place], [address] RDW SD 38.2 fl Normal 35.1-43.9 [facility] Comment on above: Performed By: #### L 100.0100, L501.9520, L500.4050, L501.5200, L502.0500 #### [facility] [address] [place], [address] WBC (Bld) [#/Vol] 7.6 10*3/uL Normal 4.4-11.0 [facility] Comment on above: Performed By: #### L 100.0100, L501.9520, L500.4050, L501.5200, L502.0500 #### [facility] [address] [place], [address] Carbon dioxide measurementOr dered By: Prabhjotbulun Beam on 10-01-2024 CO2 [Moles/Vol] 26.0 mmol/L 21.0-32.0 [facility] Chloride measurementOrdered By: Zebulun Beam on 10-01-2024 Chloride [Moles/Vol] 103 mmol/L 98-107 [facility] Comprehensive Metabolic Prof ilon 10-01-2024 Albumin [Mass/Vol] 3.7 g/dL Normal 3.2-5.0 [facility] Comment on above: Performed By: #### L 100.0100, L501.9520, L500.4050, L501.5200, L502.0500 ####[facility] [address] [place], [address] Albumin/Globulin [Mass ratio] 0.9 {ratio} Normal 0.9-2.4 [facility] Comment on above: Performed By: #### L 100.0100, L501.9520, L500.4050, L501.5200, L502.0500 ####[facility] [address] [place], [address] ALK P 101 U/L Normal 45-117 [facility] Comment on above: Performed By: #### L 100.0100, L501.9520, L500.4050, L501.5200, L502.0500 ####[facility] [address] [place], [address] ALT [Catalytic activity/Vol] 60 U/L Normal 16-61 [facility] Comment on above: Performed By: #### L 100.0100, L501.9520, L500.4050, L501.5200, L502.0500 ####[facility] [address] [place], [address] AST [Catalytic activity/Vol] 24 U/L Normal 15-37 [facility] Comment on above: Performed By: #### L 100.0100, L501.9520, L500.4050, L501.5200, L502.0500 ####[facility] [address] [place], [address] Bilirubin [Mass/Vol] 0.70 mg/dL Normal 0.20-1.00 [facility] Comment on above: Result Comment: For patients on eltrombopag therapy, use of Dimension Crosby TBIL is not recommended. Performed By: #### L 100.0100, L501.9520, L500.4050, L501.5200, L502.0500 ####[facility] [address] [place], [address] BUN/CRE 18.5 RATIO Normal 10-20 [facility] Comment on above: Performed By: #### L 100.0100, L501.9520, L500.4050, L501.5200, L502.0500 ####[facility] [address] [place], [address] CA,Total 9.6 mg/dL Normal 8.5-10.1 [facility] Comment on above: Performed By: #### L 100.0100, L501.9520, L500.4050, L501.5200, L502.0500 ####[facility] [address] [place], [address] Chloride [Moles/Vol] 103 mmol/L Normal 98-107 [facility] Comment on above: Performed By: #### L 100.0100, L501.9520, L500.4050, L501.5200, L502.0500 ####[facility] [address] [place], [address] CO2 [Moles/Vol] 26.0 mmol/L Normal 21.0-32.0 [facility] Comment on above: Performed By: #### L 100.0100, L501.9520, L500.4050, L501.5200, L502.0500 ####[facility] [address] [place], [address] Creatinine [Mass/Vol] 0.65 mg/dL Low 0.70-1.30 [facility] Comment on above: Result Comment: The validity of the calculated GFR GFRAA in patients over 70 years has not been determined. Clinical correlation is essential. Performed By: #### L 100.0100, L501.9520, L500.4050, L501.5200, L502.0500 ####[facility] [address] [place], [address] EST GFR - AA 164 mL/min Normal >60 [facility] Comment on above: Result Comment: Afri can Vietnamese GFR Calc Performed By: #### L 100.0100, L501.9520, L500.4050, L501.5200, L502.0500 ####[facility] [address] [place], [address] GAP 5 Normal 5-15 [facility] Comment on above: Performed By: #### L 100.0100, L501.9520, L500.4050, L501.5200, L502.0500 ####[facility] [address] [place], [address] GFR/1.73 sq M.predicted among non-blacks MDRD (S/P/Bld) [Vol rate/Area] 135 mL/min/{1.73_m2} Normal >60 [facility] Comment on above: Result Comment: Non- GFR Calc Performed By: #### L 100.0100, L501.9520, L500.4050, L501.5200, L502.0500 ####[facility] [address] [place], [address] Globulin (S) [Mass/Vol] 4.1 g/dL Normal 2.2-4.2 [facility] Comment on above: Performed By: #### L 100.0100, L501.9520, L500.4050, L501.5200, L502.0500 ####[facility] [address] [place], [address] Glucose [Mass/Vol] 227 mg/dL High 74-106 [facility] Comment on above: Result Comment: Gluc ose result greater than or equal to 200 mg/dL suggests DIABETES MELLITUS per A.D.A. criteria. Performed By: #### L 100.0100, L501.9520, L500.4050, L501.5200, L502.0500 ####[facility] [address] [place], [address] Potassium [Moles/Vol] 3.8 mmol/L Normal 3.5-5.1 [facility] Comment on above: Performed By: #### L 100.0100, L501.9520, L500.4050, L501.5200, L502.0500 ####[facility] [address] [place], [address] Sodium [Moles/Vol] 135 mmol/L Low 136-145 [facility] Comment on above: Performed By: #### L 100.0100, L501.9520, L500.4050, L501.5200, L502.0500 ####[facility] [address] [place], [address] T PROT 7.8 g/dL Normal 6.4-8.2 [facility] Comment on above: Performed By: #### L 100.0100, L501.9520, L500.4050, L501.5200, L502.0500 ####[facility] [address] [place], [address] Urea nitrogen [Mass/Vol] 12 mg/dL Normal 7-18 [facility] Comment on above: Performed By: #### L 100.0100, L501.9520, L500.4050, L501.5200, L502.0500 ####[facility] [address] [place], [address] Eosinophil percentageOrdered By: Zebulun Beam on 10-01-2024 Eosinophils/100 WBC (Bld) 2.0 % 0-5 [facility] Erythrocyte distribution wid th (RBC) [Ratio]Ordered By: Zebulun Beam on 10-01-2024 Erythrocyte distribution width (RBC) [Entitic vol] 38.2 fL 35.1-43.9 [facility] Erythrocyte distribution wid th ratioOrdered By: Zebulun Beam on 10-01-2024 Erythrocyte distribution width (RBC) [Ratio] 11.4 % Low 11.6-14.6 [facility] Estimated glomerular filtrat ion rate (GFR) AmericanOrdered By: Colt Abad on 10-01-2024 Estimated GFR (MDRD) Amer 164 mL/min >60 [facility] Comment on above: GFR Calc Glomerular filtration rate ( GFR) estimationOrdered By: Colt Abad on 10-01-2024 Estimated GFR (MDRD) Non-Af Amer 135 mL/min >60 [facility] Comment on above: Non- GFR Calc Glucose measurementOrdered B y: Colt Abad on 10-01-2024 Glucose [Mass/Vol] 227 mg/dL High 74-106 [facility] Comment on above: Glucose result great er than or equal to 200 mg/dLsuggests DIABETES MELLITUS per A.D.A. criteria. Hematocrit Auto (Bld) [Volum e fraction]Ordered By: Colt Abad on 10-01-2024 Hematocrit (Bld) [Volume fraction] 46.6 % 40-54 [facility] Hemoglobin measurementOrdere d By: Colt Abad on 10-01-2024 Hemoglobin (Bld) [Mass/Vol] 16.4 g/dL 13.0-16.5 [facility] Immature granulocytes/100 WB C Auto (Bld)Ordered By: khushbu Abad on 10-01-2024 Immature granulocytes/100 WBC (Bld) 0.100 % 0.0-0.9 [facility] Comment on above: IG% - Immature Granu locytes (promyelocytes, myelocytes and metamyelocytes) > 1% indicates that a LEFT SHIFT is Present. Laboratory - Chemistry and C hemistry - challengeOrdered By: Colt Abad on 10-01-2024 AST [Catalytic activity/Vol] 24 U/L 15-37 [facility] Lymphocytes Auto (Unsp spec) [#/Vol]Ordered By: [facility] on 10-01-2024 Lymphocytes (Bld) [#/Vol] 3.50 10*3/uL 0.83-4.51 [facility] Lymphocytes/100 WBC Auto (Un sp spec)Ordered By: Colt Abad on 10-01-2024 Lymphocytes/100 WBC (Bld) 45.9 % High 19-41 [facility] MCV (mean corpuscular volume ) determinationOrdered By: Zebulun Beam on 10-01-2024 MCV (RBC) [Entitic vol] 91.4 fL 80-94 [facility] Magnesiumon 10-01-2024 Magnesium [Mass/Vol] 2.1 mg/dL Normal 1.6-2.6 [facility] Comment on above: Performed By: #### L 100.0100, L501.9520, L500.4050, L501.5200, L502.0500 ####[facility] [address] [place], [address] Magnesium measurementOrdered By: Zebulun Beam on 10-01-2024 Magnesium [Mass/Vol] 2.1 mg/dL 1.6-2.6 [facility] Mean corpuscular hemoglobin (MCH) determinationOrdered By: Zebulun Beam on 10-01-2024 MCH (RBC) [Entitic mass] 32.2 pg High 27.0-32.0 [facility] Mean corpuscular hemoglobin concentration (MCHC) determinationOrdered By: Zebulun Beam on 10-01-2024 MCHC (RBC) [Mass/Vol] 35.2 g/dL 32-36 [facility] Mean platelet volume determi nationOrdered By: Zebulun Beam on 10-01-2024 Platelet mean volume (Bld) [Entitic vol] 10.3 fL 6.2-12.0 [facility] Microalbumin,Random Urineon 10-01-2024 MICROALBUMIN,UR 58.8 mg/L Normal NO RANGE EST. [facility] Comment on above: Performed By: #### L 100.0100, L501.9520, L500.4050, L501.5200, L502.0500 ####[facility] [address] [place], [address] Monocyte percentageOrdered B y: Zebulun Beam on 10-01-2024 Monocytes/100 WBC (Bld) 5.5 % 0-10 [facility] Neutrophil percentageOrdered By: Colt Beam on 10-01-2024 Neutrophils/100 WBC (Bld) 45.7 % Low 47-70 [facility] Nucleated red blood cell per centageOrdered By: Colt Beam on 10-01-2024 Nucleated RBC/100 WBC (Bld) [Ratio] 0 % 0-5 [facility] Platelet countOrdered By: Prabhjot Abad on 10-01-2024 Platelets (Bld) [#/Vol] 220 10*3/uL 150-450 [facility] Potassium measurementOrdered By: Colt Beam on 10-01-2024 Potassium [Moles/Vol] 3.8 mmol/L 3.5-5.1 [facility] RBC Auto (Bld) [#/Vol]Ordere d By: Colt Beam on 10-01-2024 RBC (Bld) [#/Vol] 5.10 10*6/uL 4.6-6.2 [facility] Random urine microalbumin me asurementOrdered By: Colt Abad on 10-01-2024 Urine Random Microalbumin 58.8 mg/L NO RANGE EST. [facility] Serum anion gap measurementO rdered By: Colt Abad on 10-01-2024 Anion gap [Moles/Vol] 5 mmol/L 5-15 [facility] Serum globulin measurementOr dered By: Colt Abad on 10-01-2024 Globulin (S) [Mass/Vol] 4.1 g/dL 2.2-4.2 [facility] Serum or plasma alanine coughlin otransferase (ALT) measurementOrdered By: Nattyluarti Beam on 10-01-2024 ALT [Catalytic activity/Vol] 60 U/L 16-61 [facility] Serum or plasma albumin michelle urement (mass/volume)Ordered By: Colt Beam on 10-01-2024 Albumin [Mass/Vol] 3.7 g/dL 3.2-5.0 [facility] Serum or plasma alkaline sujatha sphatase measurementOrdered By: Colt Beam on 10-01-2024 ALP [Catalytic activity/Vol] 101 U/L 45-117 [facility] Serum or plasma calcium michelle urement (mass/volume)Ordered By: Colt Abad on 10-01-2024 Calcium [Mass/Vol] 9.6 mg/dL 8.5-10.1 [facility] Serum or plasma creatinine m easurement (mass/volume)Ordered By: Colt Abad on 10-01-2024 Creatinine [Mass/Vol] 0.65 mg/dL Low 0.70-1.30 [facility] Comment on above: The validity of the calculated GFR & GFRAA in patients over 70 years has not been determined. Clinical correlation is essential. Serum or plasma urea nitroge n measurement (mass/volume)Ordered By: Colt Abad on 10-01-2024 Urea nitrogen [Mass/Vol] 12 mg/dL 7-18 [facility] Sodium levelOrdered By: Natty Abad on 10-01-2024 Sodium [Moles/Vol] 135 mmol/L Low 136-145 [facility] TSH QnOrdered By: Colt Gamez am on 10-01-2024 Thyroid Stimulating Hormone (TSH) 1.870 uIU/mL 0.358-3.740 [facility] Thyroid Stim Hormone (TSH)on 10-01-2024 TSH 1.870 uIU/mL Normal 0.358-3.740 [facility] Comment on above: Performed By: #### L 100.0100, L501.9520, L500.4050, L501.5200, L502.0500 ####[facility] [id number] [place], [place], [id number] Total proteinOrdered By: Roberto Abad on 10-01-2024 Protein [Mass/Vol] 7.8 g/dL 6.4-8.2 [facility] White blood cell (WBC) count Ordered By: Colt Abad on 10-01-2024 WBC (Bld) [#/Vol] 7.6 10*3/uL 4.4-11.0 [facility] Basic Metabolic Profile (BMP )on 09-08-2024 BUN/CRE 18.6 RATIO Normal 10-20 [facility] Comment on above: Performed By: #### L 500.2500, L100.0100 ####[facility] [address] [place], [address] CA,Total 9.1 mg/dL Normal 8.5-10.1 [facility] Comment on above: Performed By: #### L 500.2500, L100.0100 ####[facility] [address] [place], [address] Chloride [Moles/Vol] 96 mmol/L Low 98-107 [facility] Comment on above: Performed By: #### L 500.2500, L100.0100 ####[facility] [address] [place], [address] CO2 [Moles/Vol] 26.0 mmol/L Normal 21.0-32.0 [facility] Comment on above: Performed By: #### L 500.2500, L100.0100 ####[facility] [address] [place], [address] Creatinine [Mass/Vol] 0.97 mg/dL Normal 0.70-1.30 [facility] Comment on above: Result Comment: The validity of the calculated GFR GFRAA in patients over 70 years has not been determined. Clinical correlation is essential. Performed By: #### L 500.2500, L100.0100 ####[facility] [address] [place], [address] ECRCL 88.24 ml/min Normal [facility] Comment on above: Performed By: #### L 500.2500, L100.0100 ####[facility] [address] [place], [address] EST GFR - AA 104 mL/min Normal >60 [facility] Comment on above: Result Comment: Afri can Vietnamese GFR Calc Performed By: #### L 500.2500, L100.0100 ####[facility] [address] [place], [address] GAP 9 Normal 5-15 [facility] Comment on above: Performed By: #### L 500.2500, L100.0100 ####[facility] [address] [place], [address] GFR/1.73 sq M.predicted among non-blacks MDRD (S/P/Bld) [Vol rate/Area] 86 mL/min/{1.73_m2} Normal >60 [facility] Comment on above: Result Comment: Non- GFR Calc Performed By: #### L 500.2500, L100.0100 ####[facility] [address] [place], [address] Glucose [Mass/Vol] 572 mg/dL Invalid Interpretation Code 74-106 [facility] Comment on above: Result Comment: Crit ical Result(s) Called at: 15:54:17 09/08/2024 by: DELILAH BHATIA. Results read back by Ariane Oquendo Glucose result greater than or equal to 200 mg/dL suggests DIABETES MELLITUS per A.D.A. criteria. Performed By: #### L 500.2500, L100.0100 ####[facility] [address] [place], [address] Potassium [Moles/Vol] 4.0 mmol/L Normal 3.5-5.1 [facility] Comment on above: Result Comment: Slig ht Hemolysis, Result may be falsely increased. Performed By: #### L 500.2500, L100.0100 ####[facility] [address] [place], [address] Sodium [Moles/Vol] 131 mmol/L Low 136-145 [facility] Comment on above: Performed By: #### L 500.2500, L100.0100 ####[facility] [address] [place], [address] Urea nitrogen [Mass/Vol] 18 mg/dL Normal 7-18 [facility] Comment on above: Performed By: #### L 500.2500, L100.0100 ####[facility] [address] [place], [address] Bedside Glucoseon 09-08-2024 FINGERSTICK GLU 323 mg/dL High 74-106 [facility] Comment on above: Result Comment: STACIE GEMENT OF PATIENT CARE PER NURSING PROTOCOL Performed By: #### L 501.080 #### [facility] [address] [place], [address] FINGERSTICK GLU > 500 Invalid Interpretation Code 74-106 [facility] Comment on above: Result Comment: STACIE GEMENT OF PATIENT CARE PER NURSING PROTOCOL Performed By: #### L 501.080 #### [facility] [address] [place], [address] CBC W/Diff, Automatedon 08-26 Absolute Lymph 3.40 X10 3/uL Normal 0.83-4.51 [facility] Comment on above: Performed By: #### L 500.2500, L100.0100 ####[facility] [address] [place], [address] Absolute Neut 5.5 X10 3/uL Normal 2.0-7.7 [facility] Comment on above: Performed By: #### L 500.2500, L100.0100 ####[facility] [address] [place], [address] Basophils/100 WBC (Bld) 0.5 % Normal 0-1 [facility] Comment on above: Performed By: #### L 500.2500, L100.0100 ####[facility] [address] [place], [address] Eosinophils/100 WBC (Bld) 1.4 % Normal 0-5 [facility] Comment on above: Performed By: #### L 500.2500, L100.0100 ####[facility] [address] [place], [address] Erythrocyte distribution width (RBC) [Ratio] 11.1 % Low 11.6-14.6 [facility] Comment on above: Performed By: #### L 500.2500, L100.0100 ####[facility] [address] [place], [address] Hematocrit (Bld) [Volume fraction] 44.0 % Normal 40-54 [facility] Comment on above: Performed By: #### L 500.2500, L100.0100 ####[facility] [address] [place], [address] Hemoglobin (Bld) [Mass/Vol] 16.1 g/dL Normal 13.0-16.5 [facility] Comment on above: Performed By: #### L 500.2500, L100.0100 ####[facility] [address] [place], [address] IG% 0.200 Normal 0.0-0.9 [facility] Comment on above: Result Comment: IG% - Immature Granulocytes (promyelocytes, myelocytes and metamyelocytes) > 1% indicates that a LEFT SHIFT is Present. Performed By: #### L 500.2500, L100.0100 ####[facility] [address] [place], [address] Lymphocytes/100 WBC (Bld) 34.7 % Normal 19-41 [facility] Comment on above: Performed By: #### L 500.2500, L100.0100 ####[facility] [address] [place], [address] MCH (RBC) [Entitic mass] 32.8 pg High 27.0-32.0 [facility] Comment on above: Performed By: #### L 500.2500, L100.0100 ####[facility] [address] [place], [address] MCHC (RBC) [Mass/Vol] 36.6 g/dL High 32-36 [facility] Comment on above: Performed By: #### L 500.2500, L100.0100 ####[facility] [address] [place], [address] MCV (RBC) [Entitic vol] 89.6 fL Normal 80-94 [facility] Comment on above: Performed By: #### L 500.2500, L100.0100 ####[facility] [address] [place], [address] Monocytes/100 WBC (Bld) 6.7 % Normal 0-10 [facility] Comment on above: Performed By: #### L 500.2500, L100.0100 ####[facility] [address] [place], [address] Neutrophils/100 WBC (Bld) 56.5 % Normal 47-70 [facility] Comment on above: Performed By: #### L 500.2500, L100.0100 ####[facility] [address] [place], [address] Nucleated RBC (Bld) [#/Vol] 0 10*3/uL Normal 0-5 [facility] Comment on above: Performed By: #### L 500.2500, L100.0100 ####[facility] [address] [place], [address] Platelet mean volume (Bld) [Entitic vol] 10.9 fL Normal 6.2-12.0 [facility] Comment on above: Performed By: #### L 500.2500, L100.0100 ####[facility] [address] [place], [address] Platelets (Bld) [#/Vol] 228 10*3/uL Normal 150-450 [facility] Comment on above: Performed By: #### L 500.2500, L100.0100 ####[facility] [address] [place], [address] RBC (Bld) [#/Vol] 4.91 10*6/uL Normal 4.6-6.2 [facility] Comment on above: Performed By: #### L 500.2500, L100.0100 ####[facility] [address] [place], [address] RDW SD 35.8 fl Normal 35.1-43.9 [facility] Comment on above: Performed By: #### L 500.2500, L100.0100 ####[facility] [address] [place], [address] WBC (Bld) [#/Vol] 9.8 10*3/uL Normal 4.4-11.0 [facility] Comment on above: Performed By: #### L 500.2500, L100.0100 ####[facility] [address] [place], [address] Emergency Department Summary on 09-08-2024 Emergency Department Summary [facility] Medical Records Department [address] [place] [address] Emergency Department Summary 09/08/24 MR#: [id number] Acct: [id number] Name: BENJY GUPTA V Rep #: [id number] : 1970 53 From: Aleida GARCIA PCP: [...] He denies fevers, chills, nausea, and vomiting. [facility] Medical History Borderline hypertension Diabetes Home [...] no keto (more content not included)... Normal [facility] Urinalysis, Completeon 09-08 BACTERIA RARE Normal None Seen [facility] Comment on above: Order Comment: SHYAM CTOR TO SPECIFY Performed By: #### L 400.0001 #### [facility] [address] [place], [place], [id number] RBC 0-5 SEEN Normal 0-5 [facility] Comment on above: Order Comment: SHYAM CTOR TO SPECIFY Performed By: #### L 400.0001 #### [facility] [address] [place], [address] EPI,SQUAMOUS 0 SEEN Normal 0-5 [facility] Comment on above: Order Comment: COLLE CTOR TO SPECIFY Performed By: #### L 400.0001 #### [facility] [address] [place], [address] Mucus Ql (Urine sed) 0 SEEN Normal [facility] Comment on above: Order Comment: COLLE CTOR TO SPECIFY Performed By: #### L 400.0001 #### [facility] [address] [place], [address] WBC 0 SEEN Normal 0-5 [facility] Comment on above: Order Comment: SHYAM CTOR TO SPECIFY Performed By: #### L 400.0001 #### [facility] [address] [place], [address] CNOVon 09-07-2024 CNOV Office Visit (UROLMD ) BENJY GUPTA ([id number]) 1970 M Date Time Provider Department 09/07/24 9:00 AM HERON LYONS UROLMPartha During your visit today, we recorded the following information about you: Weight Height 82.8 kg 1.702 m Heron Lyons MD 09/07/2024 9:23 AM Signed [facility] UROLOGY ESTABLISHED PATIENT [...] organic origin [N52.9] Order(s):US SCROTUM AND CONTENTS [[id number]] Order #: [id number] FUTURE US DOPPLER COMPLETE [[id number]] Order #: [id number] FUTURE oxaprozin (DAYPRO) 600 mg tabletTake 2 [...] 5 d (more content not included)... Normal [facility] CNOVon 09-30-2023 CNOV Office Visit (UROLMD ) BENJY GUPTA ([id number]) 1970 M Date Time Provider Department 09/30/23 10:30 AM HERON LYONS UROABNER During your visit today, we recorded the following information about you: Pulse Respiration Blood pressure Weight 77/minute 14/minute 152/96 86.2 kg Height 1.702 m Heron Lyons MD 09/30/2023 11:27 AM Signed Benjy Gupta [id number] 09/30/2023 UNIVERSAL PROTOCOL / SAFETY CHECKLIST Procedure [...] following numbers with any questions or concerns: [place]?s Offices: #[phone], and also #[phone] [facility] patients: [phone] M-F 8am-5pm, after hours [phone] ACTIVITIES Avoid strenuous physical exercise and heavy [...] small amoun (more content not included)... Normal [facility] SURGICAL PATHOLOGYon CASE REPORT Normal [facility] Comment on above: Order Comment: Speci men Type: TISSUE SPECIMEN Ordering Facility: [facility] Address: [address] [place] [address] Result Comment: Surg [facility] Pathology Report Case: [id number] Authorizing Provider: Heron Lyons MD Collected: 09/30/2023 11:28 AM Ordering Location: Urology Received: 09/30/2023 03:58 PM Pathologist: Faustino Lopez MD Specimens: A) - VAS DEFERENS LEFT, 1 B) - VAS DEFERENS RIGHT, 1 Performed By: #### S #### [facility] CLIA [id number] [address] [facility] [address] [place] [address] [place] CLINICAL HISTORY ENCOUNTER FOR VASECTOMY Normal [facility] Comment on above: Order Comment: Speci men Type: TISSUE SPECIMEN Ordering Facility: [facility] Address: [address] [place] [address] Performed By: #### S #### [facility] CLIA [id number] [address] [place] [address] [place] FINAL DIAGNOSIS Normal [facility] Comment on above: Order Comment: Speci men Type: TISSUE SPECIMEN Ordering Facility: [facility] Address: [address] [place] [address] Result Comment: A. V as deferens, left, vasectomy: - Complete cross-section of vas deferens. B. Vas deferens, right, vasectomy: - Complete cross-section of vas deferens. Performed By: #### S #### [facility] CLIA [id number] [address] [place] [address] [place] FINAL PERFORMING LAB Normal [place] Comment on above: Order Comment: Speci men Type: TISSUE SPECIMEN Ordering Facility: [facility] Address: [address] [place] [address] Result Comment: Diag nostic interpretation performed at [facility], [address] [place] [address] CLIA# [id number] Budget Technician: Clarence Schumacher M.D. Performed By: #### S #### [facility] CLIA [id number] [address] [place] [address] [place] GROSS DESCRIPTION Normal [facility] Comment on above: Order Comment: Speci men Type: TISSUE SPECIMEN Ordering Facility: [facility] Address: [address] [place] [address] Result Comment: A. V DEFERENS LEFT Received [...] 2023 10:16 AM Gross examination performed at [facility], [address] [place], [place] [address]e., [place] [address] Performed By: #### S #### [facility] CLIA [id number] [address] [place] [address] [id number] Absolute lymphocyte countOrd ered By: Jayson Reyes on 07-23-2023 Lymphocytes Auto (Unsp spec) [#/Vol] 3.01 10*3/uL 0.83-4.51 [facility] Basophil percentageOrdered B y: Jayson Reyes on 07-23-2023 Basophil percentage 0 SEEN /hpf 0-5 [facility] Basophils/100 WBC (Bld) 0.6 % 0-1 [facility] Chloride [Moles/Vol] 96 mmol/L 98-107 [facility] Eosinophils/100 WBC (Bld) 2.9 % 0-5 [facility] Glucose [Mass/Vol] 535 mg/dL 74-106 [facility] Comment on above: Critical Result(s) C alled at: 01:18:08 07/23/2023 by: Isaias Connell. dragan KWON (RN) (ED) Results read back by same.Glucose result greater than or equal to 200 mg/dLsuggests DIABETES MELLITUS per A.D.A. criteria. Neutrophils (Bld) [#/Vol] 4.0 10*3/uL 2.0-7.7 [facility] Neutrophils/100 WBC (Bld) 51.6 % 47-70 [facility] Potassium [Moles/Vol] 5.0 mmol/L 3.5-5.1 [facility] Comment on above: Moderate Hemolysis, Result may be falsely increased. Sodium [Moles/Vol] 130 mmol/L 136-145 [facility] WBC (Bld) [#/Vol] 7.8 10*3/uL 4.4-11.0 [facility] Bilirubin Test strip Ql (U)O rdered By: Jayson Reyes on 07-23-2023 Bilirubin Ql (U) Negative Negative [facility] Blood erythrocytes count (nu mber/volume)Ordered By: Jayson Reyes on 07-23-2023 RBC (Bld) [#/Vol] 5.34 10*6/uL 4.6-6.2 [facility] Blood hemoglobin measurement (mass/volume)Ordered By: Jayson Reyes on 07-23-2023 Hemoglobin (Bld) [Mass/Vol] 16.9 g/dL 13.0-16.5 [facility] Blood lymphocytes/100 leukoc ytesOrdered By: Jayson Reyes on 07-23-2023 Lymphocytes/100 WBC (Bld) 38.5 % 19-41 [facility] Blood monocytes/100 leukocyt esOrdered By: Jayson Reyes on 07-23-2023 Monocytes/100 WBC (Bld) 6.3 % 0-10 [facility] Blood platelet mean volumeOr dered By: Jayson Reyes on 07-23-2023 Platelet mean volume (Bld) [Entitic vol] 11.3 fL 6.2-12.0 [facility] Determination of erythrocyte mean corpuscular volume (MCV)Ordered By: Jayson Reyes on 07-23-2023 MCV (RBC) [Entitic vol] 91.0 fL 80-94 [facility] Glucose Glucometer (BldC) [M ass/Vol]Ordered By: Jayson Reyes on 07-23-2023 Glucose [Mass/Vol] 398 mg/dL 74-106 [facility] Comment on above: MANAGEMENT OF PATIEN T CARE PER NURSING PROTOCOL Hematocrit Auto (Bld) [Volum e fraction]Ordered By: Jayson Reyes on 07-23-2023 Hematocrit (Bld) [Volume fraction] 48.6 % 40-54 [facility] Ketones Test strip Ql (U)Ord ered By: Jayson Reyes on 07-23-2023 Ketones Ql (U) Negative Negative [facility] - Chemistry and C hemistry - challengeOrdered By: Jayson Reyes on 07-23-2023 CO2 [Moles/Vol] 28.0 mmol/L 21.0-32.0 [facility] Urea nitrogen/Creatinine [Mass ratio] 14.4 mg/mg 10-20 [facility] - Hematology and Cell countsOrdered By: Jayson Reyes on 07-23-2023 Erythrocyte distribution width (RBC) [Entitic vol] 36.0 fL 35.1-43.9 [facility] Erythrocyte distribution width (RBC) [Ratio] 10.7 % 11.6-14.6 [facility] Immature granulocytes/100 WBC (Bld) 0.100 % 0.0-0.9 [facility] Comment on above: IG% - Immature Granu locytes (promyelocytes, myelocytes and metamyelocytes) > 1% indicates that a LEFT SHIFT is Present. MCH (RBC) [Entitic mass] 31.6 pg 27.0-32.0 [facility] Nucleated RBC/100 WBC (Bld) [Ratio] 0 % 0-5 [facility] MCHC Auto (RBC) [Mass/Vol]Or dered By: Jayson Reyes on 07-23-2023 MCHC (RBC) [Mass/Vol] 34.8 g/dL 32-36 [facility] Mucus LM Ql (Urine sed)Order ed By: Jayson Reyes on 07-23-2023 Mucus Ql (Urine sed) 0 SEEN /hpf [facility] Nitrite Test strip Ql (U)Ord ered By: Jayson Reyes on 07-23-2023 Nitrite Ql (U) Negative Negative [facility] No Panel InformationOrdered By: Jayson Reyes on 07-23-2023 Estimated Creatinine Clearance Calc 71.13 ml/min [facility] Estimated GFR (MDRD) Amer 89 mL/min >60 [facility] Comment on above: GFR Calc Estimated GFR (MDRD) Non-Af Amer 73 mL/min >60 [facility] Comment on above: Non- GFR Calc Platelets bldOrdered By: Amaris Reyes on 07-23-2023 Platelets (Bld) [#/Vol] 181 10*3/uL 150-450 [facility] Protein Test strip Ql (U)Ord ered By: Jayson Reyes on 07-23-2023 Protein Ql (U) Negative Negative [facility] Serum or plasma calcium michelle urement (mass/volume)Ordered By: Jayson Reyes on 07-23-2023 Calcium [Mass/Vol] 9.7 mg/dL 8.5-10.1 [facility] Serum or plasma creatinine m easurement (mass/volume)Ordered By: Jayson Reyes on 07-23-2023 Creatinine [Mass/Vol] 1.11 mg/dL 0.70-1.30 [facility] Comment on above: The validity of the calculated GFR & GFRAA in patients over 70 years has not been determined. Clinical correlation is essential. Serum or plasma urea nitroge n measurement (mass/volume)Ordered By: Jayson Reyes on 07-23-2023 Urea nitrogen [Mass/Vol] 16 mg/dL 7-18 [facility] Squamous epithelial cells de tection in urine sediment by light microscopyOrdered By: Jayson Reyes on 07-23-2023 Epithelial cells.squamous LM Ql (Urine sed) 0 SEEN /hpf 0-5 [facility] Thin prep Papanicolaou smear with manual screeningOrdered By: Jayson Reyes on 07-23-2023 Thin prep Papanicolaou smear with manual screening 6 5-15 [facility] Urine blood detectionOrdered By: Jayson Reyes on 07-23-2023 RBC Ql (U) Negative Negative [facility] RBC Ql (U) 0 SEEN /hpf 0-5 [facility] Urine clarityOrdered By: Amaris Reyes on 07-23-2023 Clarity (U) Clear Clear [facility] Urine color determinationOrd ered By: Jayson Reyes on 07-23-2023 Color (U) Yellow Yellow [facility] Urine glucose detectionOrder ed By: Jayson Reyes on 07-23-2023 Glucose Ql (U) 1000 mg/dl Normal [facility] Urine leukocyte esterase det ection by dipstickOrdered By: Jayson Reyes on 07-23-2023 Leukocyte esterase Test strip Ql (U) Negative Negative [facility] Urine pHOrdered By: Jayson Reyes on 07-23-2023 pH (U) 6.0 [pH] 5.0 - 8.0 [facility] Urine sediment bacteria coun t by microscopy (number/high power field)Ordered By: Jayson Reyes on 07-23-2023 Bacteria LM.HPF (Urine sed) [#/Area] 0 /[HPF] None Seen [facility] Urine specific gravity measu rementOrdered By: Jayson Reyes on 07-23-2023 Specific gravity (U) [Rel density] 1.015 1.002-1.030 [facility] Urobilinogen Auto test strip Ql (U)Ordered By: Jayson Reyes on 07-23-2023 Urobilinogen Ql (U) Normal mg/dl Normal [facility] Basophil percentageOrdered B y: Dr. Calderon on 02-28-2023 Basophil percentage 0 SEEN /hpf 0-5 [facility] Bilirubin Test strip Ql (U)O rdered By: Dr. Calderon on 02-28-2023 Bilirubin Ql (U) Negative Negative [facility] Glucose Glucometer (BldC) [M ass/Vol]Ordered By: Dr. Calderon on 02-28-2023 Glucose [Mass/Vol] 194 mg/dL 74-106 [facility] Comment on above: MANAGEMENT OF PATIEN T CARE PER NURSING PROTOCOL Ketones Test strip Ql (U)Ord ered By: Dr. Calderon on 02-28-2023 Ketones Ql (U) Negative Negative [facility] Mucus LM Ql (Urine sed)Order ed By: Dr. Calderon on 02-28-2023 Mucus Ql (Urine sed) 0 SEEN /hpf [facility] Nitrite Test strip Ql (U)Ord ered By: Dr. Calderon on 02-28-2023 Nitrite Ql (U) Negative Negative [facility] Protein Test strip Ql (U)Ord ered By: Dr. Calderon on 02-28-2023 Protein Ql (U) Negative Negative [facility] Squamous epithelial cells de tection in urine sediment by light microscopyOrdered By: Dr. Calderon on 02-28-2023 Epithelial cells.squamous LM Ql (Urine sed) 0 SEEN /hpf 0-5 [facility] Urine blood detectionOrdered By: Dr. Calderon on 02-28-2023 RBC Ql (U) Negative Negative [facility] RBC Ql (U) 0 SEEN /hpf 0-5 [facility] Urine clarityOrdered By: Dr. Calderon on 02-28-2023 Clarity (U) Clear Clear [facility] Urine color determinationOrd ered By: Dr. Calderon on 02-28-2023 Color (U) Yellow Yellow [facility] Urine glucose detectionOrder ed By: Dr. Calderon on 02-28-2023 Glucose Ql (U) 100 mg/dl Normal [facility] Urine leukocyte esterase det ection by dipstickOrdered By: Dr. Calderon on 02-28-2023 Leukocyte esterase Test strip Ql (U) Negative Negative [facility] Urine pHOrdered By: Dr. Ten pope on 02-28-2023 pH (U) 7.0 [pH] 5.0 - 8.0 [facility] Urine sediment bacteria coun t by microscopy (number/high power field)Ordered By: Dr. Calderon on 02-28-2023 Bacteria LM.HPF (Urine sed) [#/Area] 0 /[HPF] None Seen [facility] Urine specific gravity measu rementOrdered By: Dr. Calderon on 02-28-2023 Specific gravity (U) [Rel density] 1.005 1.002-1.030 [facility] Urobilinogen Auto test strip Ql (U)Ordered By: Dr. Calderon on 02-28-2023 Urobilinogen Ql (U) Normal mg/dl Normal [facility] Absolute lymphocyte countOrd ered By: Dr. Calderon on 02-27-2023 Lymphocytes Auto (Unsp spec) [#/Vol] 2.66 10*3/uL 0.83-4.51 [facility] Basophil percentageOrdered B y: Dr. Calderon on 02-27-2023 Basophils/100 WBC (Bld) 0.9 % 0-1 [facility] Chloride [Moles/Vol] 104 mmol/L 98-107 [facility] Eosinophils/100 WBC (Bld) 5.3 % 0-5 [facility] Glucose [Mass/Vol] 389 mg/dL 74-106 [facility] Comment on above: Glucose result great er than or equal to 200 mg/dLsuggests DIABETES MELLITUS per A.D.A. criteria. Neutrophils (Bld) [#/Vol] 2.9 10*3/uL 2.0-7.7 [facility] Neutrophils/100 WBC (Bld) 44.9 % 47-70 [facility] Potassium [Moles/Vol] 4.4 mmol/L 3.5-5.1 [facility] Sodium [Moles/Vol] 135 mmol/L 136-145 [facility] WBC (Bld) [#/Vol] 6.6 10*3/uL 4.4-11.0 [facility] Blood erythrocytes count (nu mber/volume)Ordered By: Dr. Calderon on 02-27-2023 RBC (Bld) [#/Vol] 4.93 10*6/uL 4.6-6.2 [facility] Blood hemoglobin measurement (mass/volume)Ordered By: Dr. Calderon on 02-27-2023 Hemoglobin (Bld) [Mass/Vol] 15.8 g/dL 13.0-16.5 [facility] Blood lymphocytes/100 leukoc ytesOrdered By: Dr. Calderon on 02-27-2023 Lymphocytes/100 WBC (Bld) 40.5 % 19-41 [facility] Blood monocytes/100 leukocyt esOrdered By: Dr. Calderon on 02-27-2023 Monocytes/100 WBC (Bld) 7.2 % 0-10 [facility] Blood platelet mean volumeOr dered By: Dr. Calderon on 02-27-2023 Platelet mean volume (Bld) [Entitic vol] 11.2 fL 6.2-12.0 [facility] Determination of erythrocyte mean corpuscular volume (MCV)Ordered By: Dr. Calderon on 02-27-2023 MCV (RBC) [Entitic vol] 95.3 fL 80-94 [facility] Hematocrit Auto (Bld) [Volum e fraction]Ordered By: Dr. Calderon on 02-27-2023 Hematocrit (Bld) [Volume fraction] 47.0 % 40-54 [facility] - Chemistry and C hemistry - challengeOrdered By: Dr. Calderon on 02-27-2023 CO2 [Moles/Vol] 24.0 mmol/L 21.0-32.0 [facility] Urea nitrogen/Creatinine [Mass ratio] 12.4 mg/mg 10-20 [facility] - Hematology and Cell countsOrdered By: Dr. Calderon on 02-27-2023 Erythrocyte distribution width (RBC) [Entitic vol] 39.8 fL 35.1-43.9 [facility] Erythrocyte distribution width (RBC) [Ratio] 11.3 % 11.6-14.6 [facility] Immature granulocytes/100 WBC (Bld) 1.200 % 0.0-0.9 [facility] Comment on above: IG% - Immature Granu locytes (promyelocytes, myelocytes and metamyelocytes) > 1% indicates that a LEFT SHIFT is Present. MCH (RBC) [Entitic mass] 32.0 pg 27.0-32.0 [facility] Nucleated RBC/100 WBC (Bld) [Ratio] 0 % 0-5 [facility] MCHC Auto (RBC) [Mass/Vol]Or dered By: Dr. Calderon on 02-27-2023 MCHC (RBC) [Mass/Vol] 33.6 g/dL 32-36 [facility] No Panel InformationOrdered By: Dr. Calderon on 02-27-2023 Estimated Creatinine Clearance Calc 88.71 ml/min [facility] Estimated GFR (MDRD) Amer 115 mL/min >60 [facility] Comment on above: GFR Calc Estimated GFR (MDRD) Non-Af Amer 95 mL/min >60 [facility] Comment on above: Non- GFR Calc Platelets bldOrdered By: Dr. Calderon on 02-27-2023 Platelets (Bld) [#/Vol] 182 10*3/uL 150-450 [facility] Serum or plasma calcium michelle urement (mass/volume)Ordered By: Dr. Calderon on 02-27-2023 Calcium [Mass/Vol] 8.6 mg/dL 8.5-10.1 [facility] Serum or plasma creatinine m easurement (mass/volume)Ordered By: Dr. Calderon on 02-27-2023 Creatinine [Mass/Vol] 0.89 mg/dL 0.70-1.30 [facility] Comment on above: The validity of the calculated GFR & GFRAA in patients over 70 years has not been determined. Clinical correlation is essential. Serum or plasma urea nitroge n measurement (mass/volume)Ordered By: Dr. Calderon on 02-27-2023 Urea nitrogen [Mass/Vol] 11 mg/dL 7-18 [facility] Thin prep Papanicolaou smear with manual screeningOrdered By: Dr. Calderon on 02-27-2023 Thin prep Papanicolaou smear with manual screening 7 5-15 [facility] LABORATORYOrdered By: Elina mendiola on 10-08-2022 Glucose [Mass/Vol] 138 mg/dL High 70 - 110 mg/dL [facility] Work Phone: HbA1c (Bld) [Mass fraction] 7.3 % [facility] Work Phone: Lab Performing Location [facility] Work Phone: LABORATORYOrdered By: Elina mendiola on 04-06-2022 Glucose [Mass/Vol] 153 mg/dL High 70 - 110 mg/dL [facility] Work Phone: HbA1c (Bld) [Mass fraction] 6.2 % [facility] Work Phone: Lab Performing Location [facility] Work Phone: LABORATORYOrdered By: Elina mendiola on 10-16-2021 Glucose [Mass/Vol] 128 mg/dL High 70 - 110 mg/dL [facility] Work Phone: HbA1c (Bld) [Mass fraction] 6.2 % [facility] Work Phone: Lab Performing Location [facility] Work Phone: Vital Signs Date Time Vital Sign Value Performing Clinician Arely malloy 01-17-2025 16:37-0400 Body height 167.64 cm Gage Sanchez NP-C Work Phone: [facility] 01-17-2025 16:37-0400 Body mass index (BMI) [Ratio] 28.4 kg/m2 Gage Sanchez NP-C Work Phone: [facility] 01-17-2025 16:37-0400 Body temperature 98.9 [degF] Gage Sanchez NP-C Work Phone: [phone] [place] [address] 01-17-2025 16:37-0400 Body weight 79.94 kg Gage Sanchez IT SECURITY MANAGER-C Work Phone: 0([phone] [place] [address] 01-17-2025 16:37-0400 Diastolic blood pressure 94 mm[Hg] Gage Sanchez IT SECURITY MANAGER-C Work Phone: [phone] [place] [address] 01-17-2025 16:37-0400 Heart rate 72 /min Gage Sanchez IT SECURITY MANAGER-C Work Phone: [phone] [place] [address] 01-17-2025 16:37-0400 Respiratory rate 18 /min Gage Sanchez IT SECURITY MANAGER-C Work Phone: 3([phone] [place] [address] 01-17-2025 16:37-0400 SaO2% (BldA) [Mass fraction] 97 % Gage Sanchez IT SECURITY MANAGER-C Work Phone: [phone])[phone] [place] [address] 01-17-2025 16:37-0400 Systolic blood pressure 132 mm[Hg] Gage Vargasder IT SECURITY MANAGER-C Work Phone: [phone] [place] [address] 11-19-2024 14:13-0500 Body mass index (BMI) [Ratio] 29.8 kg/m2 Gage Sanchez IT SECURITY MANAGER-C Work Phone: [phone] [place] [address] 11-19-2024 14:13-0500 Body weight 83.91 kg Gage Sanchez IT SECURITY MANAGER-C Work Phone: [phone] [place] [address] 09-07-2024 09:09-0500 Body height 170.2 cm Heron Lyons MD Work Phone: [facility] 09-07-2024 09:09-0500 Body mass index (BMI) [Ratio] 28.58 kg/m2 Heron Lyons MD Work Phone: [facility] 09-07-2024 09:09-0500 Body weight 82.78 kg Heron Lyons MD Work Phone: [facility] 12-24-2023 14:27-0400 Body height 162.56 cm [facility] 12-24-2023 14:27-0400 Body mass index (BMI) [Ratio] 34 kg/m2 [facility] 12-24-2023 14:27-0400 Body temperature 97.9 [degF] [facility] 12-24-2023 14:27-0400 Body weight 90.1 kg [facility] 12-24-2023 14:27-0400 Diastolic blood pressure 90 mm[Hg] [facility] 12-24-2023 14:27-0400 Heart rate 96 /min [facility] 12-24-2023 14:27-0400 Respiratory rate 16 /min [facility] 12-24-2023 14:27-0400 SaO2% (BldA) [Mass fraction] 98 % [facility] 12-24-2023 14:27-0400 Systolic blood pressure 177 mm[Hg] [facility] 08-17-2023 07:45-0500 Body height 170.2 cm Kasey Coyner SENIOR ORACLE DBA.PROPERTY HANDLER Work Phone: [facility] 08-17-2023 07:45-0500 Body weight 87.54 kg Kasey Coyner SENIOR ORACLE DBA.PROPERTY HANDLER Work Phone: [facility] 07-23-2023 02:51-0400 Diastolic blood pressure 77 mm[Hg] [facility] 07-23-2023 02:51-0400 Heart rate 84 /min [facility] 07-23-2023 02:51-0400 Respiratory rate 18 /min [facility] 07-23-2023 02:51-0400 SaO2% (BldA) [Mass fraction] 95 % [facility] 07-23-2023 02:51-0400 Systolic blood pressure 139 mm[Hg] [facility] 07-23-2023 00:23-0400 Body height 170.18 cm [facility] 07-23-2023 00:23-0400 Body mass index (BMI) [Ratio] 29.5 kg/m2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
== END | disposition home or self-care (01) ==
LOC: MRI 13:07
PROVIDERS: Referring Provider Orthopaedic Surgery Sports Medicine; Visit Provider Orthopaedic Surgery Sports Medicine
DX: M19.211 Secondary osteoarthritis, right shoulder (principal)
CPT/HCPCS: 73221